=== PATIENT | female | born 1970 | race Hispanic/Latino ===

== ENCOUNTER 2018-07-30 13:42 | Emergency (ER) | payer OTHER ==
[~2018-07-30] VITALS: Ht 172.7 cm; Wt 134.9 kg
[~2018-07-30 13:42] MED LIST: DOXEPIN HCL100 MG PO; PRILOSEC20 MG PO; WELLBUTRIN100 MG PO; Z.0.CITALOPRAM HBR40; ZOLOFT100 MG PO; [UNRECOGNIZED DRUG - OTHER]; [UNRECOGNIZED DRUG - OTHER]
[2018-07-30] MEDS ORDERED: SODIUM CHLORIDE 0.9% 1000ML 1,000 ML ONE (14:15)
[2018-07-30] MEDS ORDERED: KETOROLAC TROMETHAMINE 30 MG/ML VIAL IV STA (15:28)
[2018-07-30] MEDS ORDERED: DICYCLOMINE HCL 20 MG TAB PO ONE (15:30)
[2018-07-30] MEDS ORDERED: ONDANSETRON HCL 4 MG ORAL DISINTEGRATING TAB PO ONE (15:30)
[2018-07-30] MEDS ORDERED: ONDANSETRON HCL INJ 2 MG/ML VIAL IV STA (15:37)
[2018-07-30] MEDS ORDERED: ONDANSETRON HCL INJ 2 MG/ML VIAL IV NR (15:45)
--- NOTE | 2018-07-30 15:54 | Diagnostic Imaging Report ---
EXAMINATION: CT of the abdomen and pelvis with contrast. TECHNIQUE: Helical CT images of the abdomen and pelvis were performed from the lung bases to the lesser trochanters after the intravenous administration of 100 cc of Isovue 300 and the oral administration of none. Coronal and sagittal reformatted images were obtained. COMPARISON: September 19, 2017 CLINICAL HISTORY:Abdominal pain DISCUSSION: ABDOMEN/PELVIS: LOWER THORAX:Unremarkable. HEPATOBILIARY: Hepatic steatosis No intra-or extrahepatic biliary ductal dilation. The gallbladder is normal. SPLEEN: No splenomegaly. PANCREAS: No focal masses or ductal dilatation. ADRENALS: No adrenal nodules. KIDNEYS/URETERS: 2 cm left renal hypodensity, likely cyst and is stable. PELVIC ORGANS/BLADDER: The bladder is normal. Hysterectomy. PERITONEUM/RETROPERITONEUM: No free air or fluid. LYMPH NODES: No intra-abdominal, retroperitoneal, pelvic or inguinal lymphadenopathy. VESSELS: The celiac trunk,superior and inferior mesenteric and bilateral renal arteries are patent The portal, superior mesenteric and splenic veins are patent. GI TRACT: No distention or wall thickening. Appendix appears absent. Lap band at the gastroesophageal junction appears intact. No slippage. BONES AND SOFT TISSUE: No bony destructive lesions. Sclerosis at the sacroiliac joint related to prior stress response. IMPRESSION: No acute CT finding. Hepatic steatosis. Lap band without slippage. Signed by: Dr. Tushar Gary M.D. on 07/30/2018 3:50 PM
[2018-07-30] MEDS ORDERED: ZOFRAN ODT4 MG SL (17:08)
[2018-07-30] MEDS ORDERED: DICYCLOMINE HCL20 MG PO (17:08)
== END 2018-07-30 17:34 | disposition home or self-care (01) ==
LOC: FSED 13:42
DX: R10.30 Lower abdominal pain, unspecified (principal); R11.2 Nausea with vomiting, unspecified; A09 Infectious gastroenteritis and colitis, unspecified; A08.0 Rotaviral enteritis; K21.9 Gastro-esophageal reflux disease without esophagitis; F32.9 Major depressive disorder, single episode, unspecified
CPT/HCPCS: 74177; 80053; 81003; 85025; 99284; J1885; J7030

== ENCOUNTER 2018-12-09 11:04 | Emergency (ER) | payer OTHER ==
[~2018-12-09] VITALS: Ht 172.7 cm; Wt 134.7 kg
[~2018-12-09 11:04] MED LIST changes: +DICYCLOMINE HCL20 MG PO; +ZOFRAN ODT4 MG SL
--- OUTSIDE RECORDS SUMMARY | 2018-12-09 11:08 | XMS REPORT | Clinical Summary ---
Author Author [employer] Organization [employer] Address Unknown Phone Unavailable Care Team Providers Care Biller Name Role Phone Cara Durand MD PCP Allergies No Known Allergies Medications End Date Status Medication Sig Dispensed Refills Start Date Active betamethasone Apply 1 0 dipropionate 0.05 % application 8 lotion topically 2 (two) times a day. APPLY TO SCALP Active desoximetasone (TOPICORT) Apply 1 0 0.25 % ointment application 8 topically 2 (two) times a day. Monday THRU Monday ONLY. LEGS, KNEE CAP, ELBOW Active etanercept (ENBREL) 50 Inject 50 mg 0 mg/mL (0.98 mL) injection under the 8 skin 2 times weekly. Active mometasone (ELOCON) 0.1 % Apply 1 0 ointment application 8 topically 2 (two) times a day. Monday THRU Monday ONLY. TAIL BONE, STOMACH AND BACK OF EARS Active acetaminophen (TYLENOL) Take 325 mg 0 325 MG tablet by mouth every 6 (six) hours as needed for fever. 06/27/2018 Discontinued calcipotriene (DOVONOX) Apply 1 0 0.005 % ointment application 8 topically 2 (two) times a day. Monday AND Monday ONLY. APPLY TO LEG, KNEE CAPS ELBOWS 04/27/2018 Discontinued ibuprofen (ADVIL,MOTRIN) Take 200 mg 0 200 MG tablet by mouth every 6 (six) hours as needed for mild pain. 05/28/2018 pantoprazole (PROTONIX) Take 1 tablet 30 tablet 0 40 MG EC tablet (40 mg total) 8 by mouth daily for 30 days. 07/27/2018 omeprazole (PriLOSEC) 20 Take 1 30 capsule 0 MG capsule capsule (20 8 mg total) by mouth 2 (two) times a day before meals for 30 days. 09/22/2018 L. Take 2 60 each 0 acidophilus,casei,rhamnos capsules by 8 us (BIO K PLUS) 50 mouth daily billion cell for 30 days. capsule,delayed release(DR/EC) capsule 09/02/2018 acetaminophen-codeine Take 1 tablet 40 tablet 0 (TYLENOL WITH CODEINE #3) by mouth 8 300-30 mg per tablet every 6 (six) hours as needed (Pain) for up to 10 days. 09/02/2018 vancomycin (VANCOCIN) 50 Take 5 mL 200 mL 0 mg/ml suspension oral (250 mg 8 suspension total) by mouth 4 (four) times a day for 10 days. 09/02/2018 metroNIDAZOLE (FLAGYL) Take 1 tablet 30 tablet 0 500 MG tablet (500 mg 8 total) by mouth 3 (three) times a day for 10 days. Active Problems Problem Noted Date Colitis due to Clostridium difficile 08/20/2018 C. difficile enteritis 08/17/2018 Generalized abdominal pain 04/26/2018 Encounters Care Team Description Date Type Specialty Jorge Luis Hall MD Siddiqui, Imran Alam, MD C. difficile enteritis (Primary Dx); Left lower quadrant pain 08/17/2018 Hospital General Internal Medicine - Encounter 08/24/2018 Anthony Dunham MD ESOPHAGOGASTRODUODENOSCOPY (EGD) 06/26/2018 Surgery Gastroenterology Rose Marie Patel 06/26/2018 Anesthesia Gastroenterology Event Jarred Quiñonez MD Yerramadha, Muralidhar Reddy, MD Siddiqui, Imran Alam, MD Generalized abdominal pain (Primary Dx); Microscopic hematuria 06/22/2018 Emergency General Internal Medicine - 06/27/2018 Cory Ram MD 04/27/2018 Anesthesia Gastroenterology Event Isaiah Mcfadden MD ESOPHAGOGASTRODUODENOSCOPY (EGD) 04/27/2018 Surgery Gastroenterology Song Gordon MD Teqwimuah, Remy, DO Generalized abdominal pain (Primary Dx) 04/26/2018 Emergency General Surgery - 04/27/2018 after 12/08/2017 Social History Date Tobacco Use Types Packs/Day Years Used Never Smoker Smokeless Tobacco: Never Used Alcohol Use Drinks/Week oz/Week Comments No Sex Assigned at Date Recorded Not on file Industry Job Start Date Occupation Not on file Not on file Not on file Travel End Travel History Travel Start No recent travel history available. Last Filed Vital Signs Time Taken Vital Sign Reading 08/24/2018 12:36 PM CDT Blood Pressure 126/81 08/24/2018 12:36 PM CDT Pulse 85 08/24/2018 12:36 PM CDT Temperature 37.1 C (98.8 F) 08/24/2018 12:36 PM CDT Respiratory Rate 18 08/24/2018 12:36 PM CDT Oxygen Saturation 99% - Inhaled Oxygen - Concentration 08/17/2018 6:49 PM CDT Weight 132 kg (292 lb) 08/17/2018 6:49 PM CDT Height 172.7 cm (5' 8") 08/17/2018 6:49 PM CDT Body Mass Index 44.4 Plan of Treatment Health Maintenance Due Date Last Done Comments CERVICAL CANCER SCREENING 1993 INFLUENZA VACCINE 06/13/2018 12/12/2017 Procedures Comments Procedure Name Priority Date/Time Associated Diagnosis HEMOGLOBIN & HEMATOCRIT Routine 08/22/2018 5:[address] ABDOMEN PELVIS W WO Routine 08/20/2018 CONTRAST 8:05 PM CDT CLOSTRIDIUM DIFFICILE Routine 08/19/2018 TOXIN 8:01 PM CDT ESTIMATED GFR Routine 08/19/2018 4:54 AM CDT HC COMPLETE BLD COUNT Routine 08/19/2018 W/AUTO DIFF 4:54 AM CDT BASIC METABOLIC PANEL Routine 08/19/2018 4:54 AM CDT HCG QUALITATIVE, URINE STAT 08/17/2018 SCREEN 10:21 PM CDT URINALYSIS SCREEN AND STAT 08/17/2018 MICROSCOPY, WITH REFLEX 10:21 PM CDT TO CULTURE URINE CULTURE STAT 08/17/2018 10:[address] ABDOMEN PELVIS W STAT 08/17/2018 CONTRAST 10:07 PM CDT ESTIMATED GFR STAT 08/17/2018 8:15 PM CDT LIPASE LEVEL STAT 08/17/2018 8:15 PM CDT COMPREHENSIVE METABOLIC STAT 08/17/2018 PANEL 8:15 PM CDT HC COMPLETE BLD COUNT STAT 08/17/2018 W/AUTO DIFF 8:15 PM CDT ESOPHAGOGASTRODUODENOSCOP 06/26/2018 ABDOMINAL PAIN Y (EGD) 12:45 PM CDT SURGICAL PATHOLOGY Routine 06/26/2018 REQUEST 9:51 AM CDT NM HEPATOBILIARY W PHARM Routine 06/25/2018 3:53 PM CDT ZZESTIMATED GFR Routine 06/25/2018 9:25 AM CDT HC COMPLETE BLD COUNT Routine 06/25/2018 W/AUTO DIFF 9:25 AM CDT COMPREHENSIVE METABOLIC Routine 06/25/2018 PANEL 9:25 AM CDT ZZESTIMATED GFR Routine 06/23/2018 5:20 AM CDT LIPASE LEVEL Routine 06/23/2018 5:20 AM CDT COMPREHENSIVE METABOLIC Routine 06/23/2018 PANEL 5:20 AM CDT HC COMPLETE BLD COUNT Routine 06/23/2018 W/AUTO DIFF 5:20 AM CDT ECG 12-LEAD STAT 06/23/2018 1:[address] ABDOMEN PELVIS W STAT 06/23/2018 CONTRAST 12:14 AM CDT ZZESTIMATED GFR Routine 06/22/2018 11:30 PM CDT LIPASE LEVEL Routine 06/22/2018 11:30 PM CDT COMPREHENSIVE METABOLIC Routine 06/22/2018 PANEL 11:30 PM CDT US GALLBLADDER STAT 06/22/2018 11:06 PM CDT URINALYSIS SCREEN AND STAT 06/22/2018 MICROSCOPY, WITH REFLEX 10:45 PM CDT TO CULTURE ECG ED PRELIMINARY Routine 06/22/2018 INTERPRETATION 10:43 PM CDT PARTIAL THROMBOPLASTIN STAT 06/22/2018 TIME (PTT) 10:30 PM CDT PROTHROMBIN TIME WITH INR STAT 06/22/2018 10:30 PM CDT HC COMPLETE BLD COUNT STAT 06/22/2018 W/AUTO DIFF 10:30 PM CDT FL UPPER GI AND SMALL Routine 04/27/2018 BOWEL 2:30 PM CDT SURGICAL PATHOLOGY Routine 04/27/2018 REQUEST 7:49 AM CDT ESOPHAGOGASTRODUODENOSCOP 04/27/2018 Abdominal pain Y (EGD) 7:30 AM CDT ZZESTIMATED GFR Routine 04/27/2018 4:52 AM CDT BASIC METABOLIC PANEL Routine 04/27/2018 4:52 AM CDT HC COMPLETE BLD COUNT Routine 04/27/2018 W/AUTO DIFF 4:[address] ABDOMEN PELVIS WO STAT 04/26/2018 CONTRAST 5:08 PM CDT OCCULT BLOOD, STOOL Routine 04/26/2018 5:00 PM CDT ZZESTIMATED GFR STAT 04/26/2018 4:41 PM CDT LIPASE LEVEL STAT 04/26/2018 4:41 PM CDT COMPREHENSIVE METABOLIC STAT 04/26/2018 PANEL 4:41 PM CDT HC COMPLETE BLD COUNT STAT 04/26/2018 W/AUTO DIFF 4:41 PM CDT URINALYSIS SCREEN AND STAT 04/26/2018 MICROSCOPY, WITH REFLEX 2:17 PM CDT TO CULTURE after 12/08/2017 Results * Hemoglobin & hematocrit (08/22/2018 5:02 AM CDT) HGB 14.3 12.0 - 16.0 g/dL [facility] DEPARTMENT OF PATHOLOGY AND GENOMIC MEDICINE HCT 46.1 37.0 - 47.0 % [facility] DEPARTMENT OF PATHOLOGY AND GENOMIC MEDICINE Specimen Blood Performing Organization Address City/State/Zipcode Phone Number [facility] [place] [address] [place] [address] PATHOLOGY AND GENOMIC MEDICINE * CT Abdomen Pelvis W Wo Contrast (08/20/2018 8:05 PM CDT) Narrative Performed At EXAMINATION:CT ABDOMEN PELVIS W WO CONTRAST [facility] CLINICAL HISTORY:Abd paindiverticulitis suspected TECHNIQUE: CT of the abdomen and pelvis was performed without contrast utilizing renal stone protocol. Subsequently, postcontrast CT of the abdomen and pelvis was obtained with multiphase renal mass and CT urogram protocol. Sagittal and coronal computerized reformatted images were also obtained. COMPARISON:August 17, 2018 CT abdomen and pelvis noncontrast FINDINGS: Lung bases are clear. No free intraperitoneal air or fluid. Precontrast sequences through the abdomen and pelvis show minimal atherosclerotic change in aorta. No tract calculi. No pancreatic calcifications. Abdomen: Gastric lap band device as on previous. Diffuse fatty infiltration of the liver unchanged. No mass or abnormal enhancement. Gallbladder grossly unremarkable. Adrenal glands normal size. Pancreas normal. Spleen normal size. Abdominal aorta normal caliber. Kidneys are normal in size. There is no hydronephrosis. No renal calculus. No perinephric infiltration. Benign 16 mm cortical cyst upper pole left kidney. Symmetrical bilateral renal function. Scattered fecal material in the colon. No obstruction seen in the abdomen Pelvis: No bowel obstruction. No diverticulitis. Bladder decompressed. Uterus and ovaries not seen. No pelvic mass or sidewall adenopathy. Appendix not identified. Minimal degenerative changes lower thoracic spine IMPRESSION: Fatty infiltration of the liver. No bowel obstruction or diverticulitis. Left-sided renal cortical cyst benign in appearance. Nonvisualization of the appendix Gastric banding changes as before Otherwise unremarkable CT abdomen and pelvis [id number] Procedure Note Hm Interface, Radiology Results Incoming - 08/20/2018 8:17 PM CDT EXAMINATION: CT ABDOMEN PELVIS W WO CONTRAST CLINICAL HISTORY: Abd pain diverticulitis suspected TECHNIQUE: CT of the abdomen and pelvis was performed without contrast utilizing renal stone protocol. Subsequently, postcontrast CT of the abdomen and pelvis was obtained with multiphase renal mass and CT urogram protocol. Sagittal and coronal computerized reformatted images were also obtained. COMPARISON: August 17, 2018 CT abdomen and pelvis noncontrast FINDINGS: Lung bases are clear. No free intraperitoneal air or fluid. Precontrast sequences through the abdomen and pelvis show minimal atherosclerotic change in aorta. No tract calculi. No pancreatic calcifications. Abdomen: Gastric lap band device as on previous. Diffuse fatty infiltration of the liver unchanged. No mass or abnormal enhancement. Gallbladder grossly unremarkable. Adrenal glands normal size. Pancreas normal. Spleen normal size. Abdominal aorta normal caliber. Kidneys are normal in size. There is no hydronephrosis. No renal calculus. No perinephric infiltration. Benign 16 mm cortical cyst upper pole left kidney. Symmetrical bilateral renal function. Scattered fecal material in the colon. No obstruction seen in the abdomen Pelvis: No bowel obstruction. No diverticulitis. Bladder decompressed. Uterus and ovaries not seen. No pelvic mass or sidewall adenopathy. Appendix not identified. Minimal degenerative changes lower thoracic spine IMPRESSION: Fatty infiltration of the liver. No bowel obstruction or diverticulitis. Left-sided renal cortical cyst benign in appearance. Nonvisualization of the appendix Gastric banding changes as before Otherwise unremarkable CT abdomen and pelvis [id number] Performing Organization Address City/State/Zipcode Phone Number [facility] [address] [place] [address] * C difficile toxin (08/19/2018 8:01 PM CDT) Clostridium difficile Positive for C. difficile [facility] DEPARTMENT OF toxin toxin (A) PATHOLOGY AND Comment: GENOMIC MEDICINE Specimen Information Specimen Source: Stool Specimen Site: Not otherwise specified Specimen Stool - Not otherwise specified Performing Organization Address City/State/Zipcode Phone Number [facility] DEPARTMENT OF [address] [place] [address] PATHOLOGY AND GENOMIC MEDICINE * Estimated GFR (08/19/2018 4:54 AM CDT) Only the most recent of 2 results within the time period is included. Estimated GFR >=90 mL/min/1.73 m2 [facility] DEPARTMENT OF Comment: PATHOLOGY AND [employer] GENOMIC MEDICINE rpretation G1 >=90 Normal or high G2 60-89Mildly decreased [id number] Mildly to moderately decreased [id number] Moderately to severely decreased G4 15-29Severely decreased G5 <15Kidney failure The eGFR was calculated using the Chronic Kidney Disease Epidemiology Collaboration (CKD-EPI) equation. Interpretation is based on recommendations of the National Kidney Foundation-Kidney Disease Outcomes Quality Initiative (NKF-KDOQI) published in 2014. Specimen Plasma specimen Performing Organization Address City/[facility]/Zipcode Phone [place] [place] [address] [place] [address] PATHOLOGY AND GENOMIC MEDICINE * CBC with platelet and differential (08/19/2018 4:54 AM CDT) Only the most recent of 7 results within the time period is included. WBC 6.17 4.50 - 11.00 k/uL [facility] DEPARTMENT OF PATHOLOGY AND GENOMIC MEDICINE RBC 4.58 4.20 - 5.50 m/uL [facility] DEPARTMENT OF PATHOLOGY AND GENOMIC MEDICINE HGB 12.8 12.0 - 16.0 g/dL [facility] DEPARTMENT OF PATHOLOGY AND GENOMIC MEDICINE HCT 40.3 37.0 - 47.0 % [facility] DEPARTMENT OF PATHOLOGY AND GENOMIC MEDICINE MCV 88.0 82.0 - 100.0 fL [facility] DEPARTMENT OF PATHOLOGY AND GENOMIC MEDICINE MCH 27.9 27.0 - 34.0 pg [facility] DEPARTMENT OF PATHOLOGY AND GENOMIC MEDICINE MCHC 31.8 31.0 - 37.0 g/dL [facility] DEPARTMENT OF PATHOLOGY AND GENOMIC MEDICINE RDW - SD 42.6 37.0 - 55.0 fL [facility] DEPARTMENT OF PATHOLOGY AND GENOMIC MEDICINE MPV 9.3 8.8 - 13.2 fL [facility] DEPARTMENT OF PATHOLOGY AND GENOMIC MEDICINE Platelet count 241 150 - 400 k/uL [facility] DEPARTMENT OF PATHOLOGY AND GENOMIC MEDICINE Nucleated RBC 0.00 /100 WBC [facility] DEPARTMENT OF PATHOLOGY AND GENOMIC MEDICINE Neutrophils 66.0 39.0 - 69.0 % [facility] DEPARTMENT OF PATHOLOGY AND GENOMIC MEDICINE Lymphocytes 25.1 25.0 - 45.0 % [facility] DEPARTMENT OF PATHOLOGY AND GENOMIC MEDICINE Monocytes 5.7 0.0 - 10.0 % [facility] DEPARTMENT OF PATHOLOGY AND GENOMIC MEDICINE Eosinophils 2.6 0.0 - 5.0 % [facility] DEPARTMENT OF PATHOLOGY AND GENOMIC MEDICINE Basophils 0.3 0.0 - 1.0 % [facility] OF PATHOLOGY AND GENOMIC MEDICINE Specimen Blood Performing Organization Address City/[facility] Cent[facility] Phone Number [address] [place] [phone] PATHOLOGY [facility] * Basic metabolic panel (08/19/2018 4:54 AM CDT) Only the most recent of 2 results within the time period is included. Sodium 141 135 - 148 mEq/L [facility] DEPARTMENT OF PATHOLOGY AND GENOMIC MEDICINE Potassium 3.9 3.5 - 5.0 mEq/L [facility] DEPARTMENT OF PATHOLOGY AND GENOMIC MEDICINE Chloride 104 98 - 112 mEq/L [facility] DEPARTMENT OF PATHOLOGY AND GENOMIC MEDICINE CO2 26 24 - 31 mEq/L [facility] DEPARTMENT OF PATHOLOGY AND GENOMIC MEDICINE Anion gap 11@ANIO 7 - 15 mEq/L [facility] DEPARTMENT OF PATHOLOGY AND GENOMIC MEDICINE BUN 17 6 - 20 mg/dL [facility] DEPARTMENT OF PATHOLOGY AND GENOMIC MEDICINE Creatinine 0.60 0.50 - 0.90 mg/dL [facility] DEPARTMENT OF PATHOLOGY AND GENOMIC MEDICINE Glucose 97 65 - 99 mg/dL [facility] DEPARTMENT OF PATHOLOGY AND GENOMIC MEDICINE Calcium 9.5 8.3 - 10.2 mg/dL [facility] DEPARTMENT OF PATHOLOGY AND GENOMIC MEDICINE Specimen Plasma specimen Performing Organization Address City/[facility] Cent[facility]ode Phone Number [place] [address] [place] [phone] PATHOLOGY [facility] * Urinalysis screen and microscopy, with reflex to culture (08/17/2018 10:21 PM CDT) Only the most recent of 3 results within the time period is included. Specimen site Clean catch [facility] DEPARTMENT OF PATHOLOGY AND GENOMIC MEDICINE Color, UA Yellow [facility] DEPARTMENT OF PATHOLOGY AND GENOMIC MEDICINE Appearance, UA Clear [facility] DEPARTMENT OF PATHOLOGY AND GENOMIC MEDICINE Specific gravity, UA 1.030 1.001 - 1.035 [facility] DEPARTMENT OF PATHOLOGY AND GENOMIC MEDICINE pH, UA 5.0 5.0 - 8.5 [facility] DEPARTMENT OF PATHOLOGY AND GENOMIC MEDICINE Protein, UA Negative Negative [facility] DEPARTMENT OF PATHOLOGY AND GENOMIC MEDICINE Glucose, UA Negative Negative [facility] DEPARTMENT OF PATHOLOGY AND GENOMIC MEDICINE Ketones, UA Negative Negative [facility] DEPARTMENT OF PATHOLOGY AND GENOMIC MEDICINE Bilirubin, UA Negative Negative [facility] DEPARTMENT OF PATHOLOGY AND GENOMIC MEDICINE Blood, UA Negative Negative [facility] DEPARTMENT OF PATHOLOGY AND GENOMIC MEDICINE Nitrite, UA Negative Negative [facility] DEPARTMENT OF PATHOLOGY AND GENOMIC MEDICINE Urobilinogen, UA Negative <2.0 [facility] DEPARTMENT OF PATHOLOGY AND GENOMIC MEDICINE Leukocyte esterase, UA Negative Negative [facility] DEPARTMENT OF PATHOLOGY AND GENOMIC MEDICINE Epithelial cells, UA Many /HPF [facility] DEPARTMENT OF PATHOLOGY AND GENOMIC MEDICINE WBC, UA 0-5 0 - 4 /HPF [facility] DEPARTMENT OF PATHOLOGY AND GENOMIC MEDICINE RBC, UA 0-5 0 - 5 /HPF [facility] DEPARTMENT OF PATHOLOGY AND GENOMIC MEDICINE Bacteria, UA None seen None seen [facility] DEPARTMENT OF PATHOLOGY AND GENOMIC MEDICINE Yeast, UA None seen [facility] DEPARTMENT OF PATHOLOGY AND GENOMIC MEDICINE Yeast with pseudohyphae, None seen [facility] DEPARTMENT OF UA PATHOLOGY AND GENOMIC MEDICINE Specimen Urine Performing Organization Address [facility] Cent[facility]ode Phone Number [address] [place] [address] PATHOLOGY AND GENOMIC MEDICINE * hCG qualitative, urine screen (08/17/2018 10:21 PM CDT) hCG qualitative, urine Negative Negative [facility] DEPARTMENT OF Comment: PATHOLOGY AND The manufacturers stated GENOMIC MEDICINE sensitivity of HcG test for serum is >/=10 mIU/ml and urine is >/=20mIU/ml. Specimen Urine Performing Organization Address [facility] Centercode Phone Number [address] [place] [address] PATHOLOGY AND [facility] MEDICINE * Urine culture (08/17/2018 10:21 PM CDT) Urine culture SEE COMMENTComment: [facility] DEPARTMENT OF Bacteriuria screen negative. PATHOLOGY AND GENOMIC MEDICINE Specimen Urine Performing Organization Address [facility] Centercode Phone Number [address] [place] [address] PATHOLOGY AND [facility] MEDICINE * CT Abdomen Pelvis W Contrast (08/17/2018 10:07 PM CDT) Only the most recent of 2 results within the time period is included. Narrative Performed At Examination:CT ABDOMEN PELVIS W CONTRAST [facility] Clinical History: eval for diverticulitis Comparison: None. Findings: CT scans are performed using radiation dose reduction techniques.Technical factors are evaluated and adjusted to ensure appropriate moderation of exposure.Automated dose management technology is applied to adjust radiation exposure while achieving a diagnostic quality image. CT scan of the abdomen and pelvis was performed after intravenous contrast. The liver is diffusely low in density. The spleen, pancreas, gallbladder, and adrenal glands are unremarkable. There is a left renal cyst noted measuring 2.1 cm. Right kidney is unremarkable. No hydronephrosis is seen. The appendix is not visualized. No bowel thickening or fat stranding is seen. No bowel dilatation is seen. No free air or fluid is seen. Urinary bladder is unremarkable. The visualized lung bases are clear. The patient is status post gastric banding. IMPRESSION: 1. Status post gastric banding. 2. Fatty liver. 3. Otherwise no acute abnormality identified in abdomen or pelvis. [id number] Procedure Note Interface, Radiology Results Incoming - 08/17/2018 10:16 PM CDT Examination: CT ABDOMEN PELVIS W CONTRAST Clinical History: eval for diverticulitis Comparison: None. Findings: CT scans are performed using radiation dose reduction techniques. Technical factors are evaluated and adjusted to ensure appropriate moderation of exposure. Automated dose management technology is applied to adjust radiation exposure while achieving a diagnostic quality image. CT scan of the abdomen and pelvis was performed after intravenous contrast. The liver is diffusely low in density. The spleen, pancreas, gallbladder, and adrenal glands are unremarkable. There is a left renal cyst noted measuring 2.1 cm. Right kidney is unremarkable. No hydronephrosis is seen. The appendix is not visualized. No bowel thickening or fat stranding is seen. No bowel dilatation is seen. No free air or fluid is seen. Urinary bladder is unremarkable. The visualized lung bases are clear. The patient is status post gastric banding. IMPRESSION: 1. Status post gastric banding. 2. Fatty liver. 3. Otherwise no acute abnormality identified in abdomen or pelvis. [id number] Performing Organization Address City/State/Zipcode Phone Number [facility] [address] [place] [address] * Lipase level (08/17/2018 8:15 PM CDT) Only the most recent of 4 results within the time period is included. Lipase 41 13 - 60 U/L [facility] DEPARTMENT OF PATHOLOGY AND GENOMIC MEDICINE Specimen Plasma specimen Performing Organization Address City/State/Zipcode Phone Number [facility] [address] [address] PATHOLOGY AND GENOMIC MEDICINE * Comprehensive metabolic panel (08/17/2018 8:15 PM CDT) Only the most recent of 5 results within the time period is included. Sodium 144 135 - 148 mEq/L [facility] DEPARTMENT OF PATHOLOGY AND GENOMIC MEDICINE Potassium 4.3 3.5 - 5.0 mEq/L [facility] DEPARTMENT OF PATHOLOGY AND GENOMIC MEDICINE Chloride 104 98 - 112 mEq/L [facility] DEPARTMENT OF PATHOLOGY AND GENOMIC MEDICINE CO2 28 24 - 31 mEq/L [facility] DEPARTMENT OF PATHOLOGY AND GENOMIC MEDICINE Anion gap 12@ANIO 7 - 15 mEq/L [facility] DEPARTMENT OF PATHOLOGY AND GENOMIC MEDICINE BUN 18 6 - 20 mg/dL [facility] DEPARTMENT OF PATHOLOGY AND GENOMIC MEDICINE Creatinine 0.60 0.50 - 0.90 mg/dL [facility] DEPARTMENT OF PATHOLOGY AND GENOMIC MEDICINE Glucose 96 65 - 99 mg/dL [facility] DEPARTMENT OF PATHOLOGY AND GENOMIC MEDICINE Calcium 10.6 (H) 8.3 - 10.2 mg/dL [facility] DEPARTMENT OF PATHOLOGY AND GENOMIC MEDICINE Protein 8.0 6.3 - 8.3 g/dL [facility] DEPARTMENT OF Comment: PATHOLOGY AND [employer] GENOMIC MEDICINE 4.6-7.0 g/dL 1 week 4.4-7.6 g/dL 7 months-1year 5.1-7.3 g/dL 1-2 years5.6-7 .5 g/dL >3 years6.0-8 .0 g/dL 18-150 6.3-8.3 g/dL Albumin 4.5 3.5 - 5.0 g/dL [facility] DEPARTMENT OF PATHOLOGY AND GENOMIC MEDICINE A/G ratio 1.3 0.7 - 3.8 [facility] DEPARTMENT OF PATHOLOGY AND GENOMIC MEDICINE Alkaline phosphatase 147 (H) 35 - 104 U/L [facility] DEPARTMENT OF PATHOLOGY AND GENOMIC MEDICINE AST 25 10 - 35 U/L [facility] DEPARTMENT OF PATHOLOGY AND GENOMIC MEDICINE ALT 23 5 - 50 U/L [facility] DEPARTMENT OF PATHOLOGY AND GENOMIC MEDICINE Total bilirubin 0.2 0.0 - 1.2 mg/dL [facility] DEPARTMENT OF PATHOLOGY AND GENOMIC MEDICINE Specimen Plasma specimen Performing Organization Address City/[facility]/Zipcode Phone Number [facility] [address] [place] [address] PATHOLOGY AND GENOMIC MEDICINE * Surgical pathology request (06/26/2018 9:51 AM CDT) Only the most recent of 2 results within the time period is included. [facility] DEPARTMENT OF PATHOLOGY AND GENOMIC MEDICINE Surgical pathology report See link below for PDF Lab [facility] DEPARTMENT OF Report PATHOLOGY AND GENOMIC MEDICINE Result status This is Final Report to [facility] DEPARTMENT OF [id number] PATHOLOGY AND GENOMIC MEDICINE Performing Organization Address [facility] Phone Number [place] [address] [place] [address] PATHOLOGY AND GENOMIC MEDICINE * NM Hepatobiliary W Pharm (HIDA Scan w Pharm) (06/25/2018 3:53 PM CDT) Narrative Performed At PROCEDURE: NM HEPATOBILIARY W PHARM (HIDA SCAN W PHARM) [facility] INDICATION: RUQ paincholecystitis suspected COMPARISON: Gallbladder ultrasound 06/22/2018 TECHNIQUE: The patient was injected with 6 mCi of [id number] and dynamic images of the abdomen were acquired for up to 1 hour. The patient was then given a fatty meal per protocol and imaged for an additional 60 minutes. FINDINGS: Tracer activity is seen within the gallbladder and small bowel by one hour of imaging. Following intake of a fatty meal there is normal contraction of the gallbladder with a calculated ejection fraction of 94%. IMPRESSION: 1.No scintigraphic evidence of acute cholecystitis or common bile duct obstruction. 2.Normal gallbladder ejection fraction. [facility]-[id number] Procedure Note [facility], Radiology Results Incoming - 06/25/2018 4:22 PM CDT PROCEDURE: NM HEPATOBILIARY W PHARM (HIDA SCAN W PHARM) INDICATION: RUQ pain cholecystitis suspected COMPARISON: Gallbladder ultrasound 06/22/2018 TECHNIQUE: The patient was injected with 6 mCi of [id number] and dynamic images of the abdomen were acquired for up to 1 hour. The patient was then given a fatty meal per protocol and imaged for an additional 60 minutes. FINDINGS: Tracer activity is seen within the gallbladder and small bowel by one hour of imaging. Following intake of a fatty meal there is normal contraction of the gallbladder with a calculated ejection fraction of 94%. IMPRESSION: 1. No scintigraphic evidence of acute cholecystitis or common bile duct obstruction. 2. Normal gallbladder ejection fraction. [facility]-[id number] Performing Organization Address [facility]/Zipcode Phone Number [place] [address] [place] [address] * Estimated GFR (06/25/2018 9:25 AM CDT) Only the most recent of 5 results within the time period is included. GFR Non Af Amer >90 mL/min/1.73 m2 [facility] DEPARTMENT OF PATHOLOGY AND GENOMIC MEDICINE GFR Af Amer >90 mL/min/1.73 m2 [facility] DEPARTMENT OF Comment: PATHOLOGY AND Chronic kidney disease: <60 GENOMIC MEDICINE mL/min/1.73m2 Kidney failure: <15 mL/min/1.73m2 The estimated GFR is calculated from the IDMS-traceable Modification of Diet in Renal Disease Equation. The accuracy of the calculation is poor when the creatinine is normal. Calculated values >90 mL/min/1.73m2 are not reported. This equation has not been validated in children (<18 years), women, the elderly (>70 years), or ethnic groups other than Caucasians and Americans. Specimen Plasma specimen Performing Organization Address [facility] Cent[facility]ode Phone Number [place] [phone] [place] [address] PATHOLOGY AND GENOMIC MEDICINE * ECG 12 lead (06/23/2018 1:50 AM CDT) Ventricular rate 75 [facility] Atrial rate 75 [facility] OH interval 154 [facility] QRSD interval 78 [facility] QT interval 398 [facility] QTC interval 444 [facility] P axis 1 30 [facility] QRS axis 1 15 [facility] T wave axis 13 [facility] EKG impression Normal sinus rhythm-Low [facility] MUSE voltage QRS-Inferior infarct (cited on or before 30-MAR-2016)-Cannot rule out Anterior infarct (cited on or before 12-JUL-2007)-Abnormal ECG-In automated comparison with ECG of 12-JUN-2017 16:08,-Questionable change in initial forces of Inferior leads- Performing Organization Address [facility]y Phone Number [facility] [address] [place] [address] * US Gallbladder (06/22/2018 11:06 PM CDT) Narrative Performed At EXAMINATION:US GALLBLADDER [facility] CLINICAL HISTORY: Right upper quadrant pain COMPARISON:None. FINDINGS: Gallbladder: The gallbladder is without evidence of calculi. The gallbladder wall is not thickened and there is no pericholecystic fluid. CBD: 4 mm Portal vein: The portal vein demonstrates normal hepatopedal flow. Liver: The visualized portions of liver are unremarkable. IMPRESSION: Normal gallbladder ultrasound examination. [id number] Procedure Note Hm Interface, Radiology Results Incoming - 06/22/2018 11:17 PM CDT EXAMINATION: US GALLBLADDER CLINICAL HISTORY: Right upper quadrant pain COMPARISON: None. FINDINGS: Gallbladder: The gallbladder is without evidence of calculi. The gallbladder wall is not thickened and there is no pericholecystic fluid. CBD: 4 mm Portal vein: The portal vein demonstrates normal hepatopedal flow. Liver: The visualized portions of liver are unremarkable. IMPRESSION: Normal gallbladder ultrasound examination. [facility]-[id number] Performing Organization Address [facility]cony Phone Number [facility] [address] [place] [address] * ECG ED Preliminary Interpretation - NOT AN ORDER (06/22/2018 10:43 PM CDT) Narrative Performed At Jarred Quiñonez MD 06/23/20183:13 PM ECG ED Preliminary Interpretation - Not an Order Performed by: SHAJI DWYER Authorized by: JARRED QUIÑONEZ ECG reviewed by ED Physician in the absence of a car seat coverer: yes Previous ECG: Previous ECG:Compared to current Comparison ECG info:06/12/2017 Similarity:No change Interpretation: Interpretation: abnormal Rate: ECG rate:75 ECG rate assessment: normal Rhythm: Rhythm: sinus rhythm Ectopy: Ectopy: none Conduction: Conduction: normal ST segments: ST segments:Normal T waves: T waves: normal Comments: Low voltage QRS , inferior infarct age undetermined. Cannot rule our ant infarct, age undetermined * Partial thromboplastin time, activated (06/22/2018 10:30 PM CDT) PTT 28.3 23.0 - 36.0 sec [facility] DEPARTMENT OF Comment: PATHOLOGY AND PTT therapeutic range for GENOMIC MEDICINE unfractionated heparin is 61.0-112.0 seconds which corresponds to Anti-Xa 0.3-0.7 U/ml. Specimen Blood Performing Organization Address City/[facility]/Zipcode Phone Number [facility] [place] [address] [place] [address] PATHOLOGY AND GENOMIC MEDICINE * Prothrombin time with INR (06/22/2018 10:30 PM CDT) Prothrombin time 13.2 12.0 - 15.0 sec [facility] DEPARTMENT OF PATHOLOGY AND GENOMIC MEDICINE INR 1.0 [facility] DEPARTMENT OF Comment: PATHOLOGY AND The International Normalized GENOMIC MEDICINE Ratio (INR) is a therapeutic monitoring tool for patients who are stable on oral anticoagulant therapy. An INR of 2.0-3.0 is suggested for deep vein thrombosis/pulmonary embolism. Specimen Blood Performing Organization Address [facility]cony Phone [place] [place] [address] [place] [address] PATHOLOGY AND GENOMIC MEDICINE * FL Upper GI and Small Bowel Series (04/27/2018 2:30 PM CDT) Narrative Performed At EXAMINATION:FL UPPER GI AND SMALL BOWEL [facility] CLINICAL HISTORY:abdominal pains p gastric band COMPARISON:None. TECHNIQUE:UPPER GI SERIES AND SMALL BOWEL FOLLOW-THROUGH was performed with effervescent granules and barium. FLUOROSCOPIC TIME: 3 minutes 40 seconds, 11 spot images were obtained. IMPRESSION: There is narrowing of the gastric lumen at the level of the gastric band with only a a few millimeters of lumen remaining This did allow passage of contrast material although this is very narrowed and of concern for that reason.Some tertiary wave formation about that level is present and there does appear to be a small hiatal hernia with no demonstrable reflux observed. Socially the stomach was examined. No persistent intraluminal abnormalities or mucosal lesions are identified. The duodenal bulb and loop appear unremarkable to limits of visualization. IMPRESSION: 1. Marked attenuation of the gastric lumen in the fundus region by the LAP-BAND . 2. Esophageal tertiary wave formation and small hiatal hernia. Small bowel follow-through: Mucosal architecture is preserved. The transit time appears within normal limits. The terminal ileum appears within normal limits. There is no evidence of small bowel obstruction hypersecretion or mass effect. The terminal ileum appears unremarkable to the limits of visualization. IMPRESSION: No significant finding is identified [id number] Procedure Note Interface, Radiology Results Incoming - 04/27/2018 3:50 PM CDT EXAMINATION: FL UPPER GI AND SMALL BOWEL CLINICAL HISTORY: abdominal pain s p gastric band COMPARISON: None. TECHNIQUE: UPPER GI SERIES AND SMALL BOWEL FOLLOW-THROUGH was performed with effervescent granules and barium. FLUOROSCOPIC TIME: 3 minutes 40 seconds, 11 spot images were obtained. IMPRESSION: There is narrowing of the gastric lumen at the level of the gastric band with only a a few millimeters of lumen remaining This did allow passage of contrast material although this is very narrowed and of concern for that reason. Some tertiary wave formation about that level is present and there does appear to be a small hiatal hernia with no demonstrable reflux observed. Socially the stomach was examined. No persistent intraluminal abnormalities or mucosal lesions are identified. The duodenal bulb and loop appear unremarkable to limits of visualization. IMPRESSION: 1. Marked attenuation of the gastric lumen in the fundus region by the LAP-BAND . 2. Esophageal tertiary wave formation and small hiatal hernia. Small bowel follow-through: Mucosal architecture is preserved. The transit time appears within normal limits. The terminal ileum appears within normal limits. There is no evidence of small bowel obstruction hypersecretion or mass effect. The terminal ileum appears unremarkable to the limits of visualization. IMPRESSION: No significant finding is identified [id number] Performing Organization Address City/State/Zipcode Phone Number [facility] [address] [place] [address] * CT Abdomen Pelvis Wo Contrast (04/26/2018 5:08 PM CDT) Narrative Performed At EXAMINATION:CT ABDOMEN PELVIS WO CONTRAST [facility] CLINICAL HISTORY:abdominal painhx of multiple abdominal surgeriesdiverticulitis. LLQ tenderness on exam COMPARISON:None. TECHNIQUE: CT of the abdomen and pelvis without intravenous contrast. Absence of contrast decreases sensitivity for detection of focal lesions and vascular pathology. Oral contrast was used. All CT scan performed using radiation dose reduction techniques. Technical factors are evaluated and adjusted to ensure appropriate moderation of exposure. Automated dose management technology is applied to adjust the radiation dose to minimize expose whileachieving a diagnostic quality image. FINDINGS: LUNG BASES:The lung bases are clear.. HEPATOBILIARY: Fatty infiltration of the liver is noted.Limited nonenhanced evaluation of the liver is otherwise unremarkable. No biliary dilatation is seen. GALLBLADDER: No gallstones are seen. No wall thickening or pericholecystic fluid collection is identified. SPLEEN: The spleen is unremarkable.No splenomegaly. PANCREAS:No focal masses or ductal dilation. Limited nonenhanced evaluation of the pancreas is unremarkable. ADRENALS: No adrenal nodules.The adrenal glands are unremarkable. KIDNEYS: Limited nonenhanced evaluation of the kidneys is unremarkable. No renal or ureteral calculus is seen. There is no evidence of hydronephrosis. PERITONEUM/RETROPERITONEUM:No mesenteric or retroperitoneal pathologic lymphadenopathy seen. There is no evidence of free air or free fluid.. GI TRACT:The small bowel is normal in caliber. Scattered retained food debris seen throughout the colon. There is no evidence of diverticulosis. The colon is unremarkable unremarkable. No wall thickening is identified. There is no evidence of inflammatory process. The appendix not seen. No right lower quadrant inflammation is identified. A gastric lap band is noted and appears to be in satisfactory placement. The stomach is unremarkable.. VASCULATURE: Unremarkable. BONES: Unremarkable. ABDOMINAL WALL: Unremarkable. PELVIS: The urinary bladder is unremarkable. The uterus is surgically absent. No pelvic ascites seen. IMPRESSION: No CT evidence of diverticulosis, colitis or bowel obstruction. No CT evidence of renal calculus or obstructive uropathy. Mild hepatitic steatosis. Unremarkable exam otherwise. [facility]-[id number] Procedure Note Hm Interface, Radiology Results Incoming - 04/26/2018 5:24 PM CDT EXAMINATION: CT ABDOMEN PELVIS WO CONTRAST CLINICAL HISTORY: abdominal pain hx of multiple abdominal surgeries diverticulitis. LLQ tenderness on exam COMPARISON: None. TECHNIQUE: CT of the abdomen and pelvis without intravenous contrast. Absence of contrast decreases sensitivity for detection of focal lesions and vascular pathology. Oral contrast was used. All CT scan performed using radiation dose reduction techniques. Technical factors are evaluated and adjusted to ensure appropriate moderation of exposure. Automated dose management technology is applied to adjust the radiation dose to minimize expose while achieving a diagnostic quality image. FINDINGS: LUNG BASES: The lung bases are clear.. HEPATOBILIARY: Fatty infiltration of the liver is noted. Limited nonenhanced evaluation of the liver is otherwise unremarkable. No biliary dilatation is seen. GALLBLADDER: No gallstones are seen. No wall thickening or pericholecystic fluid collection is identified. SPLEEN: The spleen is unremarkable. No splenomegaly. PANCREAS:No focal masses or ductal dilation. Limited nonenhanced evaluation of the pancreas is unremarkable. ADRENALS: No adrenal nodules.The adrenal glands are unremarkable. KIDNEYS: Limited nonenhanced evaluation of the kidneys is unremarkable. No renal or ureteral calculus is seen. There is no evidence of hydronephrosis. PERITONEUM/RETROPERITONEUM: No mesenteric or retroperitoneal pathologic lymphadenopathy seen. There is no evidence of free air or free fluid.. GI TRACT: The small bowel is normal in caliber. Scattered retained food debris seen throughout the colon. There is no evidence of diverticulosis. The colon is unremarkable unremarkable. No wall thickening is identified. There is no evidence of inflammatory process. The appendix not seen. No right lower quadrant inflammation is identified. A gastric lap band is noted and appears to be in satisfactory placement. The stomach is unremarkable.. VASCULATURE: Unremarkable. BONES: Unremarkable. ABDOMINAL WALL: Unremarkable. PELVIS: The urinary bladder is unremarkable. The uterus is surgically absent. No pelvic ascites seen. IMPRESSION: No CT evidence of diverticulosis, colitis or bowel obstruction. No CT evidence of renal calculus or obstructive uropathy. Mild hepatitic steatosis. Unremarkable exam otherwise. [id number] Performing Organization Address City/State/Zipcode Phone Number [facility] [address] [place] [address] * Occult blood, stool (04/26/2018 5:00 PM CDT) Occult blood, stool Negative for occult blood. [facility] DEPARTMENT OF Comment: PATHOLOGY AND Specimen Information GENOMIC MEDICINE Specimen Source: Stool Specimen Site: Nonpreserved Specimen Stool - Nonpreserved Performing Organization Address City/State/Zipcode Phone Number [facility] DEPARTMENT OF [address] [place] [address] [place] [address] PATHOLOGY AND GENOMIC MEDICINE after 12/08/2017 Insurance Payer Benefit Subscriber ID Type Phone Address Plan / Group [facility] xxxxxxxxxxxxx Exchange EXCH[facility] Advance Directives Patient has advance care planning documents on file. For more information, jake lizarraga contact: Zachariah Loera [address] [place] [address]
--- OUTSIDE RECORDS SUMMARY | 2018-12-09 11:08 | XMS REPORT | Clinical Summary ---
Author Author [facility] Address Unknown Phone Unavailable Care Team Providers Care Purchasing Expeditor Name Role Phone Cara Durand MD PCP Unavailable Allergies No Known Allergies Medications End Date Status Medication Sig Dispensed Refills Start Date Active pantoprazole (PROTONIX) Take 1 tablet 60 tablet 1 40 MG tablet (40 mg total) 7 by mouth 2 (two) times daily. Active Problems Problem Noted Date Chest pain, unspecified type 02/06/2017 Social History Date Tobacco Use Types Packs/Day Years Used Never Smoker Alcohol Use Drinks/Week oz/Week Comments No Sex Assigned at Date Recorded Not on file Industry Job Start Date Occupation Not on file Not on file Not on file Travel End Travel History Travel Start No recent travel history available. Last Filed Vital Signs Not on file Plan of Treatment Not on file Results Not on fileafter 12/08/2017 Insurance Payer Benefit Subscriber ID Type Phone Address Plan / Group [facility] xxxxxxxxxxxxx [phone] [facility] [address] (Home) [place] [address] Wero Roqueelle Personal/F Self [id number] ([place]) [place] [address] Advance Directives For more information, please contact: [facility] [address] [place] [address] Date Inactivated Comments Code Status Date Activated 02/07/2017 6:32 PM Full Code 02/06/2017 7:44 PM This code status was determined by: Patient
[2018-12-09 11:57] LABS: BASOPHILS % 0.5 % (0.0-1.0); EOSINOPHILS # (AUTO) 0.1 (0.0-0.4); EOSINOPHILS % 2.2 % (0.0-6.0); HEMATOCRIT 41.2 % (34.2-44.1); HEMOGLOBIN 14.3 g/dL (12.0-16.0); LYMPHOCYTES # (AUTO) 1.5 (1.0-3.2); LYMPHOCYTES % 25.3 % (18.0-39.1); MEAN CORPUSCULAR HEMOGLOBIN 29.9 pg (28-32); MEAN CORPUSCULAR HGB CONC 34.7 g/dL (31-35); MONOCYTES # (AUTO) 0.3 (0.2-0.8); MONOCYTES % 4.5 % (4.4-11.3); NEUTROPHILS # (AUTO) 4.1 (2.1-6.9); PLATELET COUNT 263 x10e3/uL (140-360); RED BLOOD COUNT 4.79 x10e6/uL (3.6-5.1); RED CELL DISTRIBUTION WIDTH 13.2 % (11.7-14.4)
[2018-12-09 11:59] LABS: CLARITY,URINE CLEAR (CLEAR); COLOR,URINE YELLOW (YELLOW)
[2018-12-09 12:00] LABS: BILIRUBIN,URINE NEGATIVE (NEGATIVE); KETONES,URINE NEGATIVE (NEGATIVE); LEUKOCYTE ESTERASE ,URINE NEGATIVE (NEGATIVE); NITRITE,URINE NEGATIVE (NEGATIVE); PROTEIN,URINE DIPSTICK NEGATIVE (NEGATIVE); URINE UROBILINOGEN 0.2 mg/dL (0.2 - 1)
[2018-12-09 12:07] LABS: INR 0.87; PROTHROMBIN TIME 12.6 seconds (11.9-14.5)
[2018-12-09 12:08] LABS: PARTIAL THROMBOPLASTIN TIME 29.7 seconds (23.8-35.5)
[2018-12-09 12:18] LABS: ALANINE AMINOTRANSFERASE 19 IU/L (0-55); ALBUMIN 3.9 g/dL (3.5-5.0); ALBUMIN/GLOBULIN RATIO 1.2 (0.8-2.0); ALKALINE PHOSPHATASE 141 IU/L (40-150); ANION GAP 14.9 mmol/L (8-16); BACTERIA,URINE FEW /HPF; BLOOD UREA NITROGEN 19 mg/dL (7-26); BUN/CREATININE RATIO 29 (6-25); CALCIUM 9.3 mg/dL (8.4-10.2); CARBON DIOXIDE 23 mmol/L (22-29); CHLORIDE 107 mmol/L (98-107); CREATINE KINASE 76 IU/L (29-168); CREATININE, SERUM 0.66 mg/dL (0.57-1.11); EPITHELIAL CELLS,URINE FEW /LPF; EST GLOMERULAR FILTRATION RATE > 60 ML/MIN (60-); GLUCOSE 82 mg/dL (74-118); MAGNESIUM 2.3 MG/DL (1.3-2.1); POTASSIUM 3.9 mmol/L (3.5-5.1); SODIUM 141 mmol/L (136-145)
--- NOTE | 2018-12-09 12:27 | NUR ---
PATIENT BROUGHT TO TRIAGE FOR REASSESMENT
--- NOTE | 2018-12-09 19:19 | Diagnostic Imaging Report ---
[id number] EXAMINATION: 2 view chest x-ray INDICATION: Chest pain and shortness of breath. COMPARISON: None FINDINGS: PA and lateral views TUBES and LINES: None. LUNGS: Limited by body habitus. Lungs are well inflated. There is no evidence of pneumonia or pulmonary edema. PLEURA: No pleural effusion or pneumothorax. HEART AND MEDIASTINUM: The cardiomediastinal silhouette is unremarkable. BONES AND SOFT TISSUES: No acute osseous lesion. Soft tissues are unremarkable. UPPER ABDOMEN: No free air under the diaphragm. IMPRESSION: No acute thoracic abnormality. Signed by: Dr. Elliott Lopez MD on 12/09/2018 7:16 PM
== END 2018-12-09 15:24 | disposition home or self-care (01) ==
LOC: ER 11:04
DX: R07.89 Other chest pain (principal); K21.9 Gastro-esophageal reflux disease without esophagitis; L40.9 Psoriasis, unspecified; F32.9 Major depressive disorder, single episode, unspecified; Z98.84 Bariatric surgery status
CPT/HCPCS: 36415; 71046; 80053; 81001; 82550; 82553; 83735; 84484; 85025; 85379; 85610; 85730; 93005; 99284

== ENCOUNTER 2019-02-14 09:09 | Observation (INO) | payer OTHER ==
[~2019-02-14] VITALS: Ht 172.7 cm; Wt 136.5 kg
--- OUTSIDE RECORDS SUMMARY | 2019-02-14 09:14 | XMS REPORT | Clinical Summary ---
Author Author [facility] Address Unknown Phone Unavailable Care Team Providers Care L Tacker Name Role Phone Cara Durand MD PCP [...] Not on file Results Not on fileafter 02/13/2018 Insurance Payer Benefit Subscriber ID Type Phone Address Plan / Group [facility] xxxxxxxxxxxxx [phone] [facility] [address] (Home) [place] [address] Wero Roqueelle Personal/F Self [id number] (Home) [place] [address] Advance Directives For more information, please contact: [facility] [address] [place] [address] Date Inactivated Comments Code Status Date Activated 02/07/2017 6:32 PM Full Code 02/06/2017 7:44 PM This code status was determined by: Patient
--- OUTSIDE RECORDS SUMMARY | 2019-02-14 09:14 | XMS REPORT | Clinical Summary ---
Author Author [facility] Organization [facility] Address Unknown Phone Unavailable Care Team Providers Care Asw/Asuw Tactical Air Controller Name Role Phone Cara Durand MD PCP [...] Rose Marie Patel 06/26/2018 Anesthesia Gastroenterology Event Jrared Quiñonez MD Yerramadha, Muralidhar Reddy, MD Siddiqui, Imran Alam, MD Generalized abdominal pain (Primary Dx); Microscopic hematuria 06/22/2018 Emergency General Internal Medicine - 06/27/2018 Cory Ram MD 04/27/2018 Anesthesia Gastroenterology Event Isaiah Mcfadden MD ESOPHAGOGASTRODUODENOSCOPY (EGD) 04/27/2018 Surgery Gastroenterology Song Gordon MD Teqwimuah, Remy, DO Generalized abdominal pain (Primary Dx) 04/26/2018 Emergency General Surgery - 04/27/2018 after 02/13/2018 Social History Date Tobacco Use Types Packs/Day [...] Comments CERVICAL CANCER SCREENING 1993 INFLUENZA VACCINE 06/13/2019 12/12/2017 Procedures Comments Procedure Name Priority Date/Time [...] REFLEX 2:17 PM CDT TO CULTURE after 02/13/2018 Results * Hemoglobin & hematocrit (08/22/2018 5:02 AM CDT) HGB 14.3 12.0 - 16.0 g/dL [facility] DEPARTMENT OF PATHOLOGY AND GENOMIC MEDICINE HCT 46.1 37.0 - 47.0 % [facility] DEPARTMENT OF PATHOLOGY AND GENOMIC MEDICINE Specimen Blood Performing Organization Address City/State/Zipcode Phone Number [facility] [place] [address] [place] [address] PATHOLOGY AND GENOMIC MEDICINE * CT Abdomen [...] before Otherwise unremarkable CT abdomen and pelvis [facility]-[id number] Procedure Note Hm Interface, Radiology Results Incoming [...] before Otherwise unremarkable CT abdomen and pelvis [facility]-[id number] Performing Organization Address City/State/Zipcode Phone Number [facility] [address] [place] [address] * C difficile toxin (08/19/2018 8:01 PM CDT) Clostridium difficile Positive for C. difficile [facility] DEPARTMENT OF toxin toxin (A) PATHOLOGY AND Comment: GENOMIC MEDICINE Specimen Information Specimen Source: Stool Specimen Site: Not otherwise specified Specimen Stool - Not otherwise specified Performing Organization Address City/State/Zipcode Phone Number [facility] DEPARTMENT OF [address] [place] [address] PATHOLOGY AND GENOMIC MEDICINE * Estimated GFR (08/19/2018 4:54 AM CDT) Only the most recent of 2 results within the time period is included. Estimated GFR >=90 mL/min/1.73 m2 [facility] DEPARTMENT OF Comment: PATHOLOGY AND CatergoryUnitsInte GENOMIC MEDICINE rpretation G1 >=90 Normal or high G2 60-89Mildly decreased [id number] Mildly to moderately decreased [id number] Moderately to severely decreased G4 15-29Severely decreased G5 <15Kidney failure The eGFR was calculated using the Chronic Kidney Disease Epidemiology Collaboration (CKD-EPI) equation. Interpretation is based on recommendations of the National Kidney Foundation-Kidney Disease Outcomes Quality Initiative (NKF-KDOQI) published in 2014. Specimen Plasma specimen Performing Organization Address City/[facility]/Zipcode Phone Number [facility] [place] [address] [place] [address] PATHOLOGY AND GENOMIC MEDICINE * CBC with platelet and differential (08/19/2018 4:54 AM CDT) Only the most recent of 7 results within the time period is included. WBC 6.17 4.50 - 11.00 k/uL [facility] DEPARTMENT OF PATHOLOGY AND GENOMIC MEDICINE RBC 4.58 4.20 - 5.50 m/uL [facility] DEPARTMENT OF PATHOLOGY AND GENOMIC MEDICINE HGB 12.8 12.0 - 16.0 g/dL [facility] DEPARTMENT OF PATHOLOGY AND GENOMIC MEDICINE HCT 40.3 37.0 - 47.0 % [facility] DEPARTMENT OF PATHOLOGY AND GENOMIC MEDICINE MCV 88.0 82.0 - 100.0 fL [facility] DEPARTMENT OF PATHOLOGY AND GENOMIC MEDICINE MCH 27.9 27.0 - 34.0 pg [facility] DEPARTMENT OF PATHOLOGY AND GENOMIC MEDICINE MCHC 31.8 31.0 - 37.0 g/dL [facility] DEPARTMENT OF PATHOLOGY AND GENOMIC MEDICINE RDW - SD 42.6 37.0 - 55.0 fL [facility] DEPARTMENT OF PATHOLOGY AND GENOMIC MEDICINE MPV 9.3 8.8 - 13.2 fL [facility] DEPARTMENT OF PATHOLOGY AND GENOMIC MEDICINE Platelet count 241 150 - 400 k/uL [facility] DEPARTMENT OF PATHOLOGY AND GENOMIC MEDICINE Nucleated RBC 0.00 /100 WBC [facility] DEPARTMENT OF PATHOLOGY AND GENOMIC MEDICINE Neutrophils 66.0 39.0 - 69.0 % [facility] DEPARTMENT OF PATHOLOGY AND GENOMIC MEDICINE Lymphocytes 25.1 25.0 - 45.0 % [facility] DEPARTMENT OF PATHOLOGY AND GENOMIC MEDICINE Monocytes 5.7 0.0 - 10.0 % [facility] DEPARTMENT OF PATHOLOGY AND GENOMIC MEDICINE Eosinophils 2.6 0.0 - 5.0 % [facility] DEPARTMENT OF PATHOLOGY AND GENOMIC MEDICINE Basophils 0.3 0.0 - 1.0 % [facility] OF PATHOLOGY AND GENOMIC MEDICINE Specimen Blood Performing Organization Address City/[facility] Phone Number [address] [place] [id number] PATHOLOGY [facility] * Basic metabolic panel (08/19/2018 4:54 AM CDT) Only the most recent of 2 results within the time period is included. Sodium 141 135 - 148 mEq/L [facility] DEPARTMENT OF PATHOLOGY AND GENOMIC MEDICINE Potassium 3.9 3.5 - 5.0 mEq/L [facility] DEPARTMENT OF PATHOLOGY AND GENOMIC MEDICINE Chloride 104 98 - 112 mEq/L [facility] DEPARTMENT OF PATHOLOGY AND GENOMIC MEDICINE CO2 26 24 - 31 mEq/L [facility] DEPARTMENT OF PATHOLOGY AND GENOMIC MEDICINE Anion gap 11@ANIO 7 - 15 mEq/L [facility] DEPARTMENT OF PATHOLOGY AND GENOMIC MEDICINE BUN 17 6 - 20 mg/dL [facility] DEPARTMENT OF PATHOLOGY AND GENOMIC MEDICINE Creatinine 0.60 0.50 - 0.90 mg/dL [facility] DEPARTMENT OF PATHOLOGY AND GENOMIC MEDICINE Glucose 97 65 - 99 mg/dL [facility] DEPARTMENT OF PATHOLOGY AND GENOMIC MEDICINE Calcium 9.5 8.3 - 10.2 mg/dL [facility] DEPARTMENT OF PATHOLOGY AND GENOMIC MEDICINE Specimen Plasma specimen Performing Organization Address City/[facility] Hospitalcode Phone Number [place] [address] [place] [phone] PATHOLOGY [facility] * Urinalysis screen and microscopy, with reflex to culture (08/17/2018 10:21 PM CDT) Only the most recent of 3 results within the time period is included. Specimen site Clean catch [facility] DEPARTMENT OF PATHOLOGY AND GENOMIC MEDICINE Color, UA Yellow [facility] DEPARTMENT OF PATHOLOGY AND GENOMIC MEDICINE Appearance, UA Clear [facility] DEPARTMENT OF PATHOLOGY AND GENOMIC MEDICINE Specific gravity, UA 1.030 1.001 - 1.035 [facility] DEPARTMENT OF PATHOLOGY AND GENOMIC MEDICINE pH, UA 5.0 5.0 - 8.5 [facility] DEPARTMENT OF PATHOLOGY AND GENOMIC MEDICINE Protein, UA Negative Negative [facility] DEPARTMENT OF PATHOLOGY AND GENOMIC MEDICINE Glucose, UA Negative Negative [facility] DEPARTMENT OF PATHOLOGY AND GENOMIC MEDICINE Ketones, UA Negative Negative [facility] DEPARTMENT OF PATHOLOGY AND GENOMIC MEDICINE Bilirubin, UA Negative Negative [facility] DEPARTMENT OF PATHOLOGY AND GENOMIC MEDICINE Blood, UA Negative Negative [facility] DEPARTMENT OF PATHOLOGY AND GENOMIC MEDICINE Nitrite, UA Negative Negative [facility] DEPARTMENT OF PATHOLOGY AND GENOMIC MEDICINE Urobilinogen, UA Negative <2.0 [facility] DEPARTMENT OF PATHOLOGY AND GENOMIC MEDICINE Leukocyte esterase, UA Negative Negative [facility] DEPARTMENT OF PATHOLOGY AND GENOMIC MEDICINE Epithelial cells, UA Many /HPF [facility] DEPARTMENT OF PATHOLOGY AND GENOMIC MEDICINE WBC, UA 0-5 0 - 4 /HPF [facility] DEPARTMENT OF PATHOLOGY AND GENOMIC MEDICINE RBC, UA 0-5 0 - 5 /HPF [facility] DEPARTMENT OF PATHOLOGY AND GENOMIC MEDICINE Bacteria, UA None seen None seen [facility] DEPARTMENT OF PATHOLOGY AND GENOMIC MEDICINE Yeast, UA None seen [facility] DEPARTMENT OF PATHOLOGY AND GENOMIC MEDICINE Yeast with pseudohyphae, None seen [facility] DEPARTMENT OF UA PATHOLOGY AND GENOMIC MEDICINE Specimen Urine Performing Organization Address [facility] Phone Number [address] [place] [address] PATHOLOGY AND GENOMIC MEDICINE * hCG qualitative, urine screen (08/17/2018 10:21 PM CDT) hCG qualitative, urine Negative Negative [facility] DEPARTMENT OF Comment: PATHOLOGY AND The manufacturers stated GENOMIC MEDICINE sensitivity of HcG test for serum is >/=10 mIU/ml and urine is >/=20mIU/ml. Specimen Urine Performing Organization Address [facility] Hospitalcode Phone Number [address] [place] [address] PATHOLOGY AND [facility] * Urine culture (08/17/2018 10:21 PM CDT) Urine culture SEE COMMENTComment: [facility] DEPARTMENT OF Bacteriuria screen negative. PATHOLOGY AND GENOMIC MEDICINE Specimen Urine Performing Organization Address [facility] Hospitalcode Phone Number [address] [place] [address] PATHOLOGY AND [facility] * CT Abdomen Pelvis W Contrast [...] acute abnormality identified in abdomen or pelvis. [facility]-[id number] Procedure Note Interface, Radiology Results Incoming - [...] acute abnormality identified in abdomen or pelvis. [id number] Performing Organization Address City/State/Zipcode Phone Number [facility] [address] [place] [address] * Lipase level (08/17/2018 8:15 PM CDT) Only the most recent of 4 results within the time period is included. Lipase 41 13 - 60 U/L [facility] DEPARTMENT OF PATHOLOGY AND GENOMIC MEDICINE Specimen Plasma specimen Performing Organization Address City/State/Zipcode Phone Number [facility] [address] [place] [address] PATHOLOGY AND GENOMIC MEDICINE * Comprehensive metabolic panel (08/17/2018 8:15 PM CDT) Only the most recent of 5 results within the time period is included. Sodium 144 135 - 148 mEq/L [facility] DEPARTMENT OF PATHOLOGY AND GENOMIC MEDICINE Potassium 4.3 3.5 - 5.0 mEq/L [facility] DEPARTMENT OF PATHOLOGY AND GENOMIC MEDICINE Chloride 104 98 - 112 mEq/L [facility] DEPARTMENT OF PATHOLOGY AND GENOMIC MEDICINE CO2 28 24 - 31 mEq/L [facility] DEPARTMENT OF PATHOLOGY AND GENOMIC MEDICINE Anion gap 12@ANIO 7 - 15 mEq/L [facility] DEPARTMENT OF PATHOLOGY AND GENOMIC MEDICINE BUN 18 6 - 20 mg/dL [facility] DEPARTMENT OF PATHOLOGY AND GENOMIC MEDICINE Creatinine 0.60 0.50 - 0.90 mg/dL [facility] DEPARTMENT OF PATHOLOGY AND GENOMIC MEDICINE Glucose 96 65 - 99 mg/dL [facility] DEPARTMENT OF PATHOLOGY AND GENOMIC MEDICINE Calcium 10.6 (H) 8.3 - 10.2 mg/dL [facility] DEPARTMENT OF PATHOLOGY AND GENOMIC MEDICINE Protein 8.0 6.3 - 8.3 g/dL [facility] DEPARTMENT OF Comment: PATHOLOGY AND Neche GENOMIC MEDICINE 4.6-7.0 g/dL 1 week 4.4-7.6 g/dL 7 months-1year 5.1-7.3 g/dL 1-2 years5.6-7 .5 g/dL >3 years6.0-8 .0 g/dL 18-150 6.3-8.3 g/dL Albumin 4.5 3.5 - 5.0 g/dL [facility] DEPARTMENT OF PATHOLOGY AND GENOMIC MEDICINE A/G ratio 1.3 0.7 - 3.8 [facility] DEPARTMENT OF PATHOLOGY AND GENOMIC MEDICINE Alkaline phosphatase 147 (H) 35 - 104 U/L [facility] DEPARTMENT OF PATHOLOGY AND GENOMIC MEDICINE AST 25 10 - 35 U/L [facility] DEPARTMENT OF PATHOLOGY AND GENOMIC MEDICINE ALT 23 5 - 50 U/L [facility] DEPARTMENT OF PATHOLOGY AND GENOMIC MEDICINE Total bilirubin 0.2 0.0 - 1.2 mg/dL [facility] DEPARTMENT OF PATHOLOGY AND GENOMIC MEDICINE Specimen Plasma specimen Performing Organization Address City/[facility]/Zipcode Phone Number [facility] [address] [place] [address] PATHOLOGY AND GENOMIC MEDICINE * Surgical pathology request (06/26/2018 9:51 AM CDT) Only the most recent of 2 results within the time period is included. [facility] DEPARTMENT OF PATHOLOGY AND GENOMIC MEDICINE Surgical pathology report See link below for PDF Lab [facility] DEPARTMENT OF Report PATHOLOGY AND GENOMIC MEDICINE Result status This is Final Report to [facility] DEPARTMENT OF [id number] PATHOLOGY AND GENOMIC MEDICINE Performing Organization Address [facility]code Phone Number [place] [address] [place] [address] PATHOLOGY AND GENOMIC MEDICINE * NM Hepatobiliary W Pharm (HIDA Scan w Pharm) (06/25/2018 3:53 PM CDT) Narrative Performed At PROCEDURE: NM HEPATOBILIARY W PHARM (HIDA SCAN W PHARM) [facility] INDICATION: RUQ paincholecystitis suspected COMPARISON: Gallbladder ultrasound 06/22/2018 TECHNIQUE: The patient was injected with 6 mCi of [id number] and dynamic images of the abdomen were [...] bile duct obstruction. 2.Normal gallbladder ejection fraction. [facility]-[id number] Procedure Note [facility], Radiology Results Incoming - 06/25/2018 4:22 PM CDT PROCEDURE: NM HEPATOBILIARY W PHARM (HIDA SCAN W PHARM) INDICATION: RUQ pain cholecystitis suspected COMPARISON: Gallbladder ultrasound 06/22/2018 TECHNIQUE: The patient was injected with 6 mCi of [id number] and dynamic images of the abdomen were [...] duct obstruction. 2. Normal gallbladder ejection fraction. [facility]-[id number] Performing Organization Address [facility]/Zipcode Phone Number [facility] [address] [place] [address] * Estimated GFR (06/25/2018 9:25 AM CDT) Only the most recent of 5 results within the time period is included. GFR Non Af Amer >90 mL/min/1.73 m2 [facility] DEPARTMENT OF PATHOLOGY AND GENOMIC MEDICINE GFR Af Amer >90 mL/min/1.73 m2 [facility] DEPARTMENT OF Comment: PATHOLOGY AND Chronic kidney [...] Americans. Specimen Plasma specimen Performing Organization Address [facility]code Phone Number [place] [phone] [place] [address] PATHOLOGY AND GENOMIC MEDICINE * ECG 12 [...] [facility] MUSE EKG impression Normal sinus rhythm-Low [facility] MUSE voltage QRS-Inferior infarct (cited on or before 30-MAR-2016)-Cannot rule out Anterior infarct (cited on or before 12-JUL-2007)-Abnormal ECG-In automated comparison with ECG of 12-JUN-2017 16:08,-Questionable change in initial forces of Inferior leads- Performing Organization Address [facility] Hospitalcoar Phone Number [facility] [address] [place] [address] * US Gallbladder (06/22/2018 11:06 PM CDT) Narrative Performed At EXAMINATION:US GALLBLADDER [facility] CLINICAL HISTORY: Right upper quadrant pain COMPARISON:None. FINDINGS: Gallbladder: The gallbladder is without evidence of calculi. The gallbladder wall is not thickened and there is no pericholecystic fluid. CBD: 4 mm Portal vein: The portal vein demonstrates normal hepatopedal flow. Liver: The visualized portions of liver are unremarkable. IMPRESSION: Normal gallbladder ultrasound examination. [id number] Procedure Note Hm Interface, Radiology Results Incoming [...] are unremarkable. IMPRESSION: Normal gallbladder ultrasound examination. [facility]-[id number] Performing Organization Address [facility] Hospital[facility]ar Phone Number [facility] [address] [place] [address] * ECG ED Preliminary Interpretation - NOT AN ORDER (06/22/2018 10:43 PM CDT) Narrative Performed At Jarred Quiñonez MD 06/23/20183:13 PM ECG ED Preliminary Interpretation - Not an Order Performed by: SHAJI DWYER Authorized by: JARRED QUIÑONEZ ECG reviewed by ED Physician in the absence of a solar installation manager: yes Previous ECG: Previous ECG:Compared to current [...] CDT) PTT 28.3 23.0 - 36.0 sec [facility] DEPARTMENT OF Comment: PATHOLOGY AND PTT therapeutic range for GENOMIC MEDICINE unfractionated heparin is 61.0-112.0 seconds which corresponds to Anti-Xa 0.3-0.7 U/ml. Specimen Blood Performing Organization Address City/[facility]/Zipcode Phone Number [facility] [place] [place] [address] [place] [address] PATHOLOGY AND GENOMIC MEDICINE * Prothrombin time with INR (06/22/2018 10:30 PM CDT) Prothrombin time 13.2 12.0 - 15.0 sec [facility] DEPARTMENT OF PATHOLOGY AND GENOMIC MEDICINE INR 1.0 [facility] DEPARTMENT OF Comment: PATHOLOGY AND The International Normalized GENOMIC MEDICINE Ratio (INR) is a therapeutic monitoring tool for patients who are stable on oral anticoagulant therapy. An INR of 2.0-3.0 is suggested for deep vein thrombosis/pulmonary embolism. Specimen Blood Performing Organization Address [facility] Hospitalcoar Phone Number [facility] [place] [address] [place] [address] PATHOLOGY AND GENOMIC MEDICINE * [place] Upper [...] visualization. IMPRESSION: No significant finding is identified [id number] Procedure Note Interface, Radiology Results Incoming - [...] visualization. IMPRESSION: No significant finding is identified [facility]-[id number] Performing Organization Address City/State/Zipcode Phone Number [facility] [address] [place] [address] * CT Abdomen Pelvis Wo Contrast (04/26/2018 [...] uropathy. Mild hepatitic steatosis. [facility]able exam [facility]. [id number] Procedure Note Hm Interface, Radiology Results Incoming [...] uropathy. Mild hepatitic steatosis. Unremarkable exam otherwise. [id number] Performing Organization Address City/State/Zipcode Phone Number [facility] [address] [place] [address] * Occult blood, stool (04/26/2018 5:00 PM CDT) Occult blood, stool Negative for occult blood. [facility] DEPARTMENT OF Comment: PATHOLOGY AND Specimen Information GENOMIC MEDICINE Specimen Source: Stool Specimen Site: Nonpreserved Specimen Stool - Nonpreserved Performing Organization Address City/State/Zipcode Phone Number [facility] DEPARTMENT OF [address] [place] [address] [place] [address] PATHOLOGY AND GENOMIC MEDICINE after 02/13/2018 Insurance Payer Benefit Subscriber ID Type Phone Address Plan / Group [employer] [facility] xxxxxxxxxxxxx Exchange EXCH[facility] Advance Directives Patient has advance care planning documents on file. For more information, jake lizarraga contact: Zachariah Loera [address] [place] [address]
[2019-02-14] MEDS ORDERED: ONDANSETRON HCL INJ 2MG/ML 2ML 2 MG/ML VIAL IV STA (10:00)
[2019-02-14] MEDS ORDERED: SODIUM CHLORIDE 0.9% 1000ML 1,000 ML IV SCH (10:00)
[2019-02-14] MEDS ORDERED: MORPHINE SULFATE INJ 4 MG/ML INJ 1ML IV STA (11:37)
--- NOTE | 2019-02-14 12:14 | Diagnostic Imaging Report ---
EXAM: CT ABDOMEN AND PELVIS with IV CONTRAST DATE: 02/14/2019 Time stamp on Exam: 10:48 AM INDICATION: Left lower quadrant pain and rectal bleeding COMPARISON: Abdominal and pelvic CT dated 07/30/2018 TECHNIQUE: The abdomen and pelvis were scanned using a multidetector helical scanner. Coronal and sagittal reformations were obtained. Routine protocol performed. Technique modification to maintain the lowest dose to the patient was accomplished. IV Contrast: 100 cc of Isovue-300 Oral Contrast: None Radiation Dose: Total DLP 814.26 mGy*cm Estimated effective dose: DLP x 0.015 x size factor FINDINGS: LOWER THORAX: No consolidations LIVER: No masses BILIARY: The gallbladder is unremarkable. No ductal dilatation. SPLEEN: No masses PANCREAS: No masses ADRENALS: No nodules KIDNEYS: Symmetric perfusion. No enhancing masses. No hydronephrosis. Stable left upper pole renal cyst. GI TRACT: No distention, wall thickening or evidence of obstruction. There is a gastric lap band and the reservoir present. Postoperative changes of a sigmoid bowel resection. VESSELS: Unremarkable PERITONEUM/RETROPERITONEUM: No free air or fluid LYMPH NODES: No lymphadenopathy REPRODUCTIVE ORGANS: Unremarkable BLADDER: Unremarkable SOFT TISSUES: Unremarkable BONES: No suspicious bone lesions. IMPRESSION: No acute abnormality within the abdomen or pelvis. No obvious findings to explain rectal bleeding. Signed by: Dr. Anshu Forbes DO on 02/14/2019 12:11 PM
[2019-02-14] MEDS ORDERED: LEVOFLOXACIN 750MG/D5W 150ML 150 ML IV SCH (12:30)
--- OUTSIDE RECORDS SUMMARY | 2019-02-14 12:44 | XMS REPORT | Clinical Summary ---
Author Author [employer] Organization [employer] Address Unknown Phone Unavailable Care Team Providers Care Waistline Joiner Overlock Name Role Phone Cara Durand MD PCP [...] 06/22/2018 Emergency General Internal Medicine - 06/27/2018 Croy Ram MD 04/27/2018 Anesthesia Gastroenterology Event Isaiah [...] CDT) HGB 14.3 12.0 - 16.0 g/dL [facility] DEPARTMENT OF PATHOLOGY AND GENOMIC MEDICINE HCT 46.1 37.0 - 47.0 % [facility] DEPARTMENT OF PATHOLOGY AND GENOMIC MEDICINE Specimen Blood Performing Organization Address City/State/Zipcode Phone Number [facility] [place] [address] [place] [address] PATHOLOGY AND GENOMIC MEDICINE * CT Abdomen [...] before Otherwise unremarkable CT abdomen and pelvis [facility]-[id number] Procedure Note Hm Interface, Radiology Results Incoming [...] before Otherwise unremarkable CT abdomen and pelvis [facility]-[id number] Performing Organization Address City/State/Zipcode Phone Number JE[facility] [address] [place] [address] * C difficile toxin (08/19/2018 8:01 PM CDT) Clostridium difficile Positive for C. difficile [facility] DEPARTMENT OF toxin toxin (A) PATHOLOGY AND Comment: GENOMIC MEDICINE Specimen Information Specimen Source: Stool Specimen Site: Not otherwise specified Specimen Stool - Not otherwise specified Performing Organization Address City/State/Zipcode Phone Number [facility] DEPARTMENT OF [address] [place] [address] PATHOLOGY AND GENOMIC MEDICINE * Estimated GFR (08/19/2018 4:54 AM CDT) Only the most recent of 2 results within the time period is included. Estimated GFR >=90 mL/min/1.73 m2 [facility] DEPARTMENT OF Comment: PATHOLOGY AND [employer] GENOMIC MEDICINE rpretation G1 >=90 Normal or high G2 60-89Mildly decreased [id number] Mildly to moderately decreased [id number] Moderately to severely decreased G4 15-29Severely decreased G5 <15Kidney failure The eGFR was calculated using the Chronic Kidney Disease Epidemiology Collaboration (CKD-EPI) equation. Interpretation is based on recommendations of the National Kidney Foundation-Kidney Disease Outcomes Quality Initiative (NKF-KDOQI) published in 2014. Specimen Plasma specimen Performing Organization Address City/[facility]/Zipcode Phone Number [facility] [place] [place] [address] [place] [address] PATHOLOGY AND GENOMIC MEDICINE * CBC with platelet and differential (08/19/2018 4:54 AM CDT) Only the most recent of 7 results within the time period is included. WBC 6.17 4.50 - 11.00 k/uL [facility] DEPARTMENT OF PATHOLOGY AND GENOMIC MEDICINE RBC 4.58 4.20 - 5.50 m/uL [facility] DEPARTMENT OF PATHOLOGY AND GENOMIC MEDICINE HGB 12.8 12.0 - 16.0 g/dL [facility] DEPARTMENT OF PATHOLOGY AND GENOMIC MEDICINE HCT 40.3 37.0 - 47.0 % [facility] DEPARTMENT OF PATHOLOGY AND GENOMIC MEDICINE MCV 88.0 82.0 - 100.0 fL [facility] DEPARTMENT OF PATHOLOGY AND GENOMIC MEDICINE MCH 27.9 27.0 - 34.0 pg [facility] DEPARTMENT OF PATHOLOGY AND GENOMIC MEDICINE MCHC 31.8 31.0 - 37.0 g/dL [facility] DEPARTMENT OF PATHOLOGY AND GENOMIC MEDICINE RDW - SD 42.6 37.0 - 55.0 fL [facility] DEPARTMENT OF PATHOLOGY AND GENOMIC MEDICINE MPV 9.3 8.8 - 13.2 fL [facility] DEPARTMENT OF PATHOLOGY AND GENOMIC MEDICINE Platelet count 241 150 - 400 k/uL [facility] DEPARTMENT OF PATHOLOGY AND GENOMIC MEDICINE Nucleated RBC 0.00 /100 WBC [facility] DEPARTMENT OF PATHOLOGY AND GENOMIC MEDICINE Neutrophils 66.0 39.0 - 69.0 % [facility] DEPARTMENT OF PATHOLOGY AND GENOMIC MEDICINE Lymphocytes 25.1 25.0 - 45.0 % [facility] DEPARTMENT OF PATHOLOGY AND GENOMIC MEDICINE Monocytes 5.7 0.0 - 10.0 % [facility] DEPARTMENT OF PATHOLOGY AND GENOMIC MEDICINE Eosinophils 2.6 0.0 - 5.0 % [facility] DEPARTMENT OF PATHOLOGY AND GENOMIC MEDICINE Basophils 0.3 0.0 - 1.0 % [facility] OF PATHOLOGY AND GENOMIC MEDICINE Specimen Blood Performing Organization Address City/[facility] Phone Number [address] [place] [phone] PATHOLOGY [facility] * Basic metabolic panel (08/19/2018 4:54 AM CDT) Only the most recent of 2 results within the time period is included. Sodium 141 135 - 148 mEq/L [facility] DEPARTMENT OF PATHOLOGY AND GENOMIC MEDICINE Potassium 3.9 3.5 - 5.0 mEq/L [facility] DEPARTMENT OF PATHOLOGY AND GENOMIC MEDICINE Chloride 104 98 - 112 mEq/L [facility] DEPARTMENT OF PATHOLOGY AND GENOMIC MEDICINE CO2 26 24 - 31 mEq/L [facility] DEPARTMENT OF PATHOLOGY AND GENOMIC MEDICINE Anion gap 11@ANIO 7 - 15 mEq/L [facility] DEPARTMENT OF PATHOLOGY AND GENOMIC MEDICINE BUN 17 6 - 20 mg/dL [facility] DEPARTMENT OF PATHOLOGY AND GENOMIC MEDICINE Creatinine 0.60 0.50 - 0.90 mg/dL [facility] DEPARTMENT OF PATHOLOGY AND GENOMIC MEDICINE Glucose 97 65 - 99 mg/dL [facility] DEPARTMENT OF PATHOLOGY AND GENOMIC MEDICINE Calcium 9.5 8.3 - 10.2 mg/dL [facility] DEPARTMENT OF PATHOLOGY AND GENOMIC MEDICINE Specimen Plasma specimen Performing Organization Address City/[facility] Cent[facility]ode Phone Number [place] [address] [place] [phone] PATHOLOGY [facility] * Urinalysis screen and microscopy, with reflex to culture (08/17/2018 10:21 PM CDT) Only the most recent of 3 results within the time period is included. Specimen site Clean catch [facility] DEPARTMENT OF PATHOLOGY AND GENOMIC MEDICINE Color, UA Yellow [facility] DEPARTMENT OF PATHOLOGY AND GENOMIC MEDICINE Appearance, UA Clear [facility] DEPARTMENT OF PATHOLOGY AND GENOMIC MEDICINE Specific gravity, UA 1.030 1.001 - 1.035 [facility] DEPARTMENT OF PATHOLOGY AND GENOMIC MEDICINE pH, UA 5.0 5.0 - 8.5 [facility] DEPARTMENT OF PATHOLOGY AND GENOMIC MEDICINE Protein, UA Negative Negative [facility] DEPARTMENT OF PATHOLOGY AND GENOMIC MEDICINE Glucose, UA Negative Negative [facility] DEPARTMENT OF PATHOLOGY AND GENOMIC MEDICINE Ketones, UA Negative Negative [facility] DEPARTMENT OF PATHOLOGY AND GENOMIC MEDICINE Bilirubin, UA Negative Negative [facility] DEPARTMENT OF PATHOLOGY AND GENOMIC MEDICINE Blood, UA Negative Negative [facility] DEPARTMENT OF PATHOLOGY AND GENOMIC MEDICINE Nitrite, UA Negative Negative [facility] DEPARTMENT OF PATHOLOGY AND GENOMIC MEDICINE Urobilinogen, UA Negative <2.0 [facility] DEPARTMENT OF PATHOLOGY AND GENOMIC MEDICINE Leukocyte esterase, UA Negative Negative [facility] DEPARTMENT OF PATHOLOGY AND GENOMIC MEDICINE Epithelial cells, UA Many /HPF [facility] DEPARTMENT OF PATHOLOGY AND GENOMIC MEDICINE WBC, UA 0-5 0 - 4 /HPF [facility] DEPARTMENT OF PATHOLOGY AND GENOMIC MEDICINE RBC, UA 0-5 0 - 5 /HPF [facility] DEPARTMENT OF PATHOLOGY AND GENOMIC MEDICINE Bacteria, UA None seen None seen [facility] DEPARTMENT OF PATHOLOGY AND GENOMIC MEDICINE Yeast, UA None seen [facility] DEPARTMENT OF PATHOLOGY AND GENOMIC MEDICINE Yeast with pseudohyphae, None seen [facility] DEPARTMENT OF UA PATHOLOGY AND GENOMIC MEDICINE Specimen Urine Performing Organization Address [facility] Centercode Phone Number [address] [place] [address] PATHOLOGY AND GENOMIC MEDICINE * hCG qualitative, urine screen (08/17/2018 10:21 PM CDT) hCG qualitative, urine Negative Negative [facility] DEPARTMENT OF Comment: PATHOLOGY AND The manufacturers stated GENOMIC MEDICINE sensitivity of HcG test for serum is >/=10 mIU/ml and urine is >/=20mIU/ml. Specimen Urine Performing Organization Address [facility] Centercode Phone Number [address] [place] [address] PATHOLOGY AND [facility] MEDICINE * Urine culture (08/17/2018 10:21 PM CDT) Urine culture SEE COMMENTComment: [facility] DEPARTMENT OF Bacteriuria screen negative. PATHOLOGY AND GENOMIC MEDICINE Specimen Urine Performing Organization Address [facility] Centercode Phone Number [address] [place] [address] PATHOLOGY AND [facility] MEDICINE * CT Abdomen Pelvis W Contrast [...] acute abnormality identified in abdomen or pelvis. [facility]-[id number] Procedure Note Interface, Radiology Results Incoming - [...] acute abnormality identified in abdomen or pelvis. [facility]-[id number] Performing Organization Address City/State/Zipcode Phone Number [facility] [address] [place] [address] * Lipase level (08/17/2018 8:15 PM CDT) Only the most recent of 4 results within the time period is included. Lipase 41 13 - 60 U/L [facility] DEPARTMENT OF PATHOLOGY AND GENOMIC MEDICINE Specimen Plasma specimen Performing Organization Address City/State/Zipcode Phone Number [facility] [address] [place] [address] PATHOLOGY AND GENOMIC MEDICINE * Comprehensive metabolic panel (08/17/2018 8:15 PM CDT) Only the most recent of 5 results within the time period is included. Sodium 144 135 - 148 mEq/L [facility] DEPARTMENT OF PATHOLOGY AND GENOMIC MEDICINE Potassium 4.3 3.5 - 5.0 mEq/L [facility] DEPARTMENT OF PATHOLOGY AND GENOMIC MEDICINE Chloride 104 98 - 112 mEq/L [facility] DEPARTMENT OF PATHOLOGY AND GENOMIC MEDICINE CO2 28 24 - 31 mEq/L [facility] DEPARTMENT OF PATHOLOGY AND GENOMIC MEDICINE Anion gap 12@ANIO 7 - 15 mEq/L [facility] DEPARTMENT OF PATHOLOGY AND GENOMIC MEDICINE BUN 18 6 - 20 mg/dL [facility] DEPARTMENT OF PATHOLOGY AND GENOMIC MEDICINE Creatinine 0.60 0.50 - 0.90 mg/dL [facility] DEPARTMENT OF PATHOLOGY AND GENOMIC MEDICINE Glucose 96 65 - 99 mg/dL [facility] DEPARTMENT OF PATHOLOGY AND GENOMIC MEDICINE Calcium 10.6 (H) 8.3 - 10.2 mg/dL [facility] DEPARTMENT OF PATHOLOGY AND GENOMIC MEDICINE Protein 8.0 6.3 - 8.3 g/dL [facility] DEPARTMENT OF Comment: PATHOLOGY AND [place] GENOMIC MEDICINE 4.6-7.0 g/dL 1 week 4.4-7.6 g/dL 7 months-1year 5.1-7.3 g/dL 1-2 years5.6-7 .5 g/dL >3 years6.0-8 .0 g/dL 18-150 6.3-8.3 g/dL Albumin 4.5 3.5 - 5.0 g/dL [facility] DEPARTMENT OF PATHOLOGY AND GENOMIC MEDICINE A/G ratio 1.3 0.7 - 3.8 [facility] DEPARTMENT OF PATHOLOGY AND GENOMIC MEDICINE Alkaline phosphatase 147 (H) 35 - 104 U/L [facility] DEPARTMENT OF PATHOLOGY AND GENOMIC MEDICINE AST 25 10 - 35 U/L [facility] DEPARTMENT OF PATHOLOGY AND GENOMIC MEDICINE ALT 23 5 - 50 U/L [facility] DEPARTMENT OF PATHOLOGY AND GENOMIC MEDICINE Total bilirubin 0.2 0.0 - 1.2 mg/dL [facility] DEPARTMENT OF PATHOLOGY AND GENOMIC MEDICINE Specimen Plasma specimen Performing Organization Address City/[facility]/Zipcode Phone Number [facility] [address] [place] [address] PATHOLOGY AND GENOMIC MEDICINE * Surgical pathology request (06/26/2018 9:51 AM CDT) Only the most recent of 2 results within the time period is included. [facility] DEPARTMENT OF PATHOLOGY AND GENOMIC MEDICINE Surgical pathology report See link below for PDF Lab [facility] DEPARTMENT OF Report PATHOLOGY AND GENOMIC MEDICINE Result status This is Final Report to [facility] DEPARTMENT OF [id number] PATHOLOGY AND GENOMIC MEDICINE Performing Organization Address [facility] Centercode Phone Number [place] [address] [place] [address] PATHOLOGY AND GENOMIC MEDICINE * NM Hepatobiliary W Pharm (HIDA Scan w Pharm) (06/25/2018 3:53 PM CDT) Narrative Performed At PROCEDURE: NM HEPATOBILIARY W PHARM (HIDA SCAN W PHARM) [facility] INDICATION: RUQ paincholecystitis suspected COMPARISON: Gallbladder ultrasound 06/22/2018 TECHNIQUE: The patient was injected with 6 mCi of [id number] and dynamic images of the abdomen were [...] bile duct obstruction. 2.Normal gallbladder ejection fraction. [facility]-[id number] Procedure Note [facility], Radiology Results Incoming - 06/25/2018 4:22 PM CDT PROCEDURE: NM HEPATOBILIARY W PHARM (HIDA SCAN W PHARM) INDICATION: RUQ pain cholecystitis suspected COMPARISON: Gallbladder ultrasound 06/22/2018 TECHNIQUE: The patient was injected with 6 mCi of [id number] and dynamic images of the abdomen were [...] duct obstruction. 2. Normal gallbladder ejection fraction. [facility]-[id number] Performing Organization Address [facility]/Zipcode Phone Number [facility] [address] [place] [address] * Estimated GFR (06/25/2018 9:25 AM CDT) Only the most recent of 5 results within the time period is included. GFR Non Af Amer >90 mL/min/1.73 m2 [facility] DEPARTMENT OF PATHOLOGY AND GENOMIC MEDICINE GFR Af Amer >90 mL/min/1.73 m2 [facility] DEPARTMENT OF Comment: PATHOLOGY AND Chronic [...] Americans. Specimen Plasma specimen Performing Organization Address [facility] Centercode Phone Number [place] [phone] [place] [address] PATHOLOGY AND GENOMIC MEDICINE * ECG 12 lead (06/23/2018 1:50 AM CDT) Ventricular rate 75 [facility] Atrial rate 75 [facility] MO interval 154 [facility] QRSD interval 78 [facility] QT interval 398 [facility] QTC interval 444 [facility] P axis 1 30 [facility] QRS axis 1 15 [facility] T wave axis 13 [facility] EKG impression Normal sinus rhythm-Low [facility] MUSE voltage QRS-Inferior infarct (cited on or before 30-MAR-2016)-Cannot rule out Anterior infarct (cited on or before 12-JUL-2007)-Abnormal ECG-In automated comparison with ECG of 12-JUN-2017 16:08,-Questionable change in initial forces of Inferior leads- Performing Organization Address [facility] Centercosd Phone Number [facility] [address] [place] [address] * US Gallbladder (06/22/2018 11:06 PM CDT) Narrative Performed At EXAMINATION:US [facility]ALLBLADDER [facility] CLINICAL HISTORY: Right upper quadrant pain COMPARISON:None. FINDINGS: Gallbladder: The gallbladder is without evidence of calculi. The gallbladder wall is not thickened and there is no pericholecystic fluid. CBD: 4 mm Portal vein: The portal vein demonstrates normal hepatopedal flow. Liver: The visualized portions of liver are unremarkable. IMPRESSION: Normal gallbladder ultrasound examination. [id number] Procedure Note Hm Interface, Radiology Results Incoming [...] are unremarkable. IMPRESSION: Normal gallbladder ultrasound examination. [facility]-[id number] Performing Organization Address [facility]osd Phone Number [facility] [address] [place] [address] * ECG ED Preliminary Interpretation - NOT AN ORDER (06/22/2018 10:43 PM CDT) Narrative Performed At Jarred Quiñonez MD 06/23/20183:13 PM ECG ED Preliminary Interpretation - Not an Order Performed by: SHAJI DWYER Authorized by: JARRED QUIÑONEZ ECG reviewed by ED Physician in the absence of a general internist and physician leader: yes Previous ECG: Previous ECG:Compared to current [...] CDT) PTT 28.3 23.0 - 36.0 sec [facility] DEPARTMENT OF Comment: PATHOLOGY AND PTT therapeutic range for GENOMIC MEDICINE unfractionated heparin is 61.0-112.0 seconds which corresponds to Anti-Xa 0.3-0.7 U/ml. Specimen Blood Performing Organization Address City/[facility]/Zipcode Phone Number [facility] [place] [address] [place] [address] PATHOLOGY AND GENOMIC MEDICINE * Prothrombin time with INR (06/22/2018 10:30 PM CDT) Prothrombin time 13.2 12.0 - 15.0 sec [facility] DEPARTMENT OF PATHOLOGY AND GENOMIC MEDICINE INR 1.0 [facility] DEPARTMENT OF Comment: PATHOLOGY AND The International Normalized GENOMIC MEDICINE Ratio (INR) is a therapeutic monitoring tool for patients who are stable on oral anticoagulant therapy. An INR of 2.0-3.0 is suggested for deep vein thrombosis/pulmonary embolism. Specimen Blood Performing Organization Address [facility]osd Phone Number [facility] [place] [address] [place] [address] PATHOLOGY AND GENOMIC MEDICINE * [place] Upper [...] visualization. IMPRESSION: No significant finding is identified [id number] Procedure Note Interface, Radiology Results Incoming - [...] visualization. IMPRESSION: No significant finding is identified [facility]-[id number] Performing Organization Address City/State/Zipcode Phone Number [facility] [address] [place] [address] * CT Abdomen Pelvis Wo Contrast (04/26/2018 [...] uropathy. Mild hepatitic steatosis. Unremarkable exam otherwise. [id number] Procedure Note Hm Interface, Radiology Results Incoming [...] uropathy. Mild hepatitic steatosis. Unremarkable exam otherwise. [id number] Performing Organization Address City/State/Zipcode Phone Number [facility] [address] [place] [address] * Occult blood, stool (04/26/2018 5:00 PM CDT) Occult blood, stool Negative for occult blood. [facility] DEPARTMENT OF Comment: PATHOLOGY AND Specimen Information GENOMIC MEDICINE Specimen Source: Stool Specimen Site: Nonpreserved Specimen Stool - Nonpreserved Performing Organization Address City/State/Zipcode Phone Number [facility] DEPARTMENT OF [address] [place] [address] [place] [address] PATHOLOGY AND GENOMIC MEDICINE after 02/13/2018 Insurance Payer Benefit Subscriber ID Type Phone Address Plan / Group [email or web address] xxxxxxxxxxxxx Exchange EXCHANGE [facility] Advance Directives Patient has advance care planning documents on file. For more information, jake lizarraga contact: Zachariah Loera [address] [place] [address]
--- OUTSIDE RECORDS SUMMARY | 2019-02-14 12:44 | XMS REPORT | Clinical Summary ---
Author Author [facility] Address Unknown Phone Unavailable Care Team Providers Care Process Engineer Name Role Phone Cara Durand MD PCP [...] ID Type Phone Address Plan / Group [facility] xxxxxxxxxxxxx [phone] [place] (Home) [place] [address] Wero Roqueelle Personal/F Self [id number] [place] (Home) [place] [address] Advance Directives For more information, please contact: [facility] [address] [place] [address] Date Inactivated Comments Code Status Date Activated 02/07/2017 6:32 PM Full Code 02/06/2017 7:44 PM This code status was determined by: Patient
[2019-02-14] MEDS ORDERED: MORPHINE SULFATE 2 MG/ML SYR 1ML IV PRN (12:45)
[2019-02-14] MEDS ORDERED: ONDANSETRON HCL INJ 2MG/ML 2ML 2 MG/ML VIAL IV PRN (12:45)
--- NOTE | 2019-02-14 13:30 | NUR ---
[facility] CALLED FOR TRANSPORT. ETA 30 MINUTES PT AND FAMILY AWARE OF POC
--- NOTE | 2019-02-14 13:40 | NUR ---
ATTEMPTED TO CALL REPORT, RN UNAVAILABLE PER CHARGE NURSE.
--- NOTE | 2019-02-14 14:00 | NUR ---
ATTEMPTED TO CALL REPORT WAS TOLD RN WOULD CALL BACK.
[2019-02-14] MEDS: MORPHINE SULFATE INJ 4 MG/ML INJ 1ML IV PRN (15:04)
[2019-02-14] MEDS: SODIUM CHLORIDE 0.9% 1000ML 1,000 ML IV SCH (16:29)
[2019-02-14] MEDS: METRONIDAZOLE 500MG/NS 100ML 100 ML IV SCH ×2 (16:29→21:11)
[2019-02-14 17:01] VITALS: BP 121/54
[2019-02-14 17:05] VITALS: BP 121/54
[2019-02-14 17:07] VITALS: BP 121/54
[2019-02-14 20:00] VITALS: BP 133/70
[2019-02-14 21:21] VITALS: BP 133/70
[2019-02-15 00:21] VITALS: BP 131/68
[2019-02-15] MEDS: SODIUM CHLORIDE 0.9% 1000ML 1,000 ML IV SCH ×2 (01:53→04:30)
[2019-02-15] MEDS: MORPHINE SULFATE INJ 4 MG/ML INJ 1ML IV PRN (01:53)
[2019-02-15 05:03] VITALS: BP 115/68
[2019-02-15] MEDS: METRONIDAZOLE 500MG/NS 100ML 100 ML IV SCH (05:42)
[2019-02-15 07:10] VITALS: BP 102/59
--- NOTE | 2019-02-15 07:29 | NUR ---
Received patient in report this morning. patient is resting in bed. NO S&S of distress noted.
[2019-02-15 09:41] VITALS: BP 102/59
--- NOTE | 2019-02-15 09:46 | NUR ---
Patient is awake, supine in bed. A&Ox3. Lung sounds clear. Bowel sounds active. Skin intact. No edema noted. No pain reported at this time. Patient reports no BM yet today, reminded to call us to look if she does have one to assess for blood. No pain reported. Will continue to monitor. Patient's IV leaked. Retracted slightly, flushed, got blood return. New tegaderm placed and IV restarted with no problems. No redness, irritation or swelling noted. Reminded to call us if any of those symptoms are seen.
--- NOTE | 2019-02-15 10:02 | NUR ---
IV leaked again. Patient is likely discharged later today so removed IV. Catheter tip intact. Pressure dressing applied.
[2019-02-15 12:04] VITALS: BP 133/66
[2019-02-15] MEDS ORDERED: FLAGYL250 MG PO (12:16)
--- NOTE | 2019-02-15 12:19 | NUR ---
Nutrition Screen Note RD Recommendation for Physician: Continue diet as ordered Plan of Care: RD following, monitoring for adequacy and tolerance Nutrition reason for involvement: Nutrition Risk Trigger - MST Primary Diagnose(s): Abdominal pain, bloody diarrhea Ht:68 in Wt:301lbs BMI:45.8 kg/m2 IBW:140lbs RD Assessment:(02/15/2019) Initial encounter with patient. Pt denies any difficulty chewing or swallowing. Pt denies any nausea vomiting or diarrhea at this time and is resolved Current Diet: GI soft Malnutrition Evaluation (02/15/2019) The patient does not meet criteria for a specified degree of malnutrition at this time. Will re-evaluate at follow-up as appropriate. Diet Education Needs Assessment: Diet education not indicated. Diet Adequacy: Meeting calorie needs, Meeting protein needs, Meeting fluid needs Tolerance: Tolerating PO Nutrition Care Level: Gustabo Swain RD, LD, [facility]
--- NOTE | 2019-02-15 14:21 | NUR ---
Patient discharged home at this time. After eating lunch, patient reports no abdominal pain or discomfort. Patient walked out accompanied by staff, wheelchair refused, steady gait noted. Patient given discharge packet, informed about new medication and directed to continue home meds. Follow up with PCP in 1 week. Diet as tolerated. Given information about abdominal pain and GI bleeding, directed to contact Dr immediately if blood found in stool again and shown where to find other reasons to contact the dr. Patient verbalized understanding. .
--- NOTE | 2019-02-16 04:33 | Discharge Summary ---
PRIMARY CARE DOCTOR: Dr. Cara Durand FINAL DIAGNOSES: Abdominal pain and rectal bleeding. SECONDARY DIAGNOSES: 1. Psoriasis. 2. Morbid obesity. CONSULTANTS: None. PROCEDURES/STUDIES PERFORMED: CT abdomen and pelvis. History per H and P. HOSPITAL COURSE: The patient's CT scan of the abdomen and pelvis did not show any acute disease giving her extensive history of diverticulitis requiring sigmoid resection and also recent Clostridium diff about six months ago. The patient was monitored overnight. Empirically Levaquin and Flagyl were started. On the day of discharge, the patient felt much better. The patient did not have any more abdominal pain, did not have any more rectal bleeding, did not have any more diarrhea. There was a suspicion that this could be recurrent Clostridium diff, especially given the fact the patient is on biological agent for her psoriasis, which means that she is immunosuppressed since we cannot confirm whether she has Clostridium diff or not. Since she no longer has diarrhea, I will go ahead and discharge her home on Flagyl for seven more days. We will try a soft diet to make sure she can tolerate that before she goes home. I have updated her primary care doctor and she will follow up with her in one week. The case was discussed with both the patient and her at the bedside. All questions were answered. CONDITION ON DISCHARGE: Improved. DISCHARGE MEDICATIONS: Please see medication reconciliation form. MD JEROME Travis/AZUL /[id number]
== END 2019-02-15 14:23 | disposition home or self-care (01) ==
LOC: FSED 09:09 → ERHOLD 12:40 → IMCU 14:36
PROVIDERS: ADMIT Internal Medicine; ATTEND Internal Medicine
DX: K92.1 Melena (principal); E66.01 Morbid (severe) obesity due to excess calories; Z68.42 Body mass index [BMI] 45.0-49.9, adult; K57.92 Diverticulitis of intestine, part unspecified, without perforation or abscess without bleeding; L40.9 Psoriasis, unspecified
CPT/HCPCS: 74177; 80048; 80076; 81003; 85025; 99284; G0378 ×2; J2270 ×3; J2405; J7030 ×2

== ENCOUNTER 2019-05-29 22:06 | Emergency (ER) | payer OTHER ==
[~2019-05-29] VITALS: Ht 172.7 cm; Wt 131.5 kg
[~2019-05-29 22:06] MED LIST changes: +FLAGYL250 MG PO
--- OUTSIDE RECORDS SUMMARY | 2019-05-29 22:11 | XMS REPORT | Clinical Summary ---
Author Author Soni Mormon Organization Soni Mormon Address Unknown Phone Unavailable Care Team Providers Care On Line Csr Name Role Phone Cara Durand MD PCP [...] ONLY. APPLY TO LEG, KNEE CAPS ELBOWS 05/28/2018 pantoprazole (PROTONIX) Take 1 tablet 30 [...] Type Specialty Jorge Luis Hall MD Siddiqui, Radha Ferro MD C. difficile enteritis (Primary Dx); Left lower quadrant pain 08/17/2018 Hospital General Internal Medicine - Encounter 08/24/2018 Anthony Dunham MD ESOPHAGOGASTRODUODENOSCOPY (EGD) 06/26/2018 Surgery Gastroenterology Rose Marie Patel 06/26/2018 Anesthesia Gastroenterology Event Jarred Quiñonez MD Yerramadha, Muralidhar Reddy, MD Siddiqui, Radha Ferro MD Generalized abdominal pain (Primary Dx); Microscopic hematuria 06/22/2018 Emergency General Internal Medicine - 06/27/2018 after 05/28/2018 Social History Date Tobacco Use Types Packs/Day [...] Health Maintenance Due Date Last Done Comments INFLUENZA VACCINE 06/13/2019 12/12/2017 Procedures Comments Procedure [...] STAT 06/22/2018 W/AUTO DIFF 10:30 PM CDT after 05/28/2018 Results * Hemoglobin & hematocrit (08/22/2018 5:02 AM CDT) HGB 14.3 12.0 - 16.0 g/dL [facility] DEPARTMENT OF PATHOLOGY AND GENOMIC MEDICINE HCT 46.1 37.0 - 47.0 % [facility] DEPARTMENT OF PATHOLOGY AND GENOMIC MEDICINE Specimen Blood Performing Organization Address City/State/Zipcode Phone Number [facility] [place] [address] [place] [address] PATHOLOGY AND GENOMIC MEDICINE * CT Abdomen Pelvis W Wo Contrast (08/20/2018 8:05 PM CDT) Specimen Narrative Performed At EXAMINATION:CT ABDOMEN PELVIS W WO CONTRAST HM [facility] CLINICAL HISTORY:Abd paindiverticulitis suspected TECHNIQUE: CT [...] before Otherwise unremarkable CT abdomen and pelvis [facility]-[id number] Procedure Note Interface, Radiology Results Incoming - 08/20/2018 8:17 [...] before Otherwise unremarkable CT abdomen and pelvis [facility]-[id number] Performing Organization Address City/State/Zipcode Phone Number [facility] [address] [place] [address] * C difficile toxin (08/19/2018 8:01 PM CDT) Clostridium Positive for C. difficile [facility] DEPARTMENT difficile toxin toxin (A) OF PATHOLOGY Comment: AND GENOMIC Specimen Information MEDICINE Specimen Source: Stool Specimen Site: Not otherwise specified Specimen Stool - Not otherwise specified Performing Organization Address City/State/Zipcode Phone Number [facility] DEPARTMENT OF [address] [place] [address] PATHOLOGY AND [facility] * Estimated GFR (08/19/2018 4:54 AM CDT) Only the most recent of 2 results within the time period is included. [facility] Estimated GFR >=90 mL/min/1.73 m2 [facility] Comment: DEPART[facility] OF [facility] PATH[facility] AND rpretation [place] [address] MEDICINE >=90 Normal or high G2 60-89Mildly decreased [id number] Mildly to moderately decreased [id number] Moderately to severely decreased G4 15-29Severely decreased G5 <15Kidney failure The eGFR was calculated using the Chronic Kidney Disease Epidemiology Collaboration (CKD-EPI) equation. Interpretation is based on recommendations of the National Kidney Foundation-Kidney Disease Outcomes Quality Initiative (NKF-KDOQI) published in 2014. Specimen Plasma specimen Performing Organization Address City/State/Zipcode Phone Number [place] [address] [place] [address] PATHOLOGY AND [facility] MEDICINE * CBC with platelet and differential (08/19/2018 4:54 AM CDT) Only the most recent of 5 results within the time period is included. [facility] WBC 6.17 4.50 - 11.00 k/uL [facility] DEPARTMENT OF PATHOLOGY AND GENOMIC MEDICINE RBC 4.58 4.20 - 5.50 m/uL [facility] DEPARTMENT OF PATHOLOGY AND GENOMIC MEDICINE HGB 12.8 12.0 - 16.0 g/dL [facility] DEPARTMENT OF PATHOLOGY AND GENOMIC MEDICINE HCT 40.3 37.0 - 47.0 % [facility] DEPARTMENT OF PATHOLOGY AND GENOMIC MEDICINE MCV 88.0 82.0 - 100.0 fL [facility] DEPARTMENT OF PATHOLOGY AND GENOMIC MEDICINE MCH 27.9 27.0 - 34.0 pg [facility] DEPARTMENT OF PATHOLOGY AND GENOMIC MEDICINE MCHC 31.8 31.0 - 37.0 g/dL [facility] DEPARTMENT OF PATHOLOGY AND GENOMIC MEDICINE RDW - SD 42.6 37.0 - 55.0 fL [facility] DEPARTMENT OF PATHOLOGY AND GENOMIC MEDICINE MPV 9.3 8.8 - 13.2 fL [facility] DEPARTMENT OF PATHOLOGY AND GENOMIC MEDICINE Platelet count 241 150 - 400 k/uL [facility] DEPARTMENT OF PATHOLOGY AND GENOMIC MEDICINE Nucleated RBC 0.00 /100 WBC [facility] DEPARTMENT OF PATHOLOGY AND GENOMIC MEDICINE Neutrophils 66.0 39.0 - 69.0 % [facility] DEPARTMENT OF PATHOLOGY AND GENOMIC MEDICINE Lymphocytes 25.1 25.0 - 45.0 % [facility] DEPARTMENT OF PATHOLOGY AND GENOMIC MEDICINE Monocytes 5.7 0.0 - 10.0 % [facility] DEPARTMENT OF PATHOLOGY AND GENOMIC MEDICINE Eosinophils 2.6 0.0 - 5.0 % [facility] DEPARTMENT OF PATHOLOGY AND GENOMIC MEDICINE Basophils 0.3 0.0 - 1.0 % [facility] DEPARTMENT OF PATHOLOGY AND GENOMIC MEDICINE Specimen Blood Performing Organization Address City/[facility]/Zipcode Phone Number [address] [place] [id number] PATHOLOGY [facility] * Basic metabolic panel (08/19/2018 4:54 AM CDT) Pathologist [facility] Sodium 141 135 - 148 mEq/L [facility] DEPARTMENT OF PATHOLOGY AND GENOMIC MEDICINE Potassium 3.9 3.5 - 5.0 mEq/L [facility] DEPARTMENT OF PATHOLOGY AND GENOMIC MEDICINE Chloride 104 98 - 112 mEq/L [facility] DEPARTMENT OF PATHOLOGY AND GENOMIC MEDICINE CO2 26 24 - 31 mEq/L [facility] DEPARTMENT OF PATHOLOGY AND GENOMIC MEDICINE Anion gap 11@ANIO 7 - 15 mEq/L [facility] DEPARTMENT OF PATHOLOGY AND GENOMIC MEDICINE BUN 17 6 - 20 mg/dL [facility] DEPARTMENT OF PATHOLOGY AND GENOMIC MEDICINE Creatinine 0.60 0.50 - 0.90 mg/dL [facility] DEPARTMENT OF PATHOLOGY AND GENOMIC MEDICINE Glucose 97 65 - 99 mg/dL [facility] DEPARTMENT OF PATHOLOGY AND GENOMIC MEDICINE Calcium 9.5 8.3 - 10.2 mg/dL [facility] DEPARTMENT OF PATHOLOGY AND GENOMIC MEDICINE Specimen Plasma specimen Performing Organization Address City/[facility]/Zipcode Phone Number [facility] [address] [place] [address] PATHOLOGY [facility] * Urinalysis screen and microscopy, with reflex to culture (08/17/2018 10:21 PM CDT) Only the most recent of 2 results within the time period is included. Pathologist [facility] Specimen site Clean catch [facility] DEPARTMENT OF PATHOLOGY AND GENOMIC MEDICINE Color, UA Yellow [facility] DEPARTMENT OF PATHOLOGY AND GENOMIC MEDICINE Appearance, UA Clear [facility] DEPARTMENT OF PATHOLOGY AND GENOMIC MEDICINE Specific 1.030 1.001 - 1.035 [facility] gravity, DEPARTMENT OF PATHOLOGY AND GENOMIC MEDICINE pH, UA 5.0 5.0 - 8.5 [facility] DEPARTMENT OF PATHOLOGY AND GENOMIC MEDICINE Protein, UA Negative Negative [facility] DEPARTMENT OF PATHOLOGY AND GENOMIC MEDICINE Glucose, UA Negative Negative [facility] DEPARTMENT OF PATHOLOGY AND GENOMIC MEDICINE Ketones, UA Negative Negative [facility] DEPARTMENT OF PATHOLOGY AND GENOMIC MEDICINE Bilirubin, UA Negative Negative [facility] DEPARTMENT OF PATHOLOGY AND GENOMIC MEDICINE Blood, UA Negative Negative [facility] DEPARTMENT OF PATHOLOGY AND GENOMIC MEDICINE Nitrite, UA Negative Negative [facility] DEPARTMENT OF PATHOLOGY AND GENOMIC MEDICINE Urobilinogen, Negative <2.0 [facility] DEPARTMENT OF PATHOLOGY AND GENOMIC MEDICINE Leukocyte Negative Negative [facility] esterase, DEPARTMENT OF PATHOLOGY AND GENOMIC MEDICINE Epithelial Many /HPF [facility] cells, DEPARTMENT OF PATHOLOGY AND GENOMIC MEDICINE WBC, UA 0-5 0 - 4 /HPF [facility] DEPARTMENT OF PATHOLOGY AND GENOMIC MEDICINE RBC, UA 0-5 0 - 5 /HPF [facility] DEPARTMENT OF PATHOLOGY AND GENOMIC MEDICINE Bacteria, UA None seen None seen [facility] DEPARTMENT OF PATHOLOGY AND GENOMIC MEDICINE Yeast, UA None seen [facility] DEPARTMENT OF PATHOLOGY AND GENOMIC MEDICINE Yeast with None seen [facility] pseudohyphae, DEPARTMENT OF PATHOLOGY AND GENOMIC MEDICINE Specimen Urine Performing Organization Address [facility] Centercode Phone Number [address] [place] [address] PATHOLOGY AND GENOMIC MEDICINE * hCG qualitative, urine screen (08/17/2018 10:21 PM CDT) hCG Negative Negative [facility] qualitative, Comment: DEPARTMENT OF urine The manufacturers stated PATHOLOGY AND sensitivity of HcG test for GENOMIC serum is >/=10 MEDICINE mIU/ml and urine is >/=20mIU/ml. Specimen Urine Performing Organization Address [facility] Centercode Phone Number [address] [place] [address] PATHOLOGY [facility] * Urine culture (08/17/2018 10:21 PM CDT) Pathologist [facility] Urine culture SEE COMMENTComment: [facility] Bacteriuria screen negative. DEPARTMENT OF PATHOLOGY AND GENOMIC MEDICINE Specimen Urine Performing Organization Address City/[facility] Centercode Phone Number [address] [place] [address] PATHOLOGY AND GENOMIC MEDICINE * CT Abdomen Pelvis W Contrast (08/17/2018 10:07 PM CDT) Only the most recent of 2 results within the time period is included. Specimen Narrative Performed At Examination:CT ABDOMEN PELVIS W [...] acute abnormality identified in abdomen or pelvis. [facility]-[id number] Procedure Note Interface, Radiology Results Incoming - [...] acute abnormality identified in abdomen or pelvis. [facility]-[id number] Performing Organization Address City/State/Zipcode Phone Number [facility] [address] [place] [address] * Lipase level (08/17/2018 8:15 PM CDT) Only the most recent of 3 results within the time period is included. Lipase 41 13 - 60 U/L [facility] DEPARTMENT OF PATHOLOGY AND GENOMIC MEDICINE Specimen Plasma specimen Performing Organization Address City/State/Zipcode Phone Number [facility] [address] [place] [address] PATHOLOGY AND GENOMIC [facility] * Comprehensive metabolic panel (08/17/2018 8:15 PM CDT) Only the most recent of 4 results within the time period is included. Sodium 144 135 - 148 mEq/L [facility] DEPARTMENT OF PATHOLOGY AND GENOMIC MEDICINE Potassium 4.3 3.5 - 5.0 mEq/L [facility] DEPARTMENT OF PATHOLOGY AND GENOMIC MEDICINE Chloride 104 98 - 112 mEq/L [facility] DEPARTMENT OF PATHOLOGY AND GENOMIC MEDICINE CO2 28 24 - 31 mEq/L [facility] DEPARTMENT OF PATHOLOGY AND GENOMIC MEDICINE Anion gap 12@ANIO 7 - 15 mEq/L [facility] DEPARTMENT OF PATHOLOGY AND GENOMIC MEDICINE BUN 18 6 - 20 mg/dL [facility] DEPARTMENT OF PATHOLOGY AND GENOMIC MEDICINE Creatinine 0.60 0.50 - 0.90 mg/dL [facility] DEPARTMENT OF PATHOLOGY AND GENOMIC MEDICINE Glucose 96 65 - 99 mg/dL [facility] DEPARTMENT OF PATHOLOGY AND GENOMIC MEDICINE Calcium 10.6 (H) 8.3 - 10.2 mg/dL [facility] DEPARTMENT OF PATHOLOGY AND GENOMIC MEDICINE Protein 8.0 6.3 - 8.3 g/dL [facility] Comment: DEPARTMENT OF [place] PATHOLOGY AND 4.6-7.0 g/dL [place] [address] MEDICINE week 4.4-7.6 g/dL 7 months-1year 5.1-7.3 g/dL 1-2 years5.6-7 .5 g/dL >3 years6.0-8 .0 g/dL 18-150 6.3-8.3 g/dL Albumin 4.5 3.5 - 5.0 g/dL [facility] DEPARTMENT OF PATHOLOGY AND GENOMIC MEDICINE A/G ratio 1.3 0.7 - 3.8 [facility] DEPARTMENT OF PATHOLOGY AND GENOMIC MEDICINE Alkaline 147 (H) 35 - 104 U/L [facility] phosphatase DEPARTMENT OF PATHOLOGY AND GENOMIC MEDICINE AST 25 10 - 35 U/L [facility] DEPARTMENT OF PATHOLOGY AND GENOMIC MEDICINE ALT 23 5 - 50 U/L [facility] DEPARTMENT OF PATHOLOGY AND GENOMIC MEDICINE Total bilirubin 0.2 0.0 - 1.2 mg/dL [facility] DEPARTMENT OF PATHOLOGY AND GENOMIC MEDICINE Specimen Plasma specimen Performing Organization Address City/[facility] Centercode Phone Number [address] [place] [address] PATHOLOGY AND GENOMIC MEDICINE * Surgical pathology request (06/26/2018 9:51 AM CDT) [facility] DEPARTMENT OF PATHOLOGY AND GENOMIC MEDICINE Surgical See link below for PDF Lab [facility] pathology Report DEPARTMENT OF report PATHOLOGY AND GENOMIC MEDICINE Result status This is Final Report to [facility] [id number] DEPARTMENT OF PATHOLOGY AND GENOMIC MEDICINE Specimen Performing Organization Address [facility] Centercode Phone Number [address] [place] [address] PATHOLOGY AND GENOMIC MEDICINE * NM Hepatobiliary W Pharm (HIDA Scan w Pharm) (06/25/2018 3:53 PM CDT) Specimen Narrative Performed At PROCEDURE: NM HEPATOBILIARY W PHARM (HIDA SCAN W PHARM) [facility] INDICATION: RUQ paincholecystitis suspected COMPARISON: Gallbladder ultrasound 06/22/2018 TECHNIQUE: The patient was injected with 6 mCi of [id number] and dynamic images of the abdomen were [...] bile duct obstruction. 2.Normal gallbladder ejection fraction. [facility]-[id number] Procedure Note Interface, Radiology Results Incoming - 06/25/2018 4:22 PM CDT PROCEDURE: NM HEPATOBILIARY W PHARM (HIDA SCAN W PHARM) INDICATION: RUQ pain cholecystitis suspected COMPARISON: Gallbladder ultrasound 06/22/2018 TECHNIQUE: The patient was injected with 6 mCi of [id number] and dynamic images of the abdomen were [...] duct obstruction. 2. Normal gallbladder ejection fraction. [facility]-[id number] Performing Organization Address City/[facility] Centercode Phone Number [facility] [address] [place] [address] * Estimated GFR (06/25/2018 9:25 AM CDT) Only the most recent of 3 results within the time period is included. [facility] GFR Non Af Amer >90 mL/min/1.73 m2 [facility] DEPARTMENT OF PATHOLOGY AND GENOMIC MEDICINE GFR Af Amer >90 mL/min/1.73 m2 [facility] Comment: DEPARTMENT OF Chronic kidney disease: <60 PATHOLOGY AND mL/min/1.73m2 GENOMIC Kidney failure: <15 MEDICINE mL/min/1.73m2 The estimated GFR is calculated from [...] Americans. Specimen Plasma specimen Performing Organization Address [facility] Centerconm Phone Number [address] [address] PATHOLOGY AND GENOMIC MEDICINE * ECG 12 lead (06/23/2018 1:50 AM CDT) Ventricular 75 [facility] rate Atrial rate 75 [facility] MT interval 154 [facility] QRSD interval 78 [facility] QT interval 398 [facility] QTC interval 444 [facility] P axis 1 30 [facility] QRS axis 1 15 [facility] T wave axis 13 [facility] EKG impression Normal sinus rhythm-Low [facility] voltage QRS-Inferior infarct (cited on or before 30-MAR-2016)-Cannot rule out Anterior infarct (cited on or before 12-JUL-2007)-Abnormal ECG-In automated comparison with ECG of 12-JUN-2017 16:08,-Questionable change in initial forces of Inferior leads- Specimen Performing Organization Address [facility] Centerconm Phone Number [facility] [address] [place] [address] * US Gallbladder (06/22/2018 11:06 PM CDT) Specimen Narrative Performed At EXAMINATION:US GALLBLADDER [facility] CLINICAL HISTORY: Right upper quadrant pain COMPARISON:None. FINDINGS: Gallbladder: The gallbladder is without evidence of calculi. The gallbladder wall is not thickened and there is no pericholecystic fluid. CBD: 4 mm Portal vein: The portal vein demonstrates normal hepatopedal flow. Liver: The visualized portions of liver are unremarkable. IMPRESSION: Normal gallbladder ultrasound examination. [id number] Procedure Note Hm Interface, Radiology Results Incoming [...] are unremarkable. IMPRESSION: Normal gallbladder ultrasound examination. [facility]-[id number] Performing Organization Address [facility] Centerconm Phone Number [facility] [address] [place] [address] * ECG ED Preliminary Interpretation - NOT AN ORDER (06/22/2018 10:43 PM CDT) Narrative Performed At Jarred Quiñonez MD 06/23/20183:13 PM ECG ED Preliminary Interpretation - Not an Order Performed by: SHAJI DWYER Authorized by: JARRED QUIÑONEZ ECG reviewed by ED Physician in the absence of a derrick follower: yes Previous ECG: Previous ECG:Compared to current [...] CDT) PTT 28.3 23.0 - 36.0 sec [facility] Comment: DEPARTMENT OF PTT therapeutic range for PATHOLOGY AND unfractionated heparin is GENOMIC 61.0-112.0 seconds which MEDICINE corresponds to Anti-Xa 0.3-0.7 U/ml. Specimen Blood Performing Organization Address City/[facility]/Zipcode Phone Number [facility] [place] [address] [place] [address] PATHOLOGY AND GENOMIC MEDICINE * Prothrombin time with INR (06/22/2018 10:30 PM CDT) Prothrombin 13.2 12.0 - 15.0 sec [facility] time DEPARTMENT OF PATHOLOGY AND GENOMIC MEDICINE INR 1.0 [facility] Comment: DEPARTMENT OF The International Normalized PATHOLOGY AND Ratio (INR) is a therapeutic GENOMIC monitoring tool for patients MEDICINE who are stable on oral anticoagulant therapy. An INR of 2.0-3.0 is suggested for deep vein thrombosis/pulmonary embolism. Specimen Blood Performing Organization Address [facility] Centercode Phone Number [facility] [place] [address] [place] [address] PATHOLOGY AND GENOMIC MEDICINE after 05/28/2018 Insurance Type Payer Benefit Subscriber ID Effective Phone Address Plan / Dates Group Exchange [employer] xxxxxxxxxxxxx [id number] [facility]CHANGE [facility] Advance Directives Patient has advance care planning documents on file. For more information, jake lizarraga contact: Zachariah Loera [address] [place] [address]
--- OUTSIDE RECORDS SUMMARY | 2019-05-29 22:12 | XMS REPORT | Clinical Summary ---
Author Author [facility] Address Unknown Phone Unavailable Care Team Providers Care Wellness Nurse Rn Name Role Phone Cara Durand MD PCP [...] Not on file Results Not on fileafter 05/28/2018 Insurance Payer Benefit Subscriber ID Type Phone Address Plan / Group [facility] xxxxxxxxxxxxx [phone] [facility] [address] (Home) [place] [address] Wero Roqueelle Personal/F Self [id number] [place] [place] [place] [address] Advance Directives For more information, please contact: [facility] [address] [place] [address] Date Inactivated Comments Code Status Date Activated 02/07/2017 6:32 PM Full Code 02/06/2017 7:44 PM This code status was determined by: Patient
[2019-05-29] MEDS ORDERED: KETOROLAC TROMETHAMINE 30 MG/ML VIAL IV STA (22:39)
[2019-05-29] MEDS ORDERED: SODIUM CHLORIDE 0.9% 1000ML 1,000 ML IV SCH (22:45)
[2019-05-29] MEDS ORDERED: SODIUM CHLORIDE 0.9% 1000ML 1,000 ML ONE (23:02)
[2019-05-29] MEDS ORDERED: KETOROLAC TROMETHAMINE 30 MG/ML VIAL ONE (23:02)
--- NOTE | 2019-05-30 00:25 | Diagnostic Imaging Report ---
RIGHT UPPER QUADRANT ULTRASOUND TECHNIQUE: Ultrasound evaluation of the right upper quadrant abdomen. Color Doppler evaluation was utilized to supplement the evaluation. Per the technologist performing the exam, the exam is markedly limited secondary to body habitus and regional bowel gas. HISTORY: Right upper quadrant pain. COMPARISON: CT of the abdomen February 14, 2019. DISCUSSION: LIVER: No focal lesion identified. The liver measures 18 cm in length in the right mid-clavicular line. Diffusely increased echogenicity. BILIARY: The gallbladder is contracted, no definitive shadowing calculus. The sonographic Yen's sign is reported as negative. Common bile duct measures 0.5 cm. RIGHT KIDNEY: 13 cm in length. No hydronephrosis, solid mass, or cystic lesion identified. PANCREAS: Partially obscured by regional bowel gas, but no abnormality identified within this limitation. PERITONEUM: No free fluid. VASCULATURE: The visualized portions of the aorta and inferior vena cava appear unremarkable. The portal vein is patent with hepatopedal flow. IMPRESSION: 1. Contracted gallbladder without a visible stone. 2. Hepatomegaly and hepatic steatosis. Signed by: Dr. Andriy Ziegler D.O., M.M.M. on 05/30/2019 12:22 AM
[2019-05-30 00:50] VITALS: BP 136/76
== END 2019-05-30 00:52 | disposition home or self-care (01) ==
LOC: FSED 22:06
DX: R10.11 Right upper quadrant pain (principal); R11.0 Nausea
CPT/HCPCS: 76705; 80053; 81003; 85025; 99283; J1885; J7030

== ENCOUNTER 2019-07-10 19:43 | Inpatient (IN) | payer OTHER ==
[~2019-07-10] VITALS: Ht 172.7 cm; Wt 145.1 kg
--- OUTSIDE RECORDS SUMMARY | 2019-07-10 19:47 | XMS REPORT | Clinical Summary ---
Author Author [facility] Organization [facility] Address Unknown Phone Unavailable Care Team Providers Care Energy Administrator Name Role Phone Cara Durand MD PCP [...] topically 2 (two) times a day. Monday THRMonday ONLY. TAIL BONE, STOMACH AND BACK OF EARS Active acetaminophen (TYLENOL) Take 325 mg 0 325 MG tablet by mouth every 6 (six) hours as needed for fever. 07/31/2019 Active pantoprazole (PROTONIX) Take 1 tablet 30 tablet 0 40 MG EC tablet (40 mg total) 9 by mouth daily for 30 days. 07/27/2018 [...] (three) times a day for 10 days. 07/05/2019 azithromycin (ZITHROMAX) Take 2 6 tablet 0 250 MG tablet tablets the 9 first day, then 1 tablet daily for 4 days. Active Problems Problem Noted Date Rectal bleeding 06/30/2019 Colitis due to Clostridium difficile 08/20/2018 C. difficile enteritis 08/17/2018 Generalized abdominal pain 04/26/2018 Encounters Care Team Description Date Type Specialty Izabel Johnson MD Niazi, Nadia, MD Rectal bleeding (Primary Dx); Pneumonia due to infectious organism, unspecified laterality, unspecified part of lung 06/29/2019 Emergency General Internal Medicine - 07/01/2019 Jorge Luis Hall MD Siddiqui, Imran Alam, MD C. difficile enteritis (Primary Dx); Left lower quadrant pain 08/17/2018 Hospital General Internal Medicine - Encounter 08/24/2018 after 07/09/2018 Social History Date Tobacco Use Types Packs/Day Years Used Never Smoker Smokeless Tobacco: Never Used Drinks/Week oz/Week Comments Alcohol Use No Sex Assigned at Date Recorded Not on file Industry Job Start Date Occupation Not on file Not on file Not on file Travel End Travel History Travel Start No recent travel history available. Last Filed Vital Signs Reading Time Taken Comments Vital Sign 122/61 07/01/2019 10:56 AM CDT Blood Pressure 73 07/01/2019 10:56 AM CDT Pulse 36.9 C (98.4 F) 07/01/2019 10:56 AM CDT Temperature 16 07/01/2019 10:56 AM CDT Respiratory Rate 92% 07/01/2019 10:56 AM CDT Oxygen Saturation - - Inhaled Oxygen Concentration 130 kg (287 lb) 06/29/2019 10:43 PM CDT Weight 172.7 cm (5' 8") 06/29/2019 10:43 PM CDT Height 43.64 06/29/2019 10:43 PM CDT Body Mass Index Plan of Treatment Health Maintenance Due Date Last Done Comments CERVICAL CANCER SCREENING 1993 INFLUENZA VACCINE 06/13/2019 Procedures Comments Procedure Name Priority Date/Time Associated Diagnosis HC COMPLETE BLD COUNT Routine 07/01/2019 W/AUTO DIFF 7:25 AM CDT ESTIMATED GFR Routine 07/01/2019 7:25 AM CDT BASIC METABOLIC PANEL Routine 07/01/2019 7:25 AM CDT HC COMPLETE BLD COUNT Routine 06/30/2019 W/AUTO DIFF 12:24 PM CDT ESTIMATED GFR Routine 06/30/2019 6:06 AM CDT COMPREHENSIVE METABOLIC Routine 06/30/2019 PANEL 6:06 AM CDT HC COMPLETE BLD COUNT Routine 06/30/2019 W/AUTO DIFF 6:06 AM CDT XR CHEST 2 VW STAT 06/30/2019 1:36 AM CDT BLOOD CULTURE, AEROBIC & Routine 06/30/2019 ANAEROBIC 1:18 AM CDT BLOOD CULTURE, AEROBIC & Routine 06/30/2019 ANAEROBIC 1:06 AM CDT OCCULT BLOOD, STOOL Routine 06/30/2019 1:[address] ABDOMEN PELVIS W STAT 06/30/2019 CONTRAST 12:03 AM CDT URINALYSIS SCREEN AND Routine 06/29/2019 MICROSCOPY, WITH REFLEX 11:55 PM CDT TO CULTURE URINE CULTURE Routine 06/29/2019 11:55 PM CDT TYPE AND SCREEN Routine 06/29/2019 11:02 PM CDT LIPASE LEVEL STAT 06/29/2019 11:02 PM CDT ESTIMATED GFR STAT 06/29/2019 11:02 PM CDT COMPREHENSIVE METABOLIC STAT 06/29/2019 PANEL 11:02 PM CDT PARTIAL THROMBOPLASTIN STAT 06/29/2019 TIME (PTT) 11:02 PM CDT PROTHROMBIN TIME WITH INR STAT 06/29/2019 11:02 PM CDT HC COMPLETE BLD COUNT STAT 06/29/2019 W/AUTO DIFF 11:02 PM CDT HEMOGLOBIN & HEMATOCRIT Routine 08/22/2018 5:02 AM [...] STAT 08/17/2018 W/AUTO DIFF 8:15 PM CDT after 07/09/2018 Results * Estimated GFR (07/01/2019 7:25 AM CDT) Only the most recent of 5 results within the time period is included. Pathologist [facility] Estimated GFR >=90 mL/min/1.73 m2 [place] Comment: [facility] rpretation G1 >=90 Normal or high G2 60-89Mildly decreased G3u11-39 Mildly to moderately decreased O3t11-42 Moderately to severely decreased G4 15-29Severely decreased G5 <15Kidney failure The eGFR was calculated using the Chronic Kidney Disease Epidemiology Collaboration (CKD-EPI) equation. Interpretation is based on recommendations of the National Kidney Foundation-Kidney Disease Outcomes Quality Initiative (NKF-KDOQI) published in 2014. Specimen Plasma specimen Performing Organization Address City/State/Zipcode Phone [place] [address] [place] [address] PATHOLOGY AND GENOMIC MEDICINE [facility] [address] [place] [address] [facility] * CBC with platelet and differential (07/01/2019 7:25 AM CDT) Only the most recent of 6 results within the time period is included. Pathologist [facility] WBC 4.94 4.50 - 11.00 k/uL [facility] RBC 4.67 4.20 - 5.50 m/uL [facility] HGB 13.1 12.0 - 16.0 g/dL [facility] HCT 42.3 37.0 - 47.0 % [facility] MCV 90.6 82.0 - 100.0 fL [facility] MCH 28.1 27.0 - 34.0 pg [facility] MCHC 31.0 31.0 - 37.0 g/dL [facility] RDW - SD 46.1 37.0 - 55.0 fL [facility] MPV 9.0 8.8 - 13.2 fL [facility] Platelet count 220 150 - 400 k/uL [facility] Nucleated RBC 0.00 /100 WBC [facility] Neutrophils 70.2 (H) 39.0 - 69.0 % [facility] Lymphocytes 21.1 (L) 25.0 - 45.0 % [facility] Monocytes 5.5 0.0 - 10.0 % [facility] Eosinophils 2.2 0.0 - 5.0 % [facility] Basophils 0.6 0.0 - 1.0 % [facility] Specimen Performing Organization Address City/[facility] Phone Number [address] [place] [address] PATHOLOGY AND GENOMIC MEDICINE [address] * Basic metabolic panel (07/01/2019 7:25 AM CDT) Only the most recent of 2 results within the time period is included. Sodium 140 135 - 148 mEq/L [facility] Potassium 3.9 3.5 - 5.0 mEq/L [facility] Chloride 107 98 - 112 mEq/L [facility] CO2 24 24 - 31 mEq/L [facility] Anion gap 9@ANIO 7 - 15 mEq/L [facility] BUN 8 6 - 20 mg/dL [facility] Creatinine 0.50 0.50 - 0.90 mg/dL [facility] Glucose 96 65 - 99 mg/dL [facility] Calcium 9.2 8.3 - 10.2 mg/dL [facility] Specimen Plasma specimen Performing Organization Address City/[facility] Phone Number [address] [place] [address] PATHOLOGY AND GENOMIC MEDICINE [address] * Comprehensive metabolic panel (06/30/2019 6:06 AM CDT) Only the most recent of 3 results within the time period is included. Sodium 139 135 - 148 mEq/L [facility] Potassium 4.0 3.5 - 5.0 mEq/L [facility] Chloride 108 98 - 112 mEq/L [facility] CO2 23 (L) 24 - 31 mEq/L [facility] Anion gap 8@ANIO 7 - 15 mEq/L [facility] BUN 17 6 - 20 mg/dL [facility] Creatinine 0.50 0.50 - 0.90 mg/dL [facility] Glucose 100 (H) 65 - 99 mg/dL [facility] Calcium 8.8 8.3 - 10.2 mg/dL [facility] Protein 6.5 6.3 - 8.3 g/dL [place] Comment: [facility] 4.6-7.0 g/dL 1 week 4.4-7.6 g/dL 7 months-1year 5.1-7.3 g/dL 1-2 years5.6-7 .5 g/dL >3 years6.0-8 .0 g/dL 18-150 6.3-8.3 g/dL Albumin 3.6 3.5 - 5.0 g/dL [facility] A/G ratio 1.2 0.7 - 3.8 [facility] Alkaline 122 (H) 35 - 104 U/L [place] phosphatase [facility] AST 16 10 - 35 U/L [facility] ALT 17 5 - 50 U/L [facility] Total bilirubin 0.2 0.0 - 1.2 mg/dL [facility] Specimen Plasma specimen Performing Organization Address City/State/Zipcode [place] Number [place] [address] [address] [place] [id number] PATHOLOGY AND GENOMIC MEDICINE [facility] [address] [place] * XR Chest 2 Vw (06/30/2019 1:36 AM CDT) Specimen Narrative Performed At EXAMINATION: XR CHEST 2 VW RADIANT CLINICAL HISTORY: Coughnew onset COMPARISON:06/12/2017. IMPRESSION: The lungs are clear. No pleural effusion or pneumothorax. Cardiac silhouette is borderline enlarged. Degenerative spine changes. No acute osseous abnormalities. [facility]-[id number] Procedure Note Interface, Radiology Results Incoming - 06/30/2019 1:44 AM CDT EXAMINATION: XR CHEST 2 VW CLINICAL HISTORY: Cough new onset COMPARISON: 06/12/2017. IMPRESSION: The lungs are clear. No pleural effusion or pneumothorax. Cardiac silhouette is borderline enlarged. Degenerative spine changes. No acute osseous abnormalities. [facility]-[id number] Performing Organization Address City/[facility]/Zipcode Phone Number [address] [address] * Blood culture, aerobic & anaerobic (06/30/2019 1:18 AM CDT) Only the most recent of 2 results within the time period is included. Blood culture No growth after 5 days of [place] isolate incubation. [facility] Comment: HOSPITAL Specimen Information Specimen Source: Blood Specimen Site: Peripheral Specimen Blood - Peripheral Performing Organization Address City/State/Zipcode Phone Number [facility] DEPARTMENT OF [address] [place] [address] PATHOLOGY AND GENOMIC MEDICINE [place] [address] HOSPITAL * Occult blood, stool (06/30/2019 1:00 AM CDT) Occult blood, Positive for Occult blood (A) [place] stool Comment: [facility] CLEAR Specimen Information [facility] Specimen Source: Stool Specimen Site: Nonpreserved Specimen Stool - Nonpreserved Performing Organization Address [facility] Phone Number [facility] [place] [id number] [place] [address] [place] [address] PATHOLOGY AND GENOMIC MEDICINE [place] [facility] CLEAR [address] [place] [address] * CT Abdomen Pelvis W Contrast (06/30/2019 12:03 AM CDT) Only the most recent of 2 results within the time period is included. Specimen Narrative Performed At [facility]:LLQ pain TECHNIQUE: Multidetector CT of the abdomen and pelvis was performed following intravenous administration of iodinated contrast with multiplanar reformats. CT scans are performed using radiation dose reduction techniques (iterative reconstruction and/or automated exposure control). Technical factors are evaluated and adjusted to ensure appropriate moderation of exposure. Automated dose management technology is applied to adjust radiation exposure while achieving a diagnostic quality image. COMPARISON:CT 08/20/2018. FINDINGS: Lung bases:Few peripheral groundglass opacities at bilateral lung bases. Liver:Mild hepatic steatosis. Gallbladder and biliary:Gallbladder is contracted. Common bile duct is not dilated. Pancreas:Normal. Spleen:Normal. Gastrointestinal: Gastric lap band is present. Large and small bowel are normal in caliber. Appendix is not visualized. No focal inflammatory changes within the right lower quadrant of the abdomen. Adrenals:Normal. Kidneys and ureters: Left renal cyst measuring 2.2 cm. No suspicious mass or hydronephrosis. Urinary bladder:Normal. Lymph nodes:No enlarged lymph nodes in the abdomen or pelvis. Peritoneum:No ascites or free air. Vascular:Mild atherosclerotic changes of the abdominal aorta and major branch vessels. Reproductive organs:Uterus is absent. Unremarkable adnexae. Abdominal wall: Access port for gastric lap band in the left anterior subcutaneous soft tissues. Bones:Mild degenerative changes. IMPRESSION: 1. Mild hepatic steatosis. 2. Few peripheral groundglass opacities at bilateral lung bases, likely infectious/inflammatory. [facility]-[id number] Procedure Note Interface, Radiology Results Incoming - 06/30/2019 12:[address] ABDOMEN PELVIS W CONTRAST CLINICAL INDICATION: LLQ pain TECHNIQUE: Multidetector CT of the abdomen and pelvis was performed following intravenous administration of iodinated contrast with multiplanar reformats. CT scans are performed using radiation dose reduction techniques (iterative reconstruction and/or automated exposure control). Technical factors are evaluated and adjusted to ensure appropriate moderation of exposure. Automated dose management technology is applied to adjust radiation exposure while achieving a diagnostic quality image. COMPARISON: CT 08/20/2018. FINDINGS: Lung bases: Few peripheral groundglass opacities at bilateral lung bases. Liver: Mild hepatic steatosis. Gallbladder and biliary: Gallbladder is contracted. Common bile duct is not dilated. Pancreas: Normal. Spleen: Normal. Gastrointestinal: Gastric lap band is present. Large and small bowel are normal in caliber. Appendix is not visualized. No focal inflammatory changes within the right lower quadrant of the abdomen. Adrenals: Normal. Kidneys and ureters: Left renal cyst measuring 2.2 cm. No suspicious mass or hydronephrosis. Urinary bladder: Normal. Lymph nodes: No enlarged lymph nodes in the abdomen or pelvis. Peritoneum: No ascites or free air. Vascular: Mild atherosclerotic changes of the abdominal aorta and major branch vessels. Reproductive organs: Uterus is absent. Unremarkable adnexae. Abdominal wall: Access port for gastric lap band in the left anterior subcutaneous soft tissues. Bones: Mild degenerative changes. IMPRESSION: 1. Mild hepatic steatosis. 2. Few peripheral groundglass opacities at bilateral lung bases, likely infectious/inflammatory. [facility]-[id number] Performing Organization Address City/State/Zipcode Phone Number [facility] [phone] [place] [address] * Urinalysis screen and microscopy, with reflex to culture (06/29/2019 11:55 PM CDT) Only the most recent of 2 results within the time period is included. Specimen site Clean catch [facility] Color, UA Yellow [facility] Appearance, UA Clear [facility] Specific 1.027 1.001 - 1.035 [place] gravity, UA [facility] pH, UA 5.0 5.0 - 8.5 [facility] Protein, UA Negative Negative [facility] Glucose, UA Negative Negative [facility] Ketones, UA Negative Negative [facility] Bilirubin, UA Negative Negative [facility] Blood, UA Negative Negative [facility] Nitrite, UA Negative Negative [facility] Urobilinogen, Negative <2.0 [facility] Leukocyte Negative Negative [place] esterase, UA [facility] Epithelial Few Few /HPF [place] cells, [facility] WBC, UA 0-5 0 - 4 /HPF [facility] RBC, UA 0-5 0 - 5 /HPF [facility] Bacteria, UA None seen None seen [facility] Yeast, UA None seen [facility] Yeast with None seen [place] pseudohyphae, [facility] Specimen Urine Performing Organization Address City/[facility] Phone Number [facility] [place] [address] [place] [address] PATHOLOGY AND GENOMIC MEDICINE [address] [place] [address] [facility] * Urine culture (06/29/2019 11:55 PM CDT) Only the most recent of 2 results within the time period is included. Urine culture SEE COMMENTComment: [place] Bacteriuria screen negative. [facility] Specimen Urine Performing Organization Address City/[facility] Phone Number [facility] [place] [address] [place] [address] PATHOLOGY AND [facility] MEDICINE [facility] [address] * Partial thromboplastin time, activated (06/29/2019 11:02 PM CDT) PTT 31.5 23.0 - 36.0 sec [place] Comment: JOSE QUEVEDO PTT therapeutic range for [facility] unfractionated heparin is 61.0-112.0 seconds which corresponds to Anti-Xa 0.3-0.7 U/ml. Specimen Blood Performing Organization Address [facility] Phone Number [facility] DEPARTMENT OF Counts include 234 beds at the [facility] [place] [address] PATHOLOGY AND [place] [address] [address] * Prothrombin time with INR (06/29/2019 11:02 PM CDT) Prothrombin 12.4 11.5 - 14.5 sec [facility] INR 1.0 [place] Comment: JOSE QUEVEDO The International Normalized [facility] Ratio (INR) is a therapeutic monitoring tool for patients who are stable on oral anticoagulant therapy. An INR of 2.0-3.0 is suggested for deep vein thrombosis/pulmonary embolism. Specimen Blood Performing Organization Address [facility] Phone Number [facility] DEPARTMENT OF Counts include 234 beds at the [facility] [address] [place] [address] PATHOLOGY AND [place] [address] [address] * Type and screen (06/29/2019 11:02 PM CDT) ABO grouping O [facility] Rh type POS [facility] Antibody screen NEG [facility] Specimen Performing Organization Address [facility] Phone Number [facility] [place] [place] [address] [place] [address] PATHOLOGY AND [facility] MEDICINE [place] [address] * Lipase level (06/29/2019 11:02 PM CDT) Only the most recent of 2 results within the time period is included. Lipase 44 13 - 60 U/L [facility] Specimen Plasma specimen Performing Organization Address City/State/Zipcode Phone Number [facility] [place] [address] [place] [address] PATHOLOGY AND GENOMIC MEDICINE [facility] [place] [address] [place] [address] [facility] * Hemoglobin & hematocrit (08/22/2018 5:02 AM CDT) HGB 14.3 12.0 - 16.0 g/dL [facility] DEPARTMENT OF PATHOLOGY AND GENOMIC MEDICINE HCT 46.1 37.0 - 47.0 % [facility] DEPARTMENT OF PATHOLOGY AND GENOMIC MEDICINE Specimen Blood Performing Organization Address City/State/Zipcode Phone Number [facility] [place] [place] [address] [place] [address] PATHOLOGY AND GENOMIC MEDICINE * CT Abdomen [...] before Otherwise unremarkable CT abdomen and pelvis [facility]-[id number] Procedure Note Hm Interface, Radiology Results Incoming [...] before Otherwise unremarkable CT abdomen and pelvis [facility]-[id number] Performing Organization Address City/State/Zipcode Phone Number [facility] [address] [place] [address] * C difficile toxin (08/19/2018 8:01 PM CDT) Clostridium Positive for C. difficile [facility] DEPARTMENT difficile toxin toxin (A) OF PATHOLOGY Comment: AND [facility] Specimen Information MEDICINE Specimen Source: Stool Specimen Site: Not otherwise specified Specimen Stool - Not otherwise specified Performing Organization Address City/[facility]/Zipcode Phone Number [address] [address] PATHOLOGY AND GENOMIC MEDICINE * hCG qualitative, urine screen (08/17/2018 10:21 PM CDT) hCG Negative Negative [facility] qualitative, Comment: DEPARTMENT OF urine The manufacturers stated PATHOLOGY AND sensitivity of HcG test for GENOMIC serum is >/=10 MEDICINE mIU/ml and urine is >/=20mIU/ml. Specimen Urine Performing Organization Address City/State/Zipcode Phone Number [facility] DEPARTMENT OF [address] [place] 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
--- OUTSIDE RECORDS SUMMARY | 2019-07-10 19:47 | XMS REPORT | Clinical Summary ---
Author Author [facility] Address Unknown Phone Unavailable Care Team Providers Care Relations Coordinator Name Role Phone Cara Durand MD PCP [...] Not on file Results Not on fileafter 07/09/2018 Insurance Payer Benefit Subscriber ID Type Phone Address Plan / Group [facility] xxxxxxxxxxxxx [phone] [facility] [address] (Home) [place] [address] Wero Roqueelle Personal/F Self [id number] (Home) [place] [address] Advance Directives For more information, please contact: [facility] [address] [place] [address] Date Inactivated Comments Code Status Date Activated 02/07/2017 6:32 PM Full Code 02/06/2017 7:44 PM This code status was determined by: Patient
[2019-07-10] MEDS ORDERED: SODIUM CHLORIDE 0.9% 1000ML 1,000 ML IV SCH ×2 (20:30)
[2019-07-10] MEDS ORDERED: PIPER-TAZ 3.375 GM 50 ML IV ONE (20:30)
[2019-07-10] MEDS ORDERED: LEVOFLOXACIN 750MG/D5W 150ML 150 ML IV ONE (20:38)
[2019-07-10] MEDS ORDERED: SODIUM CHLORIDE 0.9% 1000ML 2,000 ML ONE (20:38)
[2019-07-10] MEDS: LEVOFLOXACIN 750MG/D5W 150ML 150 ML IV SCH (21:20)
--- NOTE | 2019-07-10 21:29 | Diagnostic Imaging Report ---
EXAMINATION: CT of the abdomen and pelvis without contrast. TECHNIQUE: Spiral CT images of the abdomen and pelvis were performed from the lung bases to the lesser trochanters. No intravenous contrast was given per referring physician request. Coronal and sagittal reformatted images were obtained. COMPARISON: CT abdomen and pelvis with contrast 02/14/2019 CLINICAL HISTORY:Rectal bleeding, left lower quadrant abdominal pain DISCUSSION: ABSENCE OF INTRAVENOUS CONTRAST DECREASES SENSITIVITY FOR DETECTION OF FOCAL LESIONS AND VASCULAR PATHOLOGY. ABDOMEN/PELVIS: LOWER THORAX: Groundglass opacity compatible with subsegmental atelectasis laterally within the right lower lobe, improved relative to 02/14/2019. Similar opacity in the lingula is unchanged. HEPATOBILIARY:No focal hepatic lesions. No biliary ductal dilation. The gallbladder is normal. SPLEEN: No splenomegaly. PANCREAS: No focal masses or ductal dilatation. ADRENALS: No adrenal nodules. KIDNEYS/URETERS: Left renal cyst is again noted, though is less conspicuous on the current study in the absence of intravenous contrast. No hydronephrosis or calculus. PELVIC ORGANS/BLADDER: Urinary bladder is collapsed and poorly evaluated. Uterus is not identified and has presumably been resected. No adnexal mass. PERITONEUM/RETROPERITONEUM: No free air or fluid. LYMPH NODES: No pelvic sidewall, retroperitoneal, or mesenteric lymphadenopathy. VESSELS: Limited evaluation without intravenous contrast. The abdominal aorta is nonaneurysmal. GI TRACT: Gastric band apparatus encircles the proximal stomach, with reservoir in the left upper quadrant subcutaneous fat. The large bowel shows no evidence of distention or wall thickening. The appendix is not definitively identified. No right lower quadrant inflammation. There is no small bowel dilatation to suggest obstruction. BONES AND SOFT TISSUES: No focal soft tissue abnormalities. No osseous destructive lesion. Mild degenerative disc changes and facet arthropathy of the lower lumbar spine. IMPRESSION: No acute intra-abdominal or pelvic CT abnormalities. Signed by: Dr. Toby Jones M.D. on 07/10/2019 9:25 PM
--- NOTE | 2019-07-10 21:31 | Diagnostic Imaging Report ---
EXAMINATION: PA and lateral views of the chest. COMPARISON: Chest radiograph 12/09/2018 CLINICAL HISTORY: Chest and abdominal pain DISCUSSION: Lines/tubes: None. Lungs: The lungs are well inflated and clear. There is no evidence of pneumonia or pulmonary edema. Pleura: There is no pleural effusion or pneumothorax. Heart and mediastinum: The cardiomediastinal silhouette is normal. Bones and soft tissues: No acute bony abnormalities. Gastric band apparatus is noted in the upper abdomen. IMPRESSION: No acute cardiopulmonary abnormalities. Signed by: Dr. Toby Jones M.D. on 07/10/2019 9:27 PM
[2019-07-10] MEDS ORDERED: PIPER-TAZ 3.375 GM 50 ML ONE (21:55)
[2019-07-10] MEDS ORDERED: ONDANSETRON HCL INJ 2MG/ML 2ML 2 MG/ML VIAL ONE (21:56)
[2019-07-10] MEDS ORDERED: ONDANSETRON HCL INJ 2MG/ML 2ML 2 MG/ML VIAL IV PRN (22:00)
[2019-07-10] MEDS ORDERED: D5.45%NS/KCL 20MEQ 1,000 ML IV SCH (22:00)
--- OUTSIDE RECORDS SUMMARY | 2019-07-10 22:00 | XMS REPORT | Clinical Summary ---
Author Author [facility] Address Unknown Phone Unavailable Care Team Providers Care Medical Sales Specialist Name Role Phone Cara Durand MD PCP [...] ID Type Phone Address Plan / Group [facility] xxxxxxxxxxxxx [phone] [facility] [address] Ke[address] lagunas (Home) [place] [address] Wero Roqueelle Personal/F Self [id number] Keiry lagunas (Home) [place] [address] Advance Directives For more information, please contact: [facility] [address] [place] [address] Date Inactivated Comments Code Status Date Activated 02/07/2017 6:32 PM Full Code 02/06/2017 7:44 PM This code status was determined by: Patient
--- OUTSIDE RECORDS SUMMARY | 2019-07-10 22:00 | XMS REPORT | Clinical Summary ---
Author Author [facility] Organization [facility] Address Unknown Phone Unavailable Care Team Providers Care Bond Clerk Name Role Phone Cara Durand MD PCP [...] within the time period is included. Pathologist [facility] Estimated GFR >=90 mL/min/1.73 m2 [place] Comment: [facility] rpretation G1 >=90 Normal or high G2 60-89Mildly decreased [id number] Mildly to moderately decreased [id number] Moderately to severely decreased G4 15-29Severely decreased G5 <15Kidney failure The eGFR was calculated using the Chronic Kidney Disease Epidemiology Collaboration (CKD-EPI) equation. Interpretation is based on recommendations of the National Kidney Foundation-Kidney Disease Outcomes Quality Initiative (NKF-KDOQI) published in 2014. Specimen Plasma specimen Performing Organization Address City/State/Zipcode [place] [address] [place] [address] PATHOLOGY AND GENOMIC MEDICINE [facility] [address] [place] [address] [facility] * CBC with platelet and differential (07/01/2019 7:25 AM CDT) Only the most recent of 6 results within the time period is included. Pathologist [facility] WBC 4.94 4.50 - 11.00 k/uL [facility] RBC 4.67 4.20 - 5.50 m/uL [facility] HGB 13.1 12.0 - 16.0 g/dL [facility] HCT 42.3 37.0 - 47.0 % [facility] MCV 90.6 82.0 - 100.0 fL [facility] MCH 28.1 27.0 - 34.0 pg [facility] MCHC 31.0 31.0 - 37.0 g/dL [facility] RDW - SD 46.1 37.0 - 55.0 fL [facility] MPV 9.0 8.8 - 13.2 fL [facility] Platelet count 220 150 - 400 k/uL [facility] Nucleated RBC 0.00 /100 WBC [facility] Neutrophils 70.2 (H) 39.0 - 69.0 % [facility] Lymphocytes 21.1 (L) 25.0 - 45.0 % [facility] Monocytes 5.5 0.0 - 10.0 % [facility] Eosinophils 2.2 0.0 - 5.0 % [facility] Basophils 0.6 0.0 - 1.0 % [facility] Specimen Performing Organization Address City/[facility] Phone Number [address] [place] [address] PATHOLOGY AND GENOMIC MEDICINE [address] * Basic metabolic panel (07/01/2019 7:25 AM CDT) Only the most recent of 2 results within the time period is included. Sodium 140 135 - 148 mEq/L [facility] Potassium 3.9 3.5 - 5.0 mEq/L [facility] Chloride 107 98 - 112 mEq/L [facility] CO2 24 24 - 31 mEq/L [facility] Anion gap 9@ANIO 7 - 15 mEq/L [facility] BUN 8 6 - 20 mg/dL [facility] Creatinine 0.50 0.50 - 0.90 mg/dL [facility] Glucose 96 65 - 99 mg/dL [facility] Calcium 9.2 8.3 - 10.2 mg/dL [facility] Specimen Plasma specimen Performing Organization Address City/[facility] Phone Number [address] [place] [address] PATHOLOGY AND GENOMIC MEDICINE [address] * Comprehensive metabolic panel (06/30/2019 6:06 AM CDT) Only the most recent of 3 results within the time period is included. Sodium 139 135 - 148 mEq/L [facility] Potassium 4.0 3.5 - 5.0 mEq/L [facility] Chloride 108 98 - 112 mEq/L [facility] CO2 23 (L) 24 - 31 mEq/L [facility] Anion gap 8@ANIO 7 - 15 mEq/L [facility] BUN 17 6 - 20 mg/dL [facility] Creatinine 0.50 0.50 - 0.90 mg/dL [facility] Glucose 100 (H) 65 - 99 mg/dL [facility] Calcium 8.8 8.3 - 10.2 mg/dL [facility] Protein 6.5 6.3 - 8.3 g/dL [place] Comment: [facility] 4.6-7.0 g/dL 1 week 4.4-7.6 g/dL 7 months-1year 5.1-7.3 g/dL 1-2 years5.6-7 .5 g/dL >3 years6.0-8 .0 g/dL 18-150 6.3-8.3 g/dL Albumin 3.6 3.5 - 5.0 g/dL [facility] A/G ratio 1.2 0.7 - 3.8 [facility] Alkaline 122 (H) 35 - 104 U/L [place] phosphatase [facility] AST 16 10 - 35 U/L [facility] ALT 17 5 - 50 U/L [facility] Total bilirubin 0.2 0.0 - 1.2 mg/dL [facility] Specimen Plasma specimen Performing Organization Address City/State/Zipcode [place] Number [place] [address] [address] [place] [id number] PATHOLOGY AND GENOMIC MEDICINE [facility] [address] [place] [address] * XR Chest 2 Vw (06/30/2019 1:36 AM CDT) Specimen Narrative Performed At EXAMINATION: XR CHEST 2 VW [facility] CLINICAL HISTORY: Coughnew onset COMPARISON:06/12/2017. IMPRESSION: The lungs are clear. No pleural effusion or pneumothorax. Cardiac silhouette is borderline enlarged. Degenerative spine changes. No acute osseous abnormalities. [facility]-[id number] Procedure Note Interface, Radiology Results Incoming - 06/30/2019 1:44 AM CDT EXAMINATION: XR CHEST 2 VW CLINICAL HISTORY: Cough new onset COMPARISON: 06/12/2017. IMPRESSION: The lungs are clear. No pleural effusion or pneumothorax. Cardiac silhouette is borderline enlarged. Degenerative spine changes. No acute osseous abnormalities. [facility]-[id number] Performing Organization Address City/[facility]/Zipcode Phone Number [address] [address] * Blood culture, aerobic & anaerobic (06/30/2019 1:18 AM CDT) Only the most recent of 2 results within the time period is included. Blood culture No growth after 5 days of [place] isolate incubation. [facility] Comment: HOSPITAL Specimen Information Specimen Source: Blood Specimen Site: Peripheral Specimen Blood - Peripheral Performing Organization Address City/State/Zipcode Phone Number [facility] DEPARTMENT OF [address] [place] [address] PATHOLOGY AND GENOMIC MEDICINE [place] [address] HOSPITAL * Occult blood, stool (06/30/2019 1:00 AM CDT) Occult blood, Positive for Occult blood (A) [place] stool Comment: [facility] CLEAR Specimen Information [facility] Specimen Source: Stool Specimen Site: Nonpreserved Specimen Stool - Nonpreserved Performing Organization Address [facility] Cliniccori Phone Number [facility] [place] [id number] [place] [address] [place] [address] PATHOLOGY AND GENOMIC MEDICINE [place] [facility] CLEAR [address] [place] [address] * CT Abdomen Pelvis W Contrast (06/30/2019 12:03 AM CDT) Only the most recent of 2 results within the time period is included. Specimen Narrative Performed At CT ABDOMEN PELVIS W [facility]AST [facility] CLINICAL INDICATION:LLQ pain TECHNIQUE: Multidetector CT of [...] opacities at bilateral lung bases, likely infectious/inflammatory. [facility]-[id number] Procedure Note Interface, Radiology Results Incoming - [...] opacities at bilateral lung bases, likely infectious/inflammatory. [facility]-[id number] Performing Organization Address City/State/Zipcode Phone Number [facility] [address] [place] [address] * Urinalysis screen and microscopy, with reflex to culture (06/29/2019 11:55 PM CDT) Only the most recent of 2 results within the time period is included. Specimen site Clean catch [facility] Color, UA Yellow [facility] Appearance, UA Clear [facility] Specific 1.027 1.001 - 1.035 [place] gravity, UA [facility] pH, UA 5.0 5.0 - 8.5 [facility] Protein, UA Negative Negative [facility] Glucose, UA Negative Negative [facility] Ketones, UA Negative Negative [facility] Bilirubin, UA Negative Negative [facility] Blood, UA Negative Negative [facility] Nitrite, UA Negative Negative [facility] Urobilinogen, Negative <2.0 [facility] Leukocyte Negative Negative [place] esterase, UA [facility] Epithelial Few Few /HPF [place] cells, [facility] WBC, UA 0-5 0 - 4 /HPF [facility] RBC, UA 0-5 0 - 5 /HPF [facility] Bacteria, UA None seen None seen [facility] Yeast, UA None seen [facility] Yeast with None seen [place] pseudohyphae, [facility] Specimen Urine Performing Organization Address City/[facility]code Phone Number [facility] [place] [address] [place] [address] PATHOLOGY AND GENOMIC MEDICINE [address] [place] [address] [facility] * Urine culture (06/29/2019 11:55 PM CDT) Only the most recent of 2 results within the time period is included. Urine culture SEE COMMENTComment: [place] Bacteriuria screen negative. [facility] Specimen Urine Performing Organization Address City/[facility] Phone Number [facility] [place] [address] [address] [address] PATHOLOGY AND [facility] MEDICINE [facility] [address] * Partial thromboplastin time, activated (06/29/2019 11:02 PM CDT) PTT 31.5 23.0 - 36.0 sec [place] Comment: JOSE QUEVEDO PTT therapeutic range for [facility] unfractionated heparin is 61.0-112.0 seconds which corresponds to Anti-Xa 0.3-0.7 U/ml. Specimen Blood Performing Organization Address [facility] Phone Number [facility] DEPARTMENT OF [facility] [place] [address] PATHOLOGY [address] [place] [address] [address] * Prothrombin time with INR (06/29/2019 11:02 PM CDT) Prothrombin 12.4 11.5 - 14.5 sec [facility] INR 1.0 [place] Comment: JOSE QUEVEDO The International Normalized [facility] Ratio (INR) is a therapeutic monitoring tool for patients who are stable on oral anticoagulant therapy. An INR of 2.0-3.0 is suggested for deep vein thrombosis/pulmonary embolism. Specimen Blood Performing Organization Address [facility] Phone Number [facility] DEPARTMENT OF [facility] [address] [place] [address] PATHOLOGY AND [place] [address] [address] * Type and screen (06/29/2019 11:02 PM CDT) ABO grouping O [facility] Rh type POS [facility] Antibody screen NEG [facility] Specimen Performing Organization Address [facility] Phone Number [facility] [place] [address] [place] [address] PATHOLOGY AND [facility] MEDICINE [place] [address] [address] * Lipase level (06/29/2019 11:02 PM CDT) Only the most recent of 2 results within the time period is included. Lipase 44 13 - 60 U/L [facility] Specimen Plasma specimen Performing Organization Address City/State/Zipcode Phone Number [facility] [place] [address] [place] [address] PATHOLOGY AND GENOMIC MEDICINE [facility]ON[facility] CLE[place] [address] [place] [address] [facility] * Hemoglobin & hematocrit (08/22/2018 5:02 AM CDT) HGB 14.3 12.0 - 16.0 g/dL [facility] DEPARTMENT OF PATHOLOGY AND GENOMIC MEDICINE HCT 46.1 37.0 - 47.0 % [facility] DEPARTMENT OF PATHOLOGY AND GENOMIC MEDICINE Specimen Blood Performing Organization Address City/State/Zipcode Phone Number [facility] [place] [address] [place] [address] PATHOLOGY AND GENOMIC MEDICINE * CT Abdomen [...] before Otherwise unremarkable CT abdomen and pelvis [facility]-[id number] Procedure Note Hm Interface, Radiology Results Incoming [...] before Otherwise unremarkable CT abdomen and pelvis [facility]-[id number] Performing Organization Address City/State/Zipcode Phone Number [facility] [address] [place] [address] * C difficile toxin (08/19/2018 8:01 PM CDT) Clostridium Positive for C. difficile [facility] DEPARTMENT difficile toxin toxin (A) OF PATHOLOGY Comment: AND [employer] Specimen Information MEDICINE Specimen Source: Stool Specimen Site: Not otherwise specified Specimen Stool - Not otherwise specified Performing Organization Address City/[facility]/Zipcode Phone Number [address] [address] PATHOLOGY AND GENOMIC MEDICINE * hCG qualitative, urine screen (08/17/2018 10:21 PM CDT) hCG Negative Negative [facility] qualitative, Comment: DEPARTMENT OF urine The manufacturers stated PATHOLOGY AND sensitivity of HcG test for GENOMIC serum is >/=10 MEDICINE mIU/ml and urine is >/=20mIU/ml. Specimen Urine Performing Organization Address City/State/Zipcode Phone Number [facility] DEPARTMENT OF [address] [place] [address] [place] [address] PATHOLOGY AND GENOMIC MEDICINE after 07/09/2018 Additional Health Concerns Resolved Time Infection Noted Time C.Difficile (E) 08/21/2018 8:06 AM CDT Insurance Type Payer Benefit Subscriber ID Effective Phone Address Plan / Dates Group Exchange [employer] xxxxxxxxxxxxx [id number] EXCHANGE [facility] MARKET[employer] E Advance Directives For more information, please contact: [phone] Patient [employer] Supervisor Explanation Type Date Recorded Advance Directives, 06/12/2017 5:03 PM Living Will and Medical Power of Green Marketer Date Inactivated Comments Code Status Date Activated 07/01/2019 8:39 PM Full Code 06/30/2019 11:49 AM Code Status decision reached by: Patient 06/30/2019 11:49 AM Full Code 06/30/2019 12:54 AM Code Status decision reached by: Patient
[2019-07-10] MEDS ORDERED: PROMETHAZINE 12.5MG/ NACL 0.9% 12.5 MG/50 ML BAG IV PRN (23:45)
[2019-07-10] MEDS ORDERED: DEXTROSE 5%/0.225% SOD CHL 1,000 ML IV SCH (23:45)
[2019-07-10] MEDS: MORPHINE SULFATE INJ 4 MG/ML INJ 1ML IV PRN (23:52)
[2019-07-11] VITALS (12 sets, daily range): BP systolic 92–121; BP diastolic 55–86
[2019-07-11] MEDS ORDERED: DEXTROSE 5%/0.45% SOD CHL 1,000 ML IV ONE (00:15)
[2019-07-11 00:27] LABS: BASOPHILS % 0.3 % (0.0-1.0); EOSINOPHILS # (AUTO) 0.1 (0.0-0.4); EOSINOPHILS % 1.2 % (0.0-6.0); HEMATOCRIT 38.4 % (34.2-44.1); HEMOGLOBIN 12.2 g/dL (12.0-16.0); LYMPHOCYTES # (AUTO) 1.2 (1.0-3.2); LYMPHOCYTES % 17.6 % (18.0-39.1); MEAN CORPUSCULAR HEMOGLOBIN 27.7 pg (28-32); MEAN CORPUSCULAR HGB CONC 31.8 g/dL (31-35); MEAN CORPUSCULAR VOLUME 87.1 fL (81-99); MONOCYTES # (AUTO) 0.4 (0.2-0.8); MONOCYTES % 6.5 % (4.4-11.3); NEUTROPHILS % 73.7 % (38.7-80.0); PLATELET COUNT 244 x10e3/uL (140-360); RED BLOOD COUNT 4.41 x10e6/uL (3.6-5.1)
[2019-07-11] MEDS: MORPHINE SULFATE INJ 4 MG/ML INJ 1ML IV PRN ×6 (03:14→20:23)
[2019-07-11] MEDS: PIPER-TAZ 3.375 GM 50 ML IV SCH ×5 (04:00→17:17)
[2019-07-11 05:25] LABS: BASOPHILS % 0.6 % (0.0-1.0); EOSINOPHILS # (AUTO) 0.1 (0.0-0.4); EOSINOPHILS % 2.7 % (0.0-6.0); HEMATOCRIT 37.3 % (34.2-44.1); HEMOGLOBIN 11.7 g/dL (12.0-16.0); LYMPHOCYTES # (AUTO) 1.2 (1.0-3.2); LYMPHOCYTES % 23.7 % (18.0-39.1); MEAN CORPUSCULAR HEMOGLOBIN 28.1 pg (28-32); MEAN CORPUSCULAR HGB CONC 31.4 g/dL (31-35); MEAN CORPUSCULAR VOLUME 89.4 fL (81-99); MONOCYTES # (AUTO) 0.4 (0.2-0.8); MONOCYTES % 7.6 % (4.4-11.3); NEUTROPHILS # (AUTO) 3.3 (2.1-6.9); NEUTROPHILS % 64.4 % (38.7-80.0); PLATELET COUNT 237 x10e3/uL (140-360); RED BLOOD COUNT 4.17 x10e6/uL (3.6-5.1)
[2019-07-11 05:48] LABS: ALANINE AMINOTRANSFERASE 15 IU/L (0-55); ALKALINE PHOSPHATASE 108 IU/L (40-150); ANION GAP 12.8 mmol/L (8-16); BLOOD UREA NITROGEN 15 mg/dL (7-26); BUN/CREATININE RATIO 22 (6-25); CALCIUM 8.4 mg/dL (8.4-10.2); CARBON DIOXIDE 23 mmol/L (22-29); CHLORIDE 108 mmol/L (98-107); CREATININE, SERUM 0.68 mg/dL (0.57-1.11); EST GLOMERULAR FILTRATION RATE > 60 ML/MIN (60-); GLUCOSE 107 mg/dL (74-118); POTASSIUM 3.8 mmol/L (3.5-5.1); SODIUM 140 mmol/L (136-145)
[2019-07-11 11:09] LABS: BASOPHILS % 0.4 % (0.0-1.0); EOSINOPHILS # (AUTO) 0.1 (0.0-0.4); HEMATOCRIT 40.9 % (34.2-44.1); HEMOGLOBIN 13.1 g/dL (12.0-16.0); LYMPHOCYTES % 21.6 % (18.0-39.1); MEAN CORPUSCULAR HEMOGLOBIN 28.5 pg (28-32); MEAN CORPUSCULAR VOLUME 88.9 fL (81-99); MONOCYTES # (AUTO) 0.3 (0.2-0.8); MONOCYTES % 6.8 % (4.4-11.3); NEUTROPHILS # (AUTO) 3.2 (2.1-6.9); NEUTROPHILS % 67.3 % (38.7-80.0); PLATELET COUNT 257 x10e3/uL (140-360); RED CELL DISTRIBUTION WIDTH 14.2 % (11.7-14.4)
[2019-07-11] MEDS: DEXTROSE 5%/0.45% SOD CHL 1,000 ML IV SCH ×2 (12:24→20:16)
--- NOTE | 2019-07-11 14:01 | History and Physical ---
PRIMARY CARE PHYSICIAN: Dr. Cara Durand with [facility]. CONSULTING PHYSICIAN: Dr. Contreras for GI. CHIEF COMPLAINT: Fever and lower GI bleed with abdominal pain. HISTORY OF PRESENT ILLNESS: This is a 48-year-old female with history of diverticulosis, presented to the ER with complaints of fever and lower GI bleed. She reports being admitted at [facility] on June 29 and was treated for pneumonia and diverticulitis and was discharged on Z-Duc on July 01, 2019. She reports yesterday she had finished her Z-Duc. Antibiotics ordered and started having fever which was increasing as high as 101.5 degrees Fahrenheit. She reports nausea, cough productive with white sputum, abdominal pain, bright red blood in the stool, chest pain, and dyspnea. She denies any vomiting, dizziness, palpitations, change in LOC, or numbness in her arms or neck. In the ER, chest x-ray and CT abdomen were unremarkable and she was admitted for further management. PAST MEDICAL HISTORY: Psoriasis and diverticulosis. PAST SURGICAL HISTORY: She has partial bowel resection, gastric band surgery, appendectomy, hysterectomy, and tonsillectomy. FAMILY HISTORY: Mother has thyroid problems. Father, unknown. SOCIAL HISTORY: She denies any tobacco, alcohol, or illicit drug use. REVIEW OF SYSTEMS: GENERAL: No acute distress. HEENT: No mouth sores. RESPIRATORY: Reports shortness of breath and cough. CARDIOVASCULAR: No palpitations, but reports chest pain with cough. GI: Reports abdominal pain and nausea with bright red stool. NEUROLOGIC: She is alert and oriented. MUSCULOSKELETAL: She has no pallor, extremity pain, or edema. PHYSICAL EXAMINATION: VITAL SIGNS: Temperature 97.8, pulse 71, blood pressure 92/55, respirations 16, and SpO2 of 98% on room air. GENERAL: She is alert, awake, and oriented x3. HEENT/NECK: Neck is supple. PERRLA. LUNGS: With decreased breath sounds. Productive cough. HEART: Regular rate and rhythm. GASTROINTESTINAL: Abdomen is soft, but tender to palpation. MUSCULOSKELETAL: Active range of motion with no edema and normal capillary refills. NEUROLOGY: Alert, awake, and oriented x3. IMAGING: Chest x-ray and CT abdomen which were unremarkable. LABORATORY DATA: Blood culture was sent. IMPRESSION: 1. Fever of unknown source. 2. Gastrointestinal bleed. 3. History of diverticulitis. 4. History of pneumonia. 5. History of psoriasis. PLAN: The patient was started on Levaquin and Zosyn IV. We will continue with pain management and nausea medicine as needed. We will keep n.p.o. until evaluated by GI for the acute GI bleed. We will monitor H and H closely. Latest hemoglobin is 11.7. Further recommendations will follow. Dictated by APRIL Juarez Rafael Khan MD MY/MODL /[id number]
[2019-07-11] MEDS ORDERED: ALBUTEROL/IPRATROPIUM 3 ML NEB NEB PRN (16:15)
[2019-07-11 19:32] LABS: BASOPHILS % 0.7 % (0.0-1.0); EOSINOPHILS # (AUTO) 0.2 (0.0-0.4); EOSINOPHILS % 3.5 % (0.0-6.0); HEMATOCRIT 41.1 % (34.2-44.1); HEMOGLOBIN 12.6 g/dL (12.0-16.0); LYMPHOCYTES # (AUTO) 0.9 (1.0-3.2); LYMPHOCYTES % 15.7 % (18.0-39.1); MEAN CORPUSCULAR HEMOGLOBIN 27.8 pg (28-32); MEAN CORPUSCULAR HGB CONC 30.7 g/dL (31-35); MEAN CORPUSCULAR VOLUME 90.5 fL (81-99); MONOCYTES # (AUTO) 0.4 (0.2-0.8); MONOCYTES % 7.1 % (4.4-11.3); NEUTROPHILS # (AUTO) 4.3 (2.1-6.9); NEUTROPHILS % 72.5 % (38.7-80.0); PLATELET COUNT 222 x10e3/uL (140-360); RED BLOOD COUNT 4.54 x10e6/uL (3.6-5.1); RED CELL DISTRIBUTION WIDTH 14.1 % (11.7-14.4)
[2019-07-11] MEDS: LEVOFLOXACIN 750MG/D5W 150ML 150 ML IV SCH (20:16)
--- NOTE | 2019-07-12 00:13 | Consultation ---
DATE OF CONSULTATION: 07/11/2019 GI consult note. REFERRING PHYSICIAN: Rafael Khan MD. REASON FOR CONSULT: Lower GI bleeding x1 day. HISTORY OF PRESENTING ILLNESS: A 48 years old female with past medical history of obesity status post gastric sleeve surgery couple of years ago, also has a history of recurrent diverticulitis, status post segmental colon resection, who was admitted earlier this month in [facility]. She was treated there for pneumonia. She was discharged home on Z-Duc. Apparently, the patient's respiratory symptoms did not improve. She continues to spike fever. She also started noticing passing bright red blood per rectum, mostly on the wipe as well as seeing the large amount of blood on the ball. This prompted her to seek medical assistance. She ended up in the emergency room here in [facility] [place]. She was noted to have a fever of 101.5. Hemodynamically stable. Not orthostatic or tachycardic. Blood work revealed hemoglobin 11.7, repeat climbed up to 13.1. White count was noted normal. Electrolytes were also pretty much unremarkable. CT of the abdomen and pelvis without contrast showed no acute intraabdominal or pelvic pathology. The patient has had a blood culture drawn, which is not showing any growth in 24 hours. Chest x-ray also did not show any acute cardiopulmonary process. However, the patient is empirically being treated with broad-spectrum intravenous antibiotic. She did not spike any fever today. REVIEW OF SYSTEMS: Twelve point system reviewed. Symptomatology is limited as per HPI. PAST MEDICAL HISTORY: Diverticulosis, psoriasis, and obesity. PAST SURGICAL HISTORY: Segmental colon resection, a gastric sleeve/band surgery, appendectomy, hysterectomy, and tonsillectomy. FAMILY HISTORY: Negative for any GI or ENVIRONMENTAL MARKETING REPRESENTATIVE malignancies. SOCIAL HISTORY: , lives with her . No smoking, alcohol, or any illicit drug use. ALLERGIES: NO KNOWN DRUG ALLERGIES. HOME MEDICATION: Dicyclomine, Zofran, and metronidazole. Inpatient medication list reviewed as per JAN. She is on intravenous levofloxacin as well as Zosyn. PHYSICAL EXAMINATION: VITAL SIGNS: Temperature 98.8, pulse 69, respirations 15, blood pressure 117/69, oxygen saturation 98% on room air. GENERAL: Morbidly obese body habitus, not in any acute distress. HEENT: Oral mucosa is moist. Anicteric sclerae. CARDIOVASCULAR SYSTEM: S1 and S2. Regular. LUNGS: Bilaterally grossly clear, poorly audible breath sounds. ABDOMEN: Soft, abdominal obesity, nondistended, nontender. No palpable mass or hernia. Abdominal examination is quite limited secondary to obese belly. No mass or hernia. Positive bowel sounds. EXTREMITIES: Warm. No leg edema. LABORATORY DATA: Electrolytes grossly normal, liver enzymes normal. BUN 15, creatinine 0.68. WBC 5.94, hemoglobin 12.6, hematocrit 41.1, and platelet count 222. CT of the abdomen and pelvis without contrast showed no acute intraabdominal or pelvic CT abnormalities. Chest x-ray showed no acute cardiopulmonary process. IMPRESSION: 1. Fever, unclear etiology, currently being treated with broad-spectrum intravenous antibiotic. The patient is not spiking fever anymore. 2. Lower gastrointestinal bleeding seems to be hemorrhoidal, on my digital rectal examination, this did not show any blood on the gloved finger, rectal wall is completely empty. No mass or palpable hemorrhoids. PLAN: From GI standpoint, I do not think the patient is having any active GI bleeding. She has noticed bright red blood per rectum on the wipe, which is likely due to hemorrhoids. I recommend a high-fiber diet, sitz bath and Anusol rectal suppositories if the patient continues to have hemorrhoidal bleeding. From my site, the patient should be allowed to eat solid food. Continue rest of the medical management as per primary team. The patient also told me that she has had a colonoscopy couple of years ago to follow up on diverticulosis and segmental colon resection. I thank Dr. Khan for allowing me to participate in the care of this patient. Ronny Holland MD SA/AZUL /[id number]
[2019-07-12] MEDS: MORPHINE SULFATE INJ 4 MG/ML INJ 1ML IV PRN ×2 (00:44→05:30)
[2019-07-12] MEDS: PIPER-TAZ 3.375 GM 50 ML IV SCH ×3 (00:44→12:12)
[2019-07-12 00:53] LABS: BASOPHILS % 0.5 % (0.0-1.0); EOSINOPHILS # (AUTO) 0.2 (0.0-0.4); HEMATOCRIT 40.5 % (34.2-44.1); HEMOGLOBIN 13.1 g/dL (12.0-16.0); LYMPHOCYTES # (AUTO) 0.9 (1.0-3.2); LYMPHOCYTES % 14.3 % (18.0-39.1); MEAN CORPUSCULAR HEMOGLOBIN 28.1 pg (28-32); MEAN CORPUSCULAR HGB CONC 32.3 g/dL (31-35); MONOCYTES # (AUTO) 0.4 (0.2-0.8); MONOCYTES % 6.1 % (4.4-11.3); NEUTROPHILS # (AUTO) 4.5 (2.1-6.9); NEUTROPHILS % 75.4 % (38.7-80.0); PLATELET COUNT 238 x10e3/uL (140-360); RED BLOOD COUNT 4.66 x10e6/uL (3.6-5.1)
[2019-07-12 01:00] LABS: MEAN CORPUSCULAR VOLUME 86.9 fL (81-99)
[2019-07-12 03:43] VITALS: BP 119/77
[2019-07-12 05:20] LABS: BASOPHILS % 0.2 % (0.0-1.0); EOSINOPHILS # (AUTO) 0.2 (0.0-0.4); EOSINOPHILS % 4.1 % (0.0-6.0); HEMATOCRIT 37.8 % (34.2-44.1); HEMOGLOBIN 11.9 g/dL (12.0-16.0); LYMPHOCYTES % 18.6 % (18.0-39.1); MEAN CORPUSCULAR HEMOGLOBIN 27.9 pg (28-32); MEAN CORPUSCULAR HGB CONC 31.5 g/dL (31-35); MEAN CORPUSCULAR VOLUME 88.5 fL (81-99); MONOCYTES # (AUTO) 0.5 (0.2-0.8); MONOCYTES % 8.4 % (4.4-11.3); NEUTROPHILS # (AUTO) 3.7 (2.1-6.9); NEUTROPHILS % 68.1 % (38.7-80.0); PLATELET COUNT 238 x10e3/uL (140-360); RED BLOOD COUNT 4.27 x10e6/uL (3.6-5.1); RED CELL DISTRIBUTION WIDTH 14.1 % (11.7-14.4)
[2019-07-12] MEDS: DEXTROSE 5%/0.45% SOD CHL 1,000 ML IV SCH (06:06)
--- NOTE | 2019-07-12 07:00 | NUR ---
Pt received resting in bed with at bedside. Alert and oriented x4. Oriented to staff and surroundings. Encouraged to press call urbina if help needed. Pt verbalized understanding of teaching. Call urbina within reach. Will monitor
[2019-07-12 07:40] VITALS: BP 138/83
[2019-07-12 11:30] VITALS: BP 121/68
--- NOTE | 2019-07-12 12:49 | NUR ---
Pt given discharge instructions regarding meds, diet, activities, s/s to report and follow up appointment with GI & PCP. Pt and verbalized understanding of teaching. Leaving via wheelchair to private car.
--- NOTE | 2019-07-12 13:03 | NUR ---
Pt left in wheelchair to 's car
--- NOTE | 2019-07-13 08:01 | Discharge Summary ---
PRIMARY CARE DOCTOR: Dr. Ladarius Marroquin with [facility]. CONSULTING PHYSICIAN: Moshe Contreras MD, with GI doctor. CHIEF COMPLAINT: Fever and lower GI bleed. ALLERGIES: NO KNOWN ALLERGIES. FINAL DIAGNOSES: 1. Fever of unknown source, likely due to viral infection. 2. GI bleed. Likely due to internal hemorrhoids. 3. History of diverticulitis. 4. History of recent pneumonia. 5. History of psoriasis. IMAGING STUDIES: CT abdomen and pelvis which was unremarkable. HISTORY: Per history and physical. HOSPITAL COURSE: This is a 48-year-old female with a history of diverticulosis with partial colon resection and recent pneumonia, presented with a fever and lower GI bleed. She was recently admitted and discharged from [facility]. She has completed a treatment of antibiotics, a chest x-ray and CT abdomen and pelvis were unremarkable. Blood cultures were sent and are negative so far. She has not had any more fever since arrival. No shortness of breath, no signs of diverticulitis. Since she has been stable, we will discontinue all antibiotics and advance diet per GI orders. GI evaluated the patient and feels like, since she had a recent colonoscopy and colonoscopy at this time is not indicated. Recommended for sitz bath and preparation H treatment suppositories for treatment and follow up with GI Lisa. PHYSICAL EXAMINATION: GENERAL: Alert and oriented x3. No acute distress. LUNGS: Clear to auscultation. CARDIOVASCULAR: Normal rate and rhythm. ABDOMEN: Soft and mild tenderness in the lower quadrants and tolerating diet. Normal bowel sounds. EXTREMITIES: Active range of motion. NEUROLOGIC: Alert, awake, and oriented x3. CONDITION AT DISCHARGE: Improved and stable. DISCHARGE MEDICATIONS: Please see medication reconciliation list. FOLLOWUP: 1. She needs to follow up with Dr. Ladarius Marroquin at [facility]. 2. She needs to follow up with her GI doctor at [facility] in 1 to 2 weeks. Please send a copy of this discharge summary to Dr. Durand at [facility]. Dictated by APRIL Juarez Yiching Tushar Khan MD MY/MODL /[id number] cc: [facility]
== END 2019-07-12 13:11 | disposition home or self-care (01) | DRG 866 ==
LOC: FSED 19:43 → ERHOLD 21:53 → IMCU 23:05
PROVIDERS: ADMIT Internal Medicine; ATTEND Internal Medicine
DX: B34.9 Viral infection, unspecified (principal); R50.9 Fever, unspecified; K64.8 Other hemorrhoids; Z87.01 Personal history of pneumonia (recurrent); Z90.49 Acquired absence of other specified parts of digestive tract; L40.9 Psoriasis, unspecified
CPT/HCPCS: 36415; 71046; 74176; 80053; 81003; 83605; 85025; 86850; 86900; 87040; 99284; J2270; J2405; J2543; J2550; J7030

== ENCOUNTER 2020-08-08 23:09 | Emergency (ER) | payer BC, OTHER ==
[~2020-08-08] VITALS: Ht 172.7 cm; Wt 131.1 kg
[2020-08-09] MEDS ORDERED: ONDANSETRON HCL INJ 2MG/ML 2ML 2 MG/ML VIAL IV STA ×2 (00:10→01:11)
[2020-08-09] MEDS ORDERED: KETOROLAC TROMETHAMINE 30 MG/ML VIAL IV STA (00:10)
[2020-08-09] MEDS ORDERED: SODIUM CHLORIDE 0.9% 50ML 50 ML ONE (00:41)
[2020-08-09] MEDS ORDERED: IOPAMIDOL 370 MG/ML 200 ML INFUS..BTL INJ ONE (00:41)
[2020-08-09] MEDS ORDERED: ONDANSETRON HCL INJ 2MG/ML 2ML 2 MG/ML VIAL ONE ×2 (00:42→01:20)
[2020-08-09] MEDS ORDERED: KETOROLAC TROMETHAMINE 30 MG/ML VIAL ONE (00:43)
[2020-08-09] MEDS ORDERED: MORPHINE SULFATE INJ 4 MG/ML INJ 1ML IV STA (01:15)
[2020-08-09] MEDS ORDERED: MORPHINE SULFATE INJ 4 MG/ML INJ 1ML ONE (01:21)
--- NOTE | 2020-08-09 01:39 | Diagnostic Imaging Report ---
EXAM: CT Abdomen and Pelvis WITH contrast INDICATION: ^abd pain ^[id number] ^[id number] COMPARISON: CT abdomen/pelvis dated 07/10/2019 TECHNIQUE: Abdomen and pelvis were scanned utilizing a multidetector helical scanner from the lung base to the pubic symphysis after administration of IV contrast. Coronal and sagittal reformations were obtained. Dose modulation, iterative reconstruction, and/or weight based adjustment of the mA/kV was utilized to reduce the radiation dose to as low as reasonably achievable. Routine protocol was performed. Scan was performed when during portal venous phase. IV CONTRAST: 100 mL of Isovue-370 ORAL CONTRAST: Water COMPLICATIONS: None RADIATION DOSE: Total DLP: 857.50 mGy*cm Estimated effective dose: (DLP x 0.015 x size factor) mSv CTDIvol has been reviewed. It is below the limits set by the Radiation Protocol Committee (RPC). FINDINGS: LINES and TUBES: Gastric lap band. LOWER THORAX: Unremarkable HEPATOBILIARY: No focal hepatic lesions. No biliary ductal dilation. GALLBLADDER: No radio-opaque stones or sludge. No wall thickening. SPLEEN: No splenomegaly. PANCREAS: No focal masses or ductal dilatation. ADRENALS: No adrenal nodules KIDNEYS/URETERS: Kidneys enhance symmetrically. No hydronephrosis. 1.8 cm left renal superior pole cyst. No stones. GI TRACT: No abnormal distention, wall thickening, or evidence of bowel obstruction. Appendix is not visualized. Gastric lap band in place with small sliding hiatal hernia PELVIC ORGANS/BLADDER: Unremarkable. LYMPH NODES: No lymphadenopathy. VESSELS: Unremarkable. PERITONEUM / RETROPERITONEUM: No free air or fluid. BONES: Lower lumbar spine degenerative changes. SOFT TISSUES: Unremarkable. IMPRESSION: 1. No acute inflammatory process in the abdomen/pelvis. Signed by: Dr. Elliott Lopez MD on 08/09/2020 1:36 AM
[2020-08-09] MEDS ORDERED: TYLENOL # 31 EA PO (02:04)
--- NOTE | 2020-08-09 02:10 | Emergency Department Note ---
History of Present Illnes History of Present Illness Chief Complaint: Abdominal Complaints History of Present Illness This is a 50 year old female presents with gradually increasing right- sided abdominal pain since 8 PM today. Patient's had multiple episodes of diverticulitis, and the patient states that this feels similar to her diverticulitis pain except that it's on the wrong side. The patient has had a total hysterectomy, gastric sleeve, appendectomy, and a colon resection after a ruptured diverticulum from diverticulitis. She's had nausea but no vomiting. No dysuria no hematuria. Last bowel movement was this evening before the onset of the pain and was "a little hard". She's had no cough sore throat runny nose congestion or lack of smell/taste. She's had no sick contacts. She is not eaten any known bad food. Core Drilling Supervisor Required: No Onset (how long ago): hour(s) Location: rt mid abdomen Quality: sharp Radiation: Reports non-radiation Severity: moderate Onset quality: gradual Duration (how long): hour(s) Timing of current episode: constant Progression: worsening Context: Denies trauma/injury Relieving factors: eating Exacerbating factors: other (lay on back or left side) Associated symptoms: Reports nausea/vomiting (N +, But no vomiting); Denies confusion, Denies chest pain, Denies cough, Denies diaphoresis, Denies fever/chills, Denies headaches, Denies loss of appetite, Denies malaise, Denies shortness of breath Past Medical/Family History Physician Review I have reviewed the patient's past medical and family history. Any updates have been documented here. Past Medical History Recent Fever: No New/Unexplained Change in Ment: No Past Medical History: GERD Other Medical History: ARTHRITIS DIVERTICOLOSIS Past Surgical History: Appendectomy, Hysterectomy, Bariatric Surgery, Colon Resection Other Surgery: tonsilectomy Social History Smoking Cessation: Never Smoker Any Illegal Drug Use: No Other Last Tetanus: UNK Review of Systems Review of Systems Constitutional: Denies chills, Denies diaphoresis, Denies fever, Denies weakness EENTM: Denies nose congestion, Denies throat pain Cardiovascular: Denies chest pain, Denies edema Respiratory: Reports no symptoms Gastrointestinal: Reports as per HPI Genitourinary: Denies dysuria, Denies hematuria Musculoskeletal: Denies back pain, Denies muscle pain Integumentary: Denies rash Neurological: Denies headache, Denies numbness Endocrine: Denies increased thirst, Denies increased urination Hematological/Lymphatic: Denies easy bleeding, Denies easy bruising Physical Exam Related Data Allergies: Coded Allergies: No Known Allergies (Unverified , 12/09/18) Physical Exam CONSTITUTIONAL Constitutional: Present well-developed, Present well-nourished HENT HENT: Present normocephalic, Present atraumatic, Present oropharynx clear/moist, Present nose normal EYES Eyes: Reports PERRL, Reports conjunctivae normal NECK Neck: Present ROM normal PULMONARY Pulmonary: Present effort normal, Present breath sounds normal CARDIOVASCULAR Cardiovascular: Present regular rhythm, Present heart sounds normal, Present capillary refill normal, Present normal rate GASTROINTESTINAL Abdominal: Present bowel sounds normal, Present tender (Tender rt mid abdomen at umbillical line. No Yen's), Present other; Absent distension, Absent guarding, Absent mass, Absent rebound, Absent left CVA tenderness, Absent right CVA tenderness GENITOURINARY SKIN Skin: Absent rash MUSCULOSKELETAL Musculoskeletal: Absent edema, Absent deformity, Absent tenderness NEUROLOGICAL Neurological: Present alert, Present oriented x 3, Present no gross motor or sensory deficits PSYCHOLOGICAL Psychological: Present mood/affect normal, Present judgement normal Results Laboratory Lab results reviewed: Yes Laboratory comments CMP WNL, WBC 7.8, UA negative Imaging Imaging Comments EXAM: CT Abdomen and Pelvis WITH contrast INDICATION: ^abd pain ^[id number] ^[id number] COMPARISON: CT abdomen/pelvis dated 07/10/2019 TECHNIQUE: Abdomen and pelvis were scanned utilizing a multidetector helical scanner from the lung base to the pubic symphysis after administration of IV contrast. Coronal and sagittal reformations were obtained. Dose modulation, iterative reconstruction, and/or weight based adjustment of the mA/kV was utilized to reduce the radiation dose to as low as reasonably achievable. Routine protocol was performed. Scan was performed when during portal venous phase. IV CONTRAST: 100 mL of Isovue-370 ORAL CONTRAST: Water COMPLICATIONS: None RADIATION DOSE: Total DLP: 857.50 mGy*cm Estimated effective dose: (DLP x 0.015 x size factor) mSv CTDIvol has been reviewed. It is below the limits set by the Radiation Protocol Committee (RPC). FINDINGS: LINES and TUBES: Gastric lap band. LOWER THORAX: Unremarkable HEPATOBILIARY: No focal hepatic lesions. No biliary ductal dilation. GALLBLADDER: No radio-opaque stones or sludge. No wall thickening. SPLEEN: No splenomegaly. PANCREAS: No focal masses or ductal dilatation. ADRENALS: No adrenal nodules KIDNEYS/URETERS: Kidneys enhance symmetrically. No hydronephrosis. 1.8 cm left renal superior pole cyst. No stones. GI TRACT: No abnormal distention, wall thickening, or evidence of bowel obstruction. Appendix is not visualized. Gastric lap band in place with small sliding hiatal hernia PELVIC ORGANS/BLADDER: Unremarkable. LYMPH NODES: No lymphadenopathy. VESSELS: Unremarkable. PERITONEUM / RETROPERITONEUM: No free air or fluid. BONES: Lower lumbar spine degenerative changes. SOFT TISSUES: Unremarkable. IMPRESSION: 1. No acute inflammatory process in the abdomen/pelvis. Signed by: Dr. Elliott Navarro MD on 08/09/2020 1:36 AM Dictated By: ELLIOTT NAVARRO MD Assessment & Plan Medical Decision Making MDM Differential Dx includes, but not limited to cholecystitis, cholelithisis, Hasmukh- Yonis Daniel, SBO, Ureter/kidney stone, Pancreatitis, PUD, Gastritis, Gastroenteritis. TELECOM COORDINATOR aware checked for patient. CT negative. Patient to follow up with PCP for possible out patient ultrasound of gallbladder. No signs of cholecystitis and need for acute ultrasound (afebrile, normal WBC, normal LFT's, neg CT) Reassessment Reassessment time: 01:53 Reassessment pain improved Assessment & Plan Final Impression: (1) Abdominal pain Depart Disposition: HOME, S[facility]F-[facility] Meds Active Scripts Acetaminophen/Codeine* (TYLENOL # 3*) 1 Ea Tab, 1 TAB PO Q6H PRN for SEVERE PAIN (7-10), #14 Prov:DANIA PAIZ MD 08/09/20 Dicyclomine Hcl (DICYCLOMINE HCL) 20 Mg Tablet, 20 MG PO TID, #15 TAB 0 Refills Prov:YONATAN PARKER MD 07/30/18 Ondansetron (ZOFRAN ODT) 4 Mg Tab.rapdis, 8 MG SL Q8H PRN for Nausea, #20 0 Refills may sub with 8mg tablets in place of ODT Prov:YONATAN PARKER MD 07/30/18 Reported Medications Metronidazole (FLAGYL) 250 Mg Tablet, 500 MG PO TID for 7 Days, #21 02/15/19 Medications in the ED Ondansetron HCl 4 mg NOW STAT IV ; Start 08/09/20 at 00:10; Stop 08/09/20 at 00:14; Status DC Ketorolac Tromethamine 30 mg ONCE STAT IV ; Start 08/09/20 at 00:10; Stop 08/09/20 at 00:14; Status DC DANIA PAIZ MD Aug 09, 2020 00:41
--- OUTSIDE RECORDS SUMMARY | 2020-08-09 16:51 | XMS REPORT | Clinical Summary ---
Author Author [facility] Organization [facility] Address Unknown Phone Unavailable Care Team Providers Care [employer] Superintendent Name Role Phone Cara Durand MD PCP Allergies Comments Active Allergy Reactions Severity Noted Date Vision (depth) Gabapentin Other (See 01/15/2020 Comments) Medications End Date Status Medication Sig Dispensed Refills Start Date Active betamethasone Apply 1 0 dipropionate 0.05 % application 8 lotion topically 2 (two) times a day. APPLY TO SCALP Active desoximetasone (TOPICORT) Apply 1 0 05/0 0.25 % ointment application 8 topically 2 (two) times a day. Monday THRU Monday ONLY. LEGS, KNEE CAP, ELBOW Active mometasone (ELOCON) 0.1 % Apply 1 0 05/0 ointment application 8 topically 2 (two) times a day. Monday THRMonday ONLY. TAIL BONE, STOMACH AND BACK OF EARS Active acetaminophen (TYLENOL) Take 325 mg 0 325 MG tablet by mouth every 6 (six) hours as needed for fever. Active STELARA 90 mg/mL 0 injection 9 Active ibuprofen (ADVIL) 800 MG Take 800 mg 0 tablet by mouth every 8 (eight) hours as needed for mild pain. Active calcium carbonate (TUMS) Chew 1 tablet 0 200 mg calcium (500 mg) as needed for chewable tablet indigestion or heartburn. Active calcium carb/magnesium Take by mouth 0 hydrox (ROLAIDS ORAL) as needed. 01/15/2020 Discontinued (Alternate ther apy) etanercept (ENBREL) 50 Inject 50 mg 0 01 mg/mL (0.98 mL) injection under the 8 skin 2 times weekly. 10/08/2019 vancomycin (FIRVANQ) 50 Take 5 mL 200 mL 0 mg/mL recon soln oral (250 mg 9 solution total) by mouth every 6 (six) hours for 10 days. 10/08/2019 acetaminophen-codeine Take 1 tablet 10 tablet 0 (TYLENOL WITH CODEINE #3) by mouth 9 300-30 mg per every 4 tabletIndications: acute (four) hours pain as needed for moderate pain for up to 10 days .Acute Pain. 12/19/2019 traMADol (ULTRAM) 50 mg Take 1 tablet 21 tablet 0 tabletIndications: acute (50 mg total) 0 pain by mouth every 8 (eight) hours as needed for moderate pain or severe pain for up to 7 days .acute pain. 12/21/2019 vancomycin (FIRVANQ) 50 Take 2.5 mL 90 mL 0 mg/mL recon soln oral (125 mg 0 solution total) by mouth 4 (four) times a day for 9 days. Active Problems Problem Noted Date Intractable abdominal pain 12/10/2019 Left lower quadrant abdominal pain 12/10/2019 History of laparoscopic adjustable gastric banding 0 12/10/2019 Class 3 severe obesity due to excess calories without serious comorbidity 12/10/2019 with body mass index (BMI) of 40.0 to 4 4.9 in adult Norovirus 09/25/2019 Clostridium difficile colitis 09/25/2019 Gastroenteritis, infectious 09/24/2019 Rectal bleeding 06/30/2019 Colitis due to Clostridium difficile 08/20/2018 C. difficile enteritis 08/17/2018 Generalized abdominal pain 04/26/2018 Encounters Care Team Description Date Type Specialty Naye Lindo MA Gastric band malfunction (Primary Dx); Gastroesophageal reflux disease with esophagitis; Morbid obesity due to excess calories (HCC); Obstructive sleep apnea; Generalized abdominal pain; Bariatric surgery status; Pre-operative laboratory examination; BMI 45.0-49.9, adult (HCC) 02/07/2020 Orders Only General Surgery Mahad Mccallum MD Gastric band malfunction (Primary Dx); Gastroesophageal reflux disease with esophagitis; Morbid obesity due to excess calories (HCC); Obstructive sleep apnea 01/15/2020 Office Visit General Surgery Anthony Dunham MD COLONOSCOPY 12/12/2019 Surgery Gastroenterology Kristel Wheeler MD 12/12/2019 Anesthesia Gastroenterology Event Isaac, DO Lyudmila Alfredo Sidharth, MD Acres, Omar Winston, MD Intractable abdominal pain (Primary Dx) 12/09/2019 Emergency General Internal Ne dicine - 12/12/2019 Song Stewart MD Kohlnhofer, Matthew, MD Gastroenteritis, infectious (Primary Dx) ; Clostridium difficile colitis 09/24/2019 Hospital General Internal Ne dicine - Encounter 09/28/2019 after 08/09/2019 Family History Medical History Relation Name Comments Anemia Father Hypothyroidism Mother Irritable bowel syndrome Sister Anemia Sister Hypothyroidism Sister Relation Name Status Comments Father Alive Mother Alive Sister Alive Sister Alive Social History Date Tobacco Use Types Packs/Day Years Used Never Smoker Smokeless Tobacco: Never Used Drinks/Week oz/Week Comments Alcohol Use No Sex Assigned at Date Recorded Not on file Last Filed Vital Signs Reading Time Taken Comments Vital Sign 129/83 01/15/2020 9:23 AM [facility] Blood Pressure 79 01/15/2020 9:23 AM [facility] Pulse 36.7 C (98.1 F) 01/15/2020 9:23 AM [facility] Temperature 18 01/15/2020 9:23 AM [facility] Respiratory Rate 98% 01/15/2020 9:23 AM [facility] Oxygen Saturation - - Inhaled Oxygen Concentration 139 kg (307 lb 0.3 oz) 01/15/2020 9:23 AM [facility] Weight 172.7 cm (5' 8") 01/15/2020 9:23 AM [facility] Height 46.68 01/15/2020 9:23 AM [facility] Body Mass Index Plan of Treatment Health Maintenance Due Date Last Done Comments CERVICAL CANCER SCREENING 1993 INFLUENZA VACCINE 06/13/2020 09/05/2019 Procedures Comments Procedure Name Priority Date/Time Associated Diag nosis GASTROINTESTINAL PANEL Routine 12/12/2019 12:40 PM [facility] SURGICAL PATHOLOGY Routine 12/12/2019 REQUEST 11:37 AM [facility] COLONOSCOPY 12/12/2019 ABDOMINAL PAIN 11:28 AM [facility] ECG PRE/POST OP STAT 12/12/2019 6:43 AM [facility] FECAL CALPROTECTIN Routine 12/12/2019 12:40 AM [facility] US GALLBLADDER Today 12/10/2019 11:27 [address] [facility] [address] ABDOMEN W STAT 12/09/2019 CONTRAST-POST OP 11:34 PM [facility] BARIATRIC URINALYSIS SCREEN AND STAT 12/09/2019 MICROSCOPY, WITH REFLEX 10:11 PM [facility] TO CULTURE HCG QUALITATIVE, URINE STAT 12/09/2019 SCREEN 10:11 PM [facility] URINE CULTURE STAT 12/09/2019 10:11 PM [facility] ESTIMATED GFR STAT 12/09/2019 10:00 PM [facility] LIPASE LEVEL STAT 12/09/2019 10:00 PM [facility] COMPREHENSIVE METABOLIC STAT 12/09/2019 PANEL 10:00 PM [facility] HC COMPLETE BLD COUNT STAT 12/09/2019 W/AUTO DIFF 10:00 PM [facility] ESTIMATED GFR Routine 09/28/2019 5:04 AM [facility] COMPREHENSIVE METABOLIC Routine 09/28/2019 PANEL 5:04 AM [facility] HC COMPLETE BLD COUNT Routine 09/28/2019 W/AUTO DIFF 5:04 AM [facility] ESTIMATED GFR Routine 09/27/2019 5:22 AM [facility] MAGNESIUM LEVEL Routine 09/27/2019 5:22 AM [facility] BASIC METABOLIC PANEL Routine 09/27/2019 5:22 AM [facility] ESTIMATED GFR Routine 09/25/2019 6:27 AM [facility] BASIC METABOLIC PANEL Routine 09/25/2019 6:27 AM [facility] HC COMPLETE BLD COUNT Routine 09/25/2019 W/AUTO DIFF 6:27 AM [facility] LACTIC ACID LEVEL, SEPSIS Timed 09/24/2019 - NOW AND REPEAT 2X EVERY 11:10 PM [facility] 3 HOURS BLOOD CULTURE, AEROBIC & Routine 09/24/2019 ANAEROBIC 11:10 PM [facility] BLOOD CULTURE, AEROBIC & Routine 09/24/2019 ANAEROBIC 11:10 PM [facility] LACTIC ACID LEVEL, SEPSIS Timed 09/24/2019 - NOW AND REPEAT 2X EVERY 5:44 PM [facility] 3 HOURS PROTHROMBIN TIME WITH INR STAT 09/24/2019 5:44 PM [facility] PARTIAL THROMBOPLASTIN STAT 09/24/2019 TIME (PTT) 5:44 PM [facility] ESTIMATED GFR Routine 09/24/2019 5:44 PM [facility] BASIC METABOLIC PANEL Routine 09/24/2019 5:44 PM [facility] CBC HEMOGRAM Routine 09/24/2019 5:44 PM [facility] LACTIC ACID LEVEL, SEPSIS STAT 09/24/2019 - NOW AND REPEAT 2X EVERY 1:00 PM [facility]FACE [facility] 3 HOURS GASTROINTESTINAL PANEL Routine 09/24/2019 12:41 PM [facility] ESTIMATED GFR STAT 09/24/2019 11:56 AM [facility] COMPREHENSIVE METABOLIC STAT 09/24/2019 PANEL 11:56 AM [facility] after 08/09/2019 Results * Gastrointestinal panel (12/12/2019 12:40 PM [facility]FACE [facility]) Only the most recent of 2 results within the time period is included. Gastrointestina Negative for all pathogens [facility] panel tested: [facility] Negative for Salmonella HOSPITAL Negative for Campylobacter Negative for Diarrheagenic E coli/Shigella Negative for Shiga-like toxin-producing E coli Negative for Plesiomonas shigelloides Negative for Yersinia enterocolitica Negative for Vibrio species Negative for Clostridium difficile (Toxin A/B) Negative for Cryptosporidium Negative for Giardia lamblia Negative for Cyclospora cayeteanensis Negative for Entamoeba histolytica Negative for Adenovirus F 40/41 Negative for Astrovirus Negative for Norovirus GI/GII Negative for Rotavirus A Negative for Sapovirus Negative for Clostridium difficile toxin Negative for E coli 0157 This real-time PCR assay detects the presence of nucleic acids (RNA or DNA) for the gastrointestinal pathogens listed. A result of "Not-detected" does not exclude the possibility of the presence of one or more pathogens at concentrations less than the detectable limits of the assay. Comment: Specimen Information Specimen Source: Stool Specimen Site: Nonpreserved Specimen Stool - Nonpreserved Performing Organization Address [facility]/ZIP Code P ashley Number [facility] [address] [place] [address] PATHOLOGY AND GENOMIC MEDICINE [place] [id number] [facility] * Surgical pathology request (12/12/2019 11:37 AM SURFACE ROOM [facility]) [facility] DEPARTMENT OF PATHOLOGY AND GENOMIC MEDICINE Surgical See link below for PDF Lab [facility] pathology Report DEPARTMENT OF report PATHOLOGY AND GENOMIC MEDICINE Result status This is Final Report for [facility] [id number] DEPARTMENT OF PATHOLOGY AND GENOMIC MEDICINE Specimen Performing Organization Address [facility] P ashley Number [address] [place], [place] [address] PATHOLOGY AND GENOMIC MEDICINE * ECG Pre/Post Op (12/12/2019 6:43 AM SURFACE ROOM [facility]) Ventricular 61 [facility] rate Atrial rate 61 [facility] OH interval 178 [facility] QRSD interval 80 [facility] QT interval 430 [facility] QTC interval 432 [facility] P axis 1 55 [facility] QRS axis 1 41 [facility] T wave axis 38 [facility] EKG impression Normal sinus rhythm-Low [facility] voltage QRS-Borderline ECG-In automated comparison with ECG of 23-JUN-2018 01:50,-Minimal criteria for Anterior infarct are no longer present-No significant change was found- Specimen Narrative Performed At This result has an attachment that is n ot available. Performing Organization Address City/[facility]/ZIP Code P ashley Number [address] [address] * Fecal calprotectin (12/12/2019 12:40 AM SURFACE ROOM [facility]) Fecal 7.94 <15.6-120 mg/kg [facility] calprotectin [facility] Specimen Blood Performing Organization Address City/[facility] Code P ashley Number [place] [address] [place] [address] PATHOLOGY AND GENOMIC MEDICINE [facility] [address] [place] [id number] [facility] * US Gallbladder (12/10/2019 11:27 AM SURFACE ROOM [facility]) Specimen Narrative Performed At EXAMINATION: US GALLBLADDER [facility] CLINICAL HISTORY: RUQ pain no fever no elev WBC COMPARISON: Gallbladder ultrasound 08/2018 FINDINGS: Gallbladder: The gallbladder is without evidence of calculi. The gallbladder wall is not thickened and there is no p ericholecystic fluid. CBD: 4 mm , within normal limits. Portal vein: The portal vein demonstrat es normal hepatopetal flow. The portal vein measures 1.2 cm, within normal marsh its. Incidental note is made of diffuse incr eased echotexture throughout the liver likely due to hepatic steatosis. IMPRESSION: Negative gallbladder ultrasound examina tion. Moderate to severe hepatic steatosis. [id number] Procedure Note Interface, Radiology Results Incoming - 12/10/2019 11:32 AM SURFACE ROOM [facility] EXAMINATION: US GALLBLADDER CLINICAL HISTORY: RUQ pain no fever no elev WBC COMPARISON: Gallbladder ultrasound 06/22/2018 FINDINGS: Gallbladder: The gallbladder is without evidence of calculi. The gallbladder wall is not thickened and there is no pericholecystic fluid. CBD: 4 mm , within normal limits. Portal vein: The portal vein demonstrates normal hepatopetal flow. The portal vein measures 1.2 cm, within normal limits. Incidental note is made of diffuse increased echotexture throughout the liver likely due to hepatic steatosis. IMPRESSION: Negative gallbladder ultrasound examination. Moderate to severe hepatic steatosis. [facility]-[id number] Performing Organization Address City/State/ZIP Code P ashley Number [facility] [address] [place] [address] * CT Abdomen W Contrast Post-OP Bariatric (12/09/2019 11:34 PM SURFACE ROOM [facility]) Specimen Narrative Performed At EXAMINATION: CT ABDOMEN W CONTRAST-POST OP BARIATRI C [facility] CLINICAL HISTORY: 49 yearsFemale abdomi nal pain blood stools TECHNIQUE: Multiple axial images of the abdomen and pelvis were obtained following intravenous administration of iodinated contrast. Sagittal and coronal computerized reformatted images were al so obtained. CT imaging was performed with iterative reconstruction techniques and/or automa amanda exposure control to reduce radiation dose. COMPARISON: 06/29/2019 IMPRESSION: LUNG BASES: Tiny peripheral nodular densities in th e right lung base are unchanged and likely reflect the sequela of chronic i nflammation. Similar changes are present in the posteromedial left lung base. Th ere are no acute consolidations or effusions. ABDOMEN: Liver: There is mild decreased hepatic attenuation. No focal hepatic mass. Gallbladder/Biliary: The gallbladder is contracted. Spleen: The spleen is not enlarged. Pancreas: The pancreas is unremarkable. Adrenal Glands: The adrenal glands are unremarkable. Kidneys: A small 2.2 cm cyst is present in the upper pole of the left kidney. There are no suspicious renal masses. N o renal calculi. No hydronephrosis. Vascular: The abdominal aorta is nonane urysmal. Nodes: No enlarged retroperitoneal or m esenteric lymphadenopathy. Bowel: The appendix has been surgically removed. There are changes related to laparoscopic gastric banding. The port overlies the left mid abdomen. The tube is intact. There is mild thickening of the lower esophagus. There is no evidence of intestinal obstruction or free intraperitoneal air . Ascites/fluid collections: No ascites o r fluid collections. PELVIS: Status post hysterectomy. No evidence o f pelvic mass, fluid collection, or pelvic lymphadenopathy. The urinary minh dder is grossly unremarkable. MUSCULOSKELETAL: Degenerative changes are present in the lower lumbar spine and lumbosacral junction. There are no suspicious bony abnormalities. SUMMARY: 1.Status post laparoscopic gastric band ing. Mild thickening of the distal esophagus likely reflects esophagitis. 2.Mild hepatic steatosis. 3.Benign left upper pole renal cyst. 4.Status post appendectomy. 5.Status post hysterectomy. [facility]-[id number] Procedure Note [facility], Radiology Results Incoming - 12/09/2019 11:44 PM SURFACE ROOM [facility] EXAMINATION: CT ABDOMEN W CONTRAST-POST OP BARIATRIC CLINICAL HISTORY: 49 yearsFemale abdominal pain blood stools TECHNIQUE: Multiple axial images of the abdomen and pelvis were obtained following intravenous administration of iodinated contrast. Sagittal and coronal computerized reformatted images were also obtained. CT imaging was performed with iterative reconstruction techniques and/or automated exposure control to reduce radiation dose. COMPARISON: 06/29/2019 IMPRESSION: LUNG BASES: Tiny peripheral nodular densities in the right lung base are unchanged and likely reflect the sequela of chronic inflammation. Similar changes are present in the posteromedial left lung base. There are no acute consolidations or effusions. ABDOMEN: Liver: There is mild decreased hepatic attenuation. No focal hepatic mass. Gallbladder/Biliary: The gallbladder is contracted. Spleen: The spleen is not enlarged. Pancreas: The pancreas is unremarkable. Adrenal Glands: The adrenal glands are unremarkable. Kidneys: A small 2.2 cm cyst is present in the upper pole of the left kidney. There are no suspicious renal masses. No renal calculi. No hydronephrosis. Vascular: The abdominal aorta is nonaneurysmal. Nodes: No enlarged retroperitoneal or mesenteric lymphadenopathy. Bowel: The appendix has been surgically removed. There are changes related to laparoscopic gastric banding. The port overlies the left mid abdomen. The tube is intact. There is mild thickening of the lower esophagus. There is no evidence of intestinal obstruction or free intraperitoneal air. Ascites/fluid collections: No ascites or fluid collections. PELVIS: Status post hysterectomy. No evidence of pelvic mass, fluid collection, or pelvic lymphadenopathy. The urinary bladder is grossly unremarkable. MUSCULOSKELETAL: Degenerative changes are present in the lower lumbar spine and lumbosacral junction. There are no suspicious bony abnormalities. SUMMARY: 1.Status post laparoscopic gastric lucia ng. Mild thickening of the distal esophagus likely reflects esophagitis. 2.Mild hepatic steatosis. 3.Benign left upper pole renal cyst. 4.Status post appendectomy. 5.Status post hysterectomy. [facility]-[id number] Performing Organization Address City/State/ZIP Code P ashley Number [facility] [address] [place] [address] * Urinalysis screen and microscopy, with reflex to culture (12/09/2019 10:11 PM SURFACE ROOM [facility]) Specimen site Clean catch [facility] Color, UA Yellow [facility] Appearance, UA Clear [facility] Specific 1.017 1.001 - 1.035 [facility] gravity, [facility] pH, UA 5.0 5.0 - 8.5 [facility] Protein, UA Negative Negative [facility] Glucose, UA Negative Negative [facility] Ketones, UA Negative Negative [facility] Bilirubin, UA Negative Negative [facility] Blood, UA Negative Negative [facility] Nitrite, UA Negative Negative [facility] Urobilinogen, Negative <2.0 [facility] Leukocyte Negative Negative [facility] esterase, [facility] Epithelial Few Few /HPF SONI cells, [facility] WBC, UA 0-5 0 - 4 /HPF [facility] RBC, UA 0-5 0 - 5 /HPF [facility] Bacteria, UA Few None seen [facility] Yeast, UA None seen [facility] Yeast with None seen [facility] pseudohyphae, [facility] Specimen Urine Performing Organization Address [facility]/ZIP Code P ashley Number [address] [place] [address] PATHOLOGY AND GENOMIC MEDICINE [address] * hCG qualitative, urine screen (12/09/2019 10:11 PM SURFACE ROOM [facility]) Pathologist [facility] hCG Negative Negative [facility] qualitative, Comment: [facility] urine The manufacturers stated [facility] L sensitivity of HcG test for serum is >/= 10 mIU/ml and urine is >/= 20mIU/ml. Specimen Urine Performing Organization Address [facility] P ashley Number [address] [place] [address] PATHOLOGY AND [facility] MEDICINE [address] * Urine culture (12/09/2019 10:11 PM SURFACE ROOM [facility]) Pathologist [facility] Urine culture SEE COMMENTComment: [facility] Bacteriuria screen negative. [facility] Specimen Urine Performing Organization Address City/[facility] P ashley Number [address] [place] [address] PATHOLOGY AND GENOMIC MEDICINE [address] * Estimated GFR (12/09/2019 10:00 PM SURFACE ROOM [facility]) Only the most recent of 6 results within the time period is included. Estimated GFR >=90 mL/min/1.73 m2 [facility] Comment: [facility] Interpretation G1 >=90 Normal or high G2 60-89 Mildly decreased G3a 45-59 Mildly to moderately decreased G3b 30-44 Moderately to severely decreased G4 15-29 Severely decreased G5 <15 Kidney failure The eGFR was calculated using the Chronic Kidney Disease Epidemiology Collaboration (CKD-EPI) equation. Interpretation is based on recommendations of the National Kidney Foundation-Kidney Disease Outcomes Quality Initiative (NKF-KDOQI) published in 2014. Specimen Plasma specimen Performing Organization Address City/[facility]/ZIP Code P ashley Number [facility] DEPARTMENT [address] [place], [place] [address] PATHOLOGY AND GENOMIC MEDICINE [address] [place] [address] * CBC with platelet and differential (12/09/2019 10:00 PM SURFACE ROOM [facility]) Only the most recent of 3 results within the time period is included. WBC 6.33 4.50 - 11.00 k/uL [facility] RBC 5.14 4.20 - 5.50 m/uL [facility] HGB 14.4 12.0 - 16.0 g/dL [facility] HCT 44.9 37.0 - 47.0 % [facility] MCV 87.4 82.0 - 100.0 fL [facility] MCH 28.0 27.0 - 34.0 pg [facility] MCHC 32.1 31.0 - 37.0 g/dL [facility] RDW - SD 43.8 37.0 - 55.0 fL [facility] MPV 9.2 8.8 - 13.2 fL [facility] Platelet count 279 150 - 400 k/uL [facility] Nucleated RBC 0.00 /100 WBC [facility] Neutrophils 64.5 39.0 - 69.0 % [facility] Lymphocytes 26.2 25.0 - 45.0 % [facility] Monocytes 6.0 0.0 - 10.0 % [facility] Eosinophils 2.5 0.0 - 5.0 % [facility] Basophils 0.5 0.0 - 1.0 % [facility] Specimen Blood Performing Organization Address City/[facility]/ZIP Code P ashley Number [address] [place], [place] [address] PATHOLOGY AND GENOMIC MEDICINE [address] * Lipase level (12/09/2019 10:00 PM SURFACE ROOM [facility]) Lipase 38 13 - 60 U/L [facility] Specimen Plasma specimen Performing Organization Address City/[facility]/ZIP [facility] [place] P ashley Number [facility] [place] [id number] [place] [address] [place], [place] [address] PATHOLOGY AND GENOMIC MEDICINE [facility] [id number] [place] [address] [place] [address] [facility] * Comprehensive metabolic panel (12/09/2019 10:00 PM SURFACE ROOM [facility]) Only the most recent of 3 results within the time period is included. Sodium 143 135 - 148 mEq/L [facility] Potassium 4.1 3.5 - 5.0 mEq/L [facility] Chloride 104 98 - 112 mEq/L [facility] CO2 26 24 - 31 mEq/L [facility] Anion gap 13@ANIO 7 - 15 mEq/L [facility] BUN 16 6 - 20 mg/dL [facility] [place] Creatinine 0.60 0.50 - 0.90 mg/dL [facility] Glucose 101 (H) 65 - 99 mg/dL [facility] Calcium 10.6 (H) 8.3 - 10.2 mg/dL [facility] Protein 8.1 6.3 - 8.3 g/dL [facility] Comment: [facility]9994.6-7.0 g/dL [facility] 1 kaao3421.4-7.6 g/dL 7 months-3dgtm336.1-7.3 g/dL 1-2 .6-7.5 g/dL >3 vsiho558.0-8.0 g/dL 18-3546488.3-8.3 g/dL Albumin 4.8 3.5 - 5.0 g/dL [facility] A/G ratio 1.5 0.7 - 3.8 [facility] Alkaline 137 (H) 35 - 104 U/L [facility]ST phosphatase [facility] AST 28 10 - 35 U/L [facility] ALT 28 5 - 50 U/L [facility] Total bilirubin 0.3 0.0 - 1.2 mg/dL [facility] Specimen Plasma specimen Performing Organization Address City/State/ZIP Code P ahsley Number [facility] DEPARTMENT OF [address] [place] [address] [place], [place] [address] PATHOLOGY AND GENOMIC MEDICINE [address] [place] [address] * Magnesium level (09/27/2019 5:22 AM SURFACE ROOM [facility]) Magnesium 2.2 1.6 - 2.6 mg/dL [facility] Specimen Plasma specimen Performing Organization Address [facility] P ashley Number [facility] DEPARTMENT [place] [address] [address] [place] [place], [place] [address] PATHOLOGY AND GENOMIC MEDICINE [address] * Basic metabolic panel (09/27/2019 5:22 AM SURFACE ROOM [facility]) Only the most recent of 3 results within the time period is included. Sodium 140 135 - 148 mEq/L [facility] Potassium 3.6 3.5 - 5.0 mEq/L [facility] Chloride 105 98 - 112 mEq/L [facility] CO2 23 (L) 24 - 31 mEq/L [facility] Anion gap 12@ANIO 7 - 15 mEq/L [facility] BUN 12 6 - 20 mg/dL [facility] Creatinine 0.60 0.50 - 0.90 mg/dL [facility] Glucose 94 65 - 99 mg/dL [facility] Calcium 9.0 8.3 - 10.2 mg/dL [facility] Specimen Plasma specimen Performing Organization Address [facility] P ashley Number [facility] [place] [address] [address] [place] [address] PATHOLOGY AND [facility] MEDICINE [address] * Lactic acid level, SEPSIS - Now and repeat 2x every 3 hours (09/24/2019 11:10 PM SURFACE ROOM [facility]) Only the most recent of 3 results within the time period is included. Lactic acid 0.7 0.5 - 2.2 mmol/L [facility] Specimen Plasma specimen Performing Organization Address City/[facility] P ashley Number [facility] DEPARTMENT [place] [address] [address] [place], [place] [address] PATHOLOGY AND GENOMIC MEDICINE [place] [address] [address] * Blood culture, aerobic & anaerobic (09/24/2019 11:10 PM SURFACE ROOM [facility]) Only the most recent of 2 results within the time period is included. Pathologist [facility] Blood culture No growth after 5 days of [facility]ST isolate incubation. [place] Comment: HOSPITAL Specimen Information Specimen Source: Blood Specimen Site: Unspecified Specimen Blood Performing Organization Address City/[facility]/ZIP Code P ashley Number [facility] DEPARTMENT OF [address] [place] [address] PATHOLOGY AND [facility] MEDICINE [address] * Partial thromboplastin time, activated (09/24/2019 5:44 PM SURFACE ROOM [facility]) Pathologist [facility] PTT 34.3 23.0 - 36.0 sec WEST Comment: [place] CLEAR PTT therapeutic range for [facility] unfractionated heparin is 61.0-112.0 seconds which corresponds to Anti-Xa 0.3-0.7 U/ml. Specimen Blood Performing Organization Address [facility] P ashley Number [facility] DEPARTMENT [address] [place] [address] PATHOLOGY AND [address] * Prothrombin time with INR (09/24/2019 5:44 PM SURFACE ROOM [facility]) [facility] Prothrombin 14.2 11.5 - 14.5 sec [facility] INR 1.1 [facility]ST Comment: [place] The International Normalized [facility] Ratio (INR) is a therapeutic monitoring tool for patients who are stable on oral anticoagulant therapy. An INR of 2.0-3.0 is suggested for deep vein thrombosis/pulmonary embolism. Specimen Blood Performing Organization Address City/[facility] P ashley Number [facility] DEPARTMENT [address] [place] [address] PATHOLOGY [facility] MEDICINE [address] * CBC hemogram (09/24/2019 5:44 PM SURFACE ROOM [facility]) [facility] WBC 8.72 4.50 - 11.00 k/uL [facility] RBC 4.48 4.20 - 5.50 m/uL [facility] HGB 12.6 12.0 - 16.0 g/dL [facility] HCT 40.4 37.0 - 47.0 % [facility] MCV 90.2 82.0 - 100.0 fL [facility] MCH 28.1 27.0 - 34.0 pg [facility] MCHC 31.2 31.0 - 37.0 g/dL [facility] RDW - SD 44.9 37.0 - 55.0 fL [facility] MPV 9.3 8.8 - 13.2 fL [facility] Platelet count 238 150 - 400 k/uL [facility] Nucleated RBC 0.00 /100 WBC [facility] Specimen Blood Performing Organization Address City/State/ZIP Code [place] [address] [address] [place], [place] [address] PATHOLOGY AND GENOMIC MEDICINE [facility] [address] [place] [address] [facility] after 08/09/2019 Additional Health Concerns Last Indicated Resolved Time Infection Onset Date 08/21/2018 C.Difficile (E) 08/19/2018 Insurance Type Payer Benefit Subscriber ID Effective Phone Address Plan / Dates Group O BCBS BCBS [id number] 2019-P 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
--- OUTSIDE RECORDS SUMMARY | 2020-08-09 16:51 | XMS REPORT | Clinical Summary ---
Author Author [facility] Address Unknown Phone Unavailable Care Team Providers Care Wood Turner Name Role Phone Cara Durand MD PCP [...] Not on file Results Not on fileafter 08/09/2019 Insurance Payer Benefit Subscriber ID Type Phone Address Plan / Group [facility] xxxxxxxxxxxxx [facility] [address] Keiry lagunas (Home) [place], [place] [address] [address] Personal/F Self [id number] [place]iry [place] (Home) [place], [place] [address] Advance Directives For more information, please contact: [facility] [address] [place] [address] Date Inactivated Comments Code Status Date Activated 02/07/2017 6:32 PM Full Code 02/06/2017 7:44 PM This code status was determined by: Patient
--- OUTSIDE RECORDS SUMMARY | 2020-08-09 16:52 | XMS REPORT | Continuity of Care Document ---
Author Author [facility] t Organization [facility] Address [address] [place] [address] Phone Unavailable Care Team Providers Care Photographic Developer And Printer Name Role Phone IMTIAZTDE PCP Phong PAIZ Attphys Unavailable Guicho CLOUD, Naye Attphys Unavailable Alessio HARO, Mahad Attphys Isaac DO, Antonia Stratton Attphys Lyudmila HARO, Jason Attphys Roberth HARO, Sanjeev Schmitt Attphys Roly HARO, Maciel Cruz Attphys Summer HARO, Aurea Humphries Attphys Terry HARO, Apolonia Attphys Daisy HARO, Horacio Attphys Angie SURESH Attphys Unavailable Buck LEMONS Attphys Unavailable Vitaly EGAN Attphys Unavailable Honey MCCLAIN Attphys Unavailable Cristian PARKER Attphys Unavailable Vitaly WHITE Attphys Unavailable Hunter CAMP Attphys Unavailable JASON DE LA ROSA Admphys Unavailable APOLONIA ROMAN Admphys Unavailable SYLVAIN MORELAND Admphys Unavailable Payers Payer Name Policy Type Policy Number Effective Date Expiration Date Rodolfo [employer] [place] o [id number] [facility] BCBSBCBS [id number] 2019 00:00:00 Zachariah Loera [facility] Health [facility] [id number] 2018 00:00:00 2019 00:00:00 [facility] Problems Condition Name Condition Details Condition Category Status Onset Date Resolution Date Last Treatment Date Treating Clinician Comments Source Intractable abdominal pain Intractable abdominal pain Disease Active 2019-12-10 00:00:[address] Left lower quadrant abdominal pain Left lower quadrant abdominal pain Disease Active 2019-12-10 00:00:00 Melissa Cuiist History of laparoscopic adjustable gastric banding His tory of laparoscopic adjustable gastric banding Disease Active 2019-12-10 00:00:00 Zachariah Loera Class 3 severe obesity due to excess ra ories without serious comorbidity with body mass index (BMI) of 40.0 to 44.9 in adult Class 3 severe obesity due to excess calories without serious comorbidity with body mass index (BMI) of 40.0 to 44.9 in adult Disease Active 2019-12-10 00:00:00 Zachariah Loera Norovirus Norovirus Disease Active 2019-09-25 00:00:00 Zachariah Loera Clostridium difficile colitis Clostridium difficile colitis Disease Active 2019-09-25 00:00:00 Zachariah Cuiist Gastroenteritis, infectious Gastroenteritis, infectious Disease Active 2019-09-24 00:00:00 Zachariah Loera Rectal bleeding Rectal bleeding Disease Active 2019-06-30 00:00:00 Zachariah Loera Colitis due to Clostridium difficile Colitis due to Clostrid ium difficile Disease Active 2018-08-20 00:00:00 Zachariah Loera C. difficile enteritis C. difficile enteritis Disease Active 2018-08-17 00:00:[address] Generalized abdominal pain Generalized abdominal pain Disease Active 2018-04-26 00:00:[address] Chest pain, unspecified type Chest pain, unspecified type Disease Active 2017-02-06 00:00:00 [facility] Abdominal pain Abdominal pain Problem Active [facility] Hemorrhagic diarrhea Bloody diarrhea Problem Active [facility] Allergies, Adverse Reactions, Alerts Allergy Name Allergy Type Status Severity Reaction(s) Onset Date Inacti ve Date Treating Clinician Comments Source Gabapentin Propensity to adverse reactions to drug Active Other (See Comments) 2020-01-15 00:00:00 Vision (depth) Tanvi Loera Family History Family Member Diagnosis Comments Start Date Stop Date Source Natural father Anemia [facility] Natural mother Hypothyroidism Tanvi Loera Natural sister Irritable bowel syndrome Zachariah Loera Natural sister Anemia [facility] Natural sister Hypothyroidism Tanvi Loera Social History Social Habit Start Date Stop Date Quantity Comments Source Sex Assigned At Talisha geeping Loera Tobacco use and exposure 2020-01-15 00:00:00 2020-01-15 00:00:00 Chavez kent used Zachariah Loera Alcohol intake 2020-01-15 00:00:00 2020-01-15 00:00:00 Current non-drinker of alcohol (finding) Zachariah Loera Smoking Status Start Date Stop Date Source Never smoker Zachariah contreras Medications Ordered Medication Name Filled Medication Name Start Date Stop Da te Current Medication? Ordering Clinician Indication Dosage Frequency Signature (SIG) Comments Components Source Acetaminophen/Codeine Phosphate (Tylenol # 3*) 1 Ea TA B Acetaminophen/Codeine Phosphate (Tylenol # 3*) 1 Ea TAB 2020-08-09 02:04:00 Yes 1 Every 6 Hours as needed for Severe Pain (7-10) C [facility] ibuprofen (ADVIL) 800 MG tablet 2020-01-15 09:41:09 Yes 800mg Q8H Take 800 mg by mouth every 8 (eight) hours as needed for mild pain. Zachariah Loera calcium carbonate (TUMS) 200 mg calcium (500 mg) chewable ta blet 2020-01-15 09:41:09 Yes 1{tbl} Chew 1 tab let as needed for indigestion or heartburn. Zachariah Loera calcium carb/magnesium hydrox (ROLAIDS ORAL) 2020-01-15 09:41:09 Yes Take by mouth as needed. Zachariah Loera acetaminophen (TYLENOL) 325 MG tablet 2020-01-15 09:26:06 Y es 325mg Q6H Take 325 mg by mouth every 6 (six) hours as needed for fever. Zachariah Loera vancomycin (FIRVANQ) 50 mg/mL recon soln oral solution 2019-12-12 00:00:00 2019-12-21 23:59:00 No 125mg Q.25D Take 2.5 mL (125 mg total) by mouth 4 (four) times a day for 9 days. Zachariah Lassiter ethodi traMADol (ULTRAM) 50 mg tablet 2019-12-12 00:00:00 6 23:59:00 No acute pain 50mg Q8H Take 1 tablet (50 mg total) by mouth every 8 (eight) hours as needed for moderate pain or severe pain for up to 7 days .acute pain. Zachariah Loera STELARA 90 mg/mL injection 2019-10-21 00:00:00 Yes Zachariah Loera vancomycin (FIRVANQ) 50 mg/mL recon soln oral solution 2019-09-28 00:00:00 2019-10-08 23:59:00 No 250mg Q6H Take 5 mL (250 mg total) by mouth every 6 (six) hours for 10 days. Zachariah mead acetaminophen-codeine (TYLENOL WITH CODEINE #3) 300-30 mg pe r tablet 2019-09-28 00:00:00 2019-10-08 23:59:00 No acute pain 1{tbl} Q4H Take 1 tablet by mouth every 4 (four) hours as needed for moderate pain for up to 10 days .Acute Pain. Zachariah Loera Dicyclomine Hcl Dicyclomine Hcl 2018-07-30 17:08:00 Yes 20 Three Times A Day [facility] Ondansetron (Zofran Odt) 4 [facility] ( Zofran Odt) 4 Mg TAB.RAPDIS 2018-07-30 17:08:00 Yes 8 E very 8 Hours as needed for Nausea [facility] etanercept (ENBREL) 50 mg/mL (0.98 mL) injection 2018-03-30 00:00:00 2020-01-15 00:00:00 No 50mg Q84H Injec t 50 mg under the skin 2 times weekly. Zachariah Loera betamethasone dipropionate 0.05 % lotion 2018-03-20 00:00:00 Yes 1{application} Q.5D Apply 1 application topicall y 2 (two) times a day. APPLY TO SCALP Zachariah Loera desoximetasone (TOPICORT) 0.25 % ointment 2018-03-20 00:00:00 Yes 1{application} Q.5D Apply 1 application topicall y 2 (two) times a day. Monday THRU Monday ONLY. LEGS, KNEE CAP, ELBOW Zachariah Loera mometasone (ELOCON) 0.1 % ointment 2018-03-20 00:00:00 Y es 1{application} Q.5D Apply 1 application topicall y 2 (two) times a day. Monday THRU Monday ONLY. TAIL BONE, STOMACH AND BACK OF EARS Zachariah Loera pantoprazole (PROTONIX) 40 MG tablet 2017-02-07 00:00:00 Ye s 40mg Q.5D Take 1 tablet (40 mg total) by mouth 2 (two) times daily. [facility] Metronidazole (Flagyl) 250 Mg TABLET Metronidazole (Flagyl) 250 Mg TABLET Yes 500 Three Times A Day [facility] Doxepin Hcl Doxepin Hcl 2016-01-15 00:00:00 No 1 D aily [facility] Sertraline Hcl (Zoloft) 100 Mg TABLET Sertraline Hcl (Zoloft) 10 0 Mg TABLET 2016-01-15 00:00:00 No 1 Qhs [facility] Atizan Atjuventinoan 2013-08-16 00:00:00 No [facility] Bupropion Hcl (Wellbutrin) 100 Mg TABLET Bupropion Hcl (Wellbutrin) 100 Mg TABLET 2013-08-16 00:00:00 No 1 Daily [facility] Depression Medication Depression Medication 2013-08-16 00:00:00 No [facility] Sertraline Hcl (Zoloft) 100 Mg TABLET Sertraline Hcl (Zoloft) 10 0 Mg TABLET 2013-08-16 00:00:00 No 1 Daily [facility] Citalopram Hydrobromide (Citalopram Hbr) 40 Mg TABLET Citalopram Hydrobromide (Citalopram Hbr) 40 Mg TABLET 2012-10-11 00:00:00 No Daily [facility] Omeprazole (Prilosec) 20 Mg CAPSULE. Omeprazole (Prilosec) 20 Mg CAPSULE. 2012-10-11 00:00:00 No 1 Daily [facility] Vital Signs Vital Name Observation Time Observation Value Comments Source Weight 2020-08-08 23:20:00 289 [lb_av] [facility] BMI (Body Mass Index) 2020-08-08 23:20:00 43.9 kg/m2 [facility] Systolic blood pressure 2020-01-15 09:23:00 129 mm[Hg] Soni [facility] Diastolic blood pressure 2020-01-15 09:23:00 83 mm[Hg] Zachariah Loera Heart rate 2020-01-15 09:23:00 79 [facility] 2020-01-15 09:23:00 36.72 Connie [place] [facility] Respiratory rate 2020-01-15 09:23:00 18 /min [place] [facility] Body height 2020-01-15 09:23:00 172.7 cm [facility] weight 2020-01-15 09:23:00 139.263 kg Zachariah Loera BMI 2020-01-15 09:23:00 46.68 kg/m2 Zachariah Loera Oxygen saturation in Arterial blood by Pulse oximetry 01-14 09:23:00 98 /min Zachariah Loera Procedures Procedure Date / Time Performed Performing Clinician [facility] e GASTROINTESTINAL PANEL 2019-12-12 12:40:00 Anthony Dunham [facility] SURGICAL PATHOLOGY REQUEST 2019-12-12 11:37:00 Christiano Stevens on Calvin [facility] COLONOSCOPY 2019-12-12 11:28:00 Anthony Dunham Meth odbecki ECG PRE/POST OP 2019-12-12 06:43:27 Anthony Dunham Meth odbecki FECAL CALPROTECTIN 2019-12-12 00:40:00 Anthony Dunham M ethodi US GALLBLADDER 2019-12-10 11:27:[address] ABDOMEN W CONTRAST-POST OP BARIATRIC 2019-12-09 23:34:18 Viral Gray URINE CULTURE 2019-12-09 22:11:00 Viral Gray HCG QUALITATIVE, URINE SCREEN 2019-12-09 22:11:00 Viral Gray URINALYSIS SCREEN AND MICROSCOPY, WITH REFLEX TO CULTURE 22:11:00 Viral Gray HC COMPLETE BLD COUNT W/AUTO DIFF 2019-12-09 22:00:00 Wendy Gray COMPREHENSIVE METABOLIC PANEL 2019-12-09 22:00:00 Viral Gray LIPASE LEVEL 2019-12-09 22:00:00 Viral Gray [facility] ESTIMATED GFR 2019-12-09 22:00:00 Viral Gray HC COMPLETE BLD COUNT W/AUTO DIFF 2019-09-28 05:04:00 Darrion Moreno COMPREHENSIVE METABOLIC PANEL 2019-09-28 05:04:00 Allie Moreno [facility] ESTIMATED GFR 2019-09-28 05:04:00 Allie Moreno [facility] BASIC METABOLIC PANEL 2019-09-27 05:22:00 Kendy Fuchs MAGNESIUM LEVEL 2019-09-27 05:22:00 Kendy Fuchs on [facility] ESTIMATED GFR 2019-09-27 05:22:00 Kendy Fuchs on [facility] HC COMPLETE BLD COUNT W/AUTO DIFF 2019-09-25 06:27:00 St saira Fuchs [facility] BASIC METABOLIC PANEL 2019-09-25 06:27:00 Kendy Fuchs [facility] ESTIMATED GFR 2019-09-25 06:27:00 Kendy Fuchs on [facility] BLOOD CULTURE, AEROBIC & ANAEROBIC 2019-09-24 23:10:00 Rodolfo Fuchs LACTIC ACID LEVEL, SEPSIS - NOW AND REPEAT 2X EVERY 3 HOURS 2019-09-24 23:10:00 Kendy Fuchs CBC HEMOGRAM 2019-09-24 17:44:00 Kendy Fuchs on [facility] BASIC METABOLIC PANEL 2019-09-24 17:44:00 Kendy Fuchs ESTIMATED GFR 2019-09-24 17:44:00 Kendy Fuchs on [facility] PARTIAL THROMBOPLASTIN TIME (PTT) 2019-09-24 17:44:00 JefSt chávez Neeru Loera PROTHROMBIN TIME WITH INR 2019-09-24 17:44:00 Kendy Fuchs LACTIC ACID LEVEL, SEPSIS - NOW AND REPEAT 2X EVERY 3 HOURS 2019-09-24 17:44:00 Kendy Fuchs LACTIC ACID LEVEL, SEPSIS - NOW AND REPEAT 2X EVERY 3 HOURS 2019-09-24 13:00:00 Kendy Fuchs GASTROINTESTINAL PANEL 2019-09-24 12:41:00 Anthony Dunham on [facility] COMPREHENSIVE METABOLIC PANEL 2019-09-24 11:56:00 Jef Pippa balbina Neeru Loera ESTIMATED GFR 2019-09-24 11:56:00 Kendy Fuchs on [facility] Plan of Care Planned Activity Planned Date Details Comments Source Future Scheduled Test 2020-06-13 00:00:00 INFLUENZA VACCINE [code = INFLUENZA VACCINE] Zachariah Loera Future Scheduled Test 1993 00:00:00 Screening for dia gnant neoplasm of cervix (procedure) [code = 793828724] Zachariah Quinonez t Instructions Abdominal Pain - Adult [facility] Encounters Start Date/Time End Date/Time Encounter Type Admission Type [facility] Care Department Encounter ID Source 2020-08-08 23:18:00 2020-08-09 02:08:00 Departed Emergency Room 1 DANIA PAIZ [facility] [id number] [facility] 2020-01-15 00:00:00 2020-01-15 00:00:00 Outpatient MARIELLA PATRICIA [facility] [id number] [place] [facility] 2019-12-09 00:00:00 2019-12-12 00:00:00 Outpatient [facility]RISTIANO [facility]EV[facility] [id number] Zachariah Loera 2019-09-24 00:00:00 2019-09-28 00:00:00 Inpatient PEDRO LUIS GARCIA TTHEW [facility] [id number] [facility] 2019-07-10 21:53:00 2019-07-12 13:11:00 Discharged Inpatient 1 EDWARD SURESH [facility] [id number] [facility] 2019-05-29 22:06:00 2019-05-30 00:52:00 Departed Emergency Room 1 CHU LEMONS [facility] [id number] [facility] 2019-02-14 12:40:00 2019-02-15 14:23:00 Discharged Inpatient (obs) 1 FELTON EGAN [facility] [id number] [facility] 2018-12-09 11:04:00 2018-12-09 15:24:00 Departed Emergency Room 1 ABRAHMADANIA CORNEJO [facility] [id number] [facility] 2018-07-30 13:42:00 2018-07-30 17:34:00 Departed Emergency Room 1 YONATAN PARKER [facility] [id number] [facility] Results Test Description Test Time Test Comments Results Result Comments Source CT ABD/PEL WITH CONTRAST-HOPD 2020-08-09 01:28:00 [facility] [address] [place] [address] Patient Name: SUYAPA BELTRAN MR #: [id number] : 1970 Age/Sex: 50/F Req #: [id number] Adm Physician: Ordered by: DANIA PAIZ MD Report #: [id number] Location: [facility] Room/Bed: Procedure: [id number] HOPD/CT ABD/PEL WITH CONTRAST-HOPD Exam Date: 08/09/20 Exam Time: 104 REPORT STATUS: Signed EXAM: CT Abdomen and Pelvis WITH contrast INDICATION: abd pain [id number] COMPARISON: CT abdomen/pelvis dated 07/10/2019 TECHNIQUE: Abdomen and pelvis were scanned utilizing a multidetector helical scanner from the lung base to the pubic symphysis after administration of IV contrast. Coronal and sagittal reformations were obtained. Dose modulation, iterative reconstruction, and/or weight based adjustment of the mA/kV was utilized to reduce the radiation dose to as low as reasonably achievable. Routine protocol was performed. Scan was performed when during portal venous phase. IV CONTRAST: 100 mL of Isovue-370 ORAL CONTRAST: Water COMPLICATIONS: None RADIATION DOSE: Total DLP: 857.50 mGy*cm Estimated effective dose: (DLP x 0.015 x size factor) mSv CTDIvol has been reviewed. It is below the limits set by the Radiation Protocol Committee (RPC). FINDINGS: LINES and TUBES: Gastric lap band. LOWER THORAX: Unremarkable HEPATO BILIARY: No focal hepatic lesions. No biliary ductal dilation. GALLBLADDER: No radio-opaque stones or sludge. No wall thickening. SPLEEN: No splenomegaly. PANCREAS: No focal masses or ductal dilatation. ADRENALS: No adrenal nodules KIDNEYS/URETERS: Kidneys enhance symmetrically. No hydronephrosis. 1.8 cm left renal superior pole cyst. No stones. GI TRACT: No abnormal distention, wall thickening, or evidence of bowel obstruction. Appendix is not visualized. Gastric lap band in place with small sliding hiatal hernia PELVIC ORGANS/BLADDER: Unremarkable. LYMPH NODES: No lymphadenopathy. VESSELS: Unremarkable. PERITONEUM / RETROPERITONEUM: No free air or fluid. BONES: Lower lumbar spine degenerative changes. SOFT TISSUES: Unremarkable. IMPRESSION: 1. No acute inflammatory process in the abdomen/pelvis. Signed by: Dr. Imer Navarro MD on 08/09/2020 1:36 AM Dictated By: IMER NAVARRO MD 5 Transcribed By: SIMONA on 08/09/20135 COPY TO: DANIA PAIZ MD Surgical pathology request 2019-12-13 16:22:59 Test Item Case number (test code = [id number]) [id number] Surgical pathology report (test code = 2255) See link below for PDF Lab Report Result status (test code = 2349795) This is Final Report for [id number] Calvin [facility] Witnesscal [id number] 15:16:13* Test Item Value Reference Range Interpretation Comments Fecal calprotectin (test code = 29456-2) 7.94 <15.6-120 mg/ kg [facility] [id number] 00:33:10Gastrointestinal panelNegative for all pathogens tested:Negative for SalmonellaNegative for CampylobacterNegative for Diarrheagenic E coli/ShigellaNegative for Shiga-like toxin-producing E coliNegative for Plesiomonas shigelloidesNegative for Yersinia enterocoliticaNegative for Vibrio speciesNegative for Clostridium difficile (Toxin A/B)Negative for CryptosporidiumNegative for Giardia lambliaNegative for Cyclospora cayeteanensisNegative for Entamoeba histolyticaNegative for A denovirus F 40/41Negative for AstrovirusNegative for Norovirus GI/GIINegative fo r Rotavirus ANegative for SapovirusNegative for Clostridium difficile toxinNegat ok for E coli 0157This real-time PCR assay detects the presence of nucleic acid s (RNA or DNA) for the gastrointestinal pathogens listed.A result of "Not-detect ed" does not exclude the possibility of the presence of one or more pathogens at concentrations less than the detectable limits of the assay. Comment: Specimen InformationSpecimen Source: StoolSpecimen Site: Nonpreserved [facility] Pre/Post [id number] 06:48:54* Test Item Value Reference Range Interpretation Comments Ventricular rate (test code = 253) 61 Atrial rate (test code = 255) 61 ID interval (test code = 266) 178 QRSD interval (test code = 260) 80 QT interval (test code = 264) 430 QTC interval (test code = 265) 432 P axis 1 (test code = 267) 55 QRS axis 1 (test code = 268) 41 T wave axis (test code = 270) 38 EKG impression (test code = 273) Normal sinus rhythm-L ow voltage QRS-Borderline ECG-In automated comparison with ECG of 23-JUN-2018 01:50,-Minimal criteria for Anterior infarct are no longer present-No significant change was found-Elec tronically Signed By Milton HARO, Milton ([id number]) on 12/12/2019 6:48:52 AM Zachariah Nath [id number] 11:29:32Hm Interface, Radiology Results Incoming - 12/10/2019 11:32 AM CSTEXAMINATION: US GALLBLADDERCLINICAL HISTORY: RUQ pain no fever no elev WBCCOMPARISON: Gallbladder ultrasound 06/22/2018FINDINGS:Gallbladder: The gallbladder is without evidence of calculi. The gallbladder wall is not thickened and there is no pericholecystic fluid.CBD: 4 mm , within normal limits.Portal vein: The portal vein demonstrates normal hepatopetal flow. The portal vein measures 1.2 cm, within normal limits.Incidental note is made of diffuse increased echotexture throughout the liver likely due to hepatic steatosis.IMPRESSION:Negative gallbladder ultrasound examination.Moderate to severe hepatic steatosis.[facility]-[id number] MethodistCT Abdomen W Contrast Post-OP [id number] 23:41:03Hm Interface, Radiology Results Incoming - 12/09/2019 11:44 PM CSTEXAMINATION: CT ABDOMEN W CONTRAST-POST OP BARIATRICCLINICAL HISTORY: 49 yearsFemale abdominal pain blood stoolsTECHNIQUE: Multiple axial images of the abdomen and pelvis were obtained following intravenous administration of iodinated contrast. Sagittal and coronal computerized reformatted images were also obtained. CT imaging was performed with iterative reconstruction techniques and/or automated exposure control to reduce radiation dose. COMPARISON: 06/29/2019IMPRESSION:LUNG BASES:Tiny peripheral nodular densities in the right lung base are unchanged and likely re flect the sequela of chronic inflammation. Similar changes are present in the po steromedial left lung base. There are no acute consolidations or effusions.ABDOM EN:Liver: There is mild decreased hepatic attenuation. No focal hepatic mass.Gal lbladder/Biliary: The gallbladder is contracted.Spleen: The spleen is not enlarg ed.Pancreas: The pancreas is unremarkable.Adrenal Glands: The adrenal glands are unremarkable.Kidneys: A small 2.2 cm cyst is present in the upper pole of the l eft kidney. There are no suspicious renal masses. No renal calculi. No hydroneph rosis.Vascular: The abdominal aorta is nonaneurysmal.Nodes: No enlarged retroper itoneal or mesenteric lymphadenopathy.Bowel: The appendix has been surgically re moved. There are changes related to laparoscopic gastric banding. The port overl ies the left mid abdomen. The tube is intact. There is mild thickening of the lo wer esophagus. There is no evidence of intestinal obstruction or free intraperit charlton air.Ascites/fluid collections: No ascites or fluid collections.PELVIS:Stat us post hysterectomy. No evidence of pelvic mass, fluid collection, or pelvic ly mphadenopathy. The urinary bladder is grossly unremarkable. MUSCULOSKELETAL: Deg enerative changes are present in the lower lumbar spine and lumbosacral junction . There are no suspicious bony abnormalities. SUMMARY:1.Status post laparoscopic gastric banding. Mild thickening of the distal esophagus likely reflects esopha gitis.2.Mild hepatic steatosis.3.Benign left upper pole renal cyst.4.Status post appendectomy.5.Status post hysterectomy. [facility]-[id number] MethodistComprehensive metabolic [id number] 22:51:37* Test Item Value Reference Range Interpretation Comments Sodium (test code = 2951-2) 143 135- 148 mEq/L Potassium (test code = 2823-3) 4.1 3.5- 5.0 mEq/L Chloride (test code = 2075-0) 104 98- 112 mEq/L CO2 (test code = 2027-9) 26 24- 31 mEq/L Anion gap (test code = 65713-3) 13@ANIO 7- 15 mEq/L BUN (test code = 3094-0) 16 mg/dL 6-20 Creatinine (test code = 2160-0) 0.60 mg/dL 0.5-0.9 Glucose (test code = 2345-7) 101 mg/dL 65-99 H Calcium (test code = 32099-3) 10.6 mg/dL 8.3-10.2 H Protein (test code = 2885-2) 8.1 g/dL 6.3-8.3 Pipubnr3011.6-7.0 g/dL1 bpzy2707.4-7.6 g/dL7 months-0gzjf326.1-7.3 g/dL1-2 gnerd822.6-7.5 g/dL>3 lczol820.0-8.0 g/qL35-3940614.3-8.3 g/dL Albumin (test code = 1751-7) 4.8 g/dL 3.5-5 A/G ratio (test code = 1759-0) 1.5 0.7-3.8 Alkaline phosphatase (test code = 6768-6) 137 U/L 35-104 H AST (test code = 1920-8) 28 U/L 10-35 ALT (test code = 1742-6) 28 U/L 5-50 Total bilirubin (test code = 1974-2) 0.3 mg/dL 0-1.2 Lab Interpretation (test code = 09334-9) Abnormal Calvin MethodistLipase [id number] 22:51:36* Test Item Value Reference Range Interpretation Comments Lipase (test code = 3040-3) 38 U/L 13-60 Calvin MethodistEstimated [id number] 22:51:35* Test Item Value Reference Range Interpretation Comments Estimated GFR (test code = 5488) >=90 mL/min/1.73 m2 Catergory Units InterpretationG1 >=90 Normal or highG2 60-89 Mildly dxiafdjkwL1v 45-59 Mildly to moderately lpfzrnfnrZ0b 30-44 Moderately to severely decreasedG4 15-29 Severely decreasedG5 <15 Kidney failureThe eGFR was calculated using the Chronic Kidney Disease Epidemiology Collaboration (CKD-EPI) equation. Interpretation is based on recommendations of the National Kidney Foundation-Kidney Disease Outcomes Quality Initiative (NKF-KDOQI) published in 2014. Calvin MethodistCBC with platelet and [id number] 22:36:50* Test Item Value Reference Range Interpretation Comments WBC (test code = 88056-3) 6.33 4.50- 11.00 k/uL RBC (test code = 95281-3) 5.14 m/uL 4.2-5.5 HGB (test code = 718-7) 14.4 g/dL 12-16 HCT (test code = 4544-3) 44.9 % 37-47 MCV (test code = 787-2) 87.4 fL 82-100 MCH (test code = 785-6) 28.0 pg 27-34 MCHC (test code = 786-4) 32.1 g/dL 31-37 RDW - SD (test code = 58355-8) 43.8 fL 37-55 MPV (test code = 24634-6) 9.2 fL 8.8-13.2 Platelet count (test code = 07563-1) 279 150- 400 k/uL Nucleated RBC (test code = 12041-2) 0.00 /100 WBC Neutrophils (test code = 21011-3) 64.5 % 39-69 Lymphocytes (test code = 87498-0) 26.2 % 25-45 Monocytes (test code = 77203-2) 6.0 % 0-10 Eosinophils (test code = 73854-6) 2.5 % 0-5 Basophils (test code = 66905-5) 0.5 % 0-1 Zachariah LoeraG qualitative, urine aiavln3319-18-54 22:36:30* Test Item Value Reference Range Interpretation Comments hCG qualitative, urine (test code = 2106-3) Negative Negative The manufacturers stated sensitivity of HcG test for serum is >/= 10 mIU/ml and urine is >/= 20mIU/ml. Zachariah CuiistUrine mjpqcxj2094-46-44 22:34:30* Test Item Value Reference Range Interpretation Comments Urine culture (test code = 1190438) SEE COMMENT Bacteriuria screen negative. Zachariah LoeraUrinalysis screen and microscopy, with reflex to culture 2019-12-09 22:34:27* Test Item Value Reference Range Interpretation Comments Specimen site (test code = 6440850) Clean catch Color, UA (test code = 5778-6) Yellow Appearance, UA (test code = 5767-9) Clear Specific gravity, UA (test code = 5811-5) 1.017 1.001-1.035 pH, UA (test code = 5803-2) 5.0 5.0-8.5 Protein, UA (test code = 60321-0) Negative Negative Glucose, UA (test code = 14935-7) Negative Negative Ketones, UA (test code = 2514-8) Negative Negative Bilirubin, UA (test code = 5770-3) Negative Negative Blood, UA (test code = 5794-3) Negative Negative Nitrite, UA (test code = 5802-4) Negative Negative Urobilinogen, UA (test code = 41842-4) Negative <2.0 Leukocyte esterase, UA (test code = 5799-2) Negative Negative Epithelial cells, UA (test code = 5787-7) Few Few /HPF WBC, UA (test code = 5821-4) 0-5 0- 4 /HPF RBC, UA (test code = 52939-3) 0-5 0- 5 /HPF Bacteria, UA (test code = 71718-8) Few None seen Yeast, UA (test code = 86318-8) None seen Yeast with pseudohyphae, UA (test code = 20485-2) None seen [facility] MethodistBlood culture, aerobic & swkdsbqjd7649-54-65 06:33:03* Test Item Value Reference Range Interpretation Comments Blood culture isolate (test code = 600-7) No growth after 5 days of incubation. Specimen InformationSpecimen Source: BloodSpecimen Site: Unspecified [facility] MethodistBasic metabolic hdcmu6775-99-30 06:14:38* Test Item Value Reference Range Interpretation Comments Sodium (test code = 2951-2) 140 135- 148 mEq/L Potassium (test code = 2823-3) 3.6 3.5- 5.0 mEq/L Chloride (test code = 2075-0) 105 98- 112 mEq/L CO2 (test code = 8-9) 23 24- 31 mEq/L L Anion gap (test code = 05524-3) 12@ANIO 7- 15 mEq/L BUN (test code = 3094-0) 12 mg/dL 6-20 Creatinine (test code = 2160-0) 0.60 mg/dL 0.5-0.9 Glucose (test code = 2345-7) 94 mg/dL 65-99 Calcium (test code = 39460-7) 9.0 mg/dL 8.3-10.2 Lab Interpretation (test code = 81287-6) Abnormal [facility] MethodistMagnesium jwxdh4061-58-40 06:14:38* Test Item Value Reference Range Interpretation Comments Magnesium (test code = 07750-9) 2.2 mg/dL 1.6-2.6 [facility] MethodistLactic acid level, SEPSIS - Now and repeat 2x every 3 hours 2019-09-24 23:52:29* Test Item Value Reference Range Interpretation Comments Lactic acid (test code = 05580-4) 0.7 mmol/L 0.5-2.2 [facility] MethodistProthrombin time with THK1274-03-32 18:10:58* Test Item Value Reference Range Interpretation Comments Prothrombin time (test code = 5902-2) 14.2 11.5- 14.5 sec INR (test code = 33216-7) 1.1 Th e International Normalized Ratio (INR) is a therapeutic monitoring tool for patients who are stable on oral anticoagulant therapy. An INR of 2.0-3.0 is suggested for deep vein thrombosis/pulmonary embolism. [facility] time, pltprrlil5518-10-97 18:10:58* Test Item Value Reference Range Interpretation Comments PTT (test code = 75781-1) 34.3 23.0- 36.0 sec PTT therapeutic range for unfractionated heparin is61.0-112.0 seconds which corresponds to Anti-Xa0.3-0.7 U/ml. [facility] ozupuyxm6839-46-21 18:00:02* Test Item Value Reference Range Interpretation Comments WBC (test code = 52397-4) 8.72 4.50- 11.00 k/uL RBC (test code = 36138-2) 4.48 m/uL 4.2-5.5 HGB (test code = 718-7) 12.6 g/dL 12-16 HCT (test code = 4544-3) 40.4 % 37-47 MCV (test code = 787-2) 90.2 fL 82-100 MCH (test code = 785-6) 28.1 pg 27-34 MCHC (test code = 786-4) 31.2 g/dL 31-37 RDW - SD (test code = 21719-9) 44.9 fL 37-55 MPV (test code = 15825-4) 9.3 fL 8.8-13.2 Platelet count (test code = 88890-7) 238 150- 400 k/uL Nucleated RBC (test code = 82582-1) 0.00 /100 WBC [facility] Lnhyk1285-98-00 05:23:00* Test Item Value Reference Range Interpretation Comments White Blood Count (test code = 6690-2) 5.37 4.8-10.8 [facility] Blood Whmxo6001-76-49 05:23:00* Test Item Value Reference Range Interpretation Comments Red Blood Count (test code = 789-8) 4.27 3.6-5.1 [facility] HospitalHemoglobin2019-08-30 05:23:00* Test Item Value Reference Range Interpretation Comments Hemoglobin (test code = 62557-2) 11.9 12.0-16.0 L [facility] HospitalHematocrit2019-08-30 05:23:00* Test Item Value Reference Range Interpretation Comments Hematocrit (test code = 4544-3) 37.8 34.2-44.1 [facility] HospitalMean Corpuscular Fjsgod9025-84-96 05:23:00* Test Item Value Reference Range Interpretation Comments Mean Corpuscular Volume (test code = 787-2) 88.5 81-99 [facility] HospitalMean Corpuscular Sxzylhmmje9062-69-06 05:23:00* Test Item Value Reference Range Interpretation Comments Mean Corpuscular Hemoglobin (test code = 785-6) 27.9 28-32 L [facility] HospitalMean Corpuscular Hemoglobin Concent 2019-07-12 05:23:00* Test Item Value Reference Range Interpretation Comments Mean Corpuscular Hemoglobin Concent (test code = 786-4) 31.5 31-35 [facility] HospitalRed Cell Distribution Vaojl7946-89-89 05:23:00* Test Item Value Reference Range Interpretation Comments Red Cell Distribution Width (test code = 82611-8) 14.1 11.7 -14.4 [facility] HospitalPlatelet Ptksg3312-24-07 05:23:00* Test Item Value Reference Range Interpretation Comments Platelet Count (test code = 777-3) 238 140-360 [facility] HospitalNeutrophils (%) (Auto)2019-07-12 05:23:00 * Test Item Value Reference Range Interpretation Comments Neutrophils (%) (Auto) (test code = 34755-3) 68.1 38.7-80.0 [facility] HospitalLymphocytes (%) (Auto)2019-07-12 05:23:00 * Test Item Value Reference Range Interpretation Comments Lymphocytes (%) (Auto) (test code = 736-9) 18.6 18.0-39.1 [facility] HospitalMonocytes (%) (Auto)2019-07-12 05:23:00* Test Item Value Reference Range Interpretation Comments Monocytes (%) (Auto) (test code = 5905-5) 8.4 4.4-11.3 [facility] HospitalEosinophils (%) (Auto)2019-07-12 05:23:00 * Test Item Value Reference Range Interpretation Comments Eosinophils (%) (Auto) (test code = 713-8) 4.1 0.0-6.0 [facility] HospitalBasophils (%) (Auto)2019-07-12 05:23:00* Test Item Value Reference Range Interpretation Comments Basophils (%) (Auto) (test code = 706-2) 0.2 0.0-1.0 [facility] HospitalIM GRANULOCYTES %2019-07-12 05:23:00* Test Item Value Reference Range Interpretation Comments IM GRANULOCYTES % (test code = IM GRANULOCYTES %) 0.6 0.0- 1.0 [facility] HospitalNeutrophils # (Auto)2019-07-12 05:23:00* Test Item Value Reference Range Interpretation Comments Neutrophils # (Auto) (test code = 751-8) 3.7 2.1-6.9 [facility] HospitalLymphocytes # (Auto)2019-07-12 05:23:00* Test Item Value Reference Range Interpretation Comments Lymphocytes # (Auto) (test code = 84197-4) 1.0 1.0-3.2 [facility] HospitalMonocytes # (Auto)2019-07-12 05:23:00* Test Item Value Reference Range Interpretation Comments Monocytes # (Auto) (test code = 742-7) 0.5 0.2-0.8 [facility] HospitalEosinophils # (Auto)2019-07-12 05:23:00* Test Item Value Reference Range Interpretation Comments Eosinophils # (Auto) (test code = 711-2) 0.2 0.0-0.4 [facility] HospitalBasophils # (Auto)2019-07-12 05:23:00* Test Item Value Reference Range Interpretation Comments Basophils # (Auto) (test code = 704-7) 0.0 0.0-0.1 [facility] HospitalAbsolute Immature Granulocyte (auto 2019-07-12 05:23:00* Test Item Value Reference Range Interpretation Comments Absolute Immature Granulocyte (auto (rica t code = Absolute Immature Granulocyte (auto) 0.03 0-0.1 [facility] HospitalBlood Xjgiuio2038-28-08 22:05:00* Test Item Value Reference Range Interpretation Comments Blood Culture (test code = 40606807) NO GROWTH AFTER 24 HOURS [facility] Bswcm6175-76-08 05:55:00* Test Item Value Reference Range Interpretation Comments Sodium Level (test code = 2951-2) 140 136-145 [facility] HospitalPotassium Fqgdx4120-38-66 05:55:00* Test Item Value Reference Range Interpretation Comments Potassium Level (test code = 2823-3) 3.8 3.5-5.1 [facility] HospitalChloride Wyclp3261-62-27 05:55:00* Test Item Value Reference Range Interpretation Comments Chloride Level (test code = 2075-0) 108 98-107 H [facility] HospitalCarbon Dioxide Zxnsu7566-06-15 05:55:00* Test Item Value Reference Range Interpretation Comments Carbon Dioxide Level (test code = 2028-9) 23 - [facility] HospitalAnion Weh4953-00-06 05:55:00* Test Item Value Reference Range Interpretation Comments Anion Gap (test code = 26408-2) 12.8 8-16 [facility] HospitalBlood Urea Krqqrdun5048-23-08 05:55:00* Test Item Value Reference Range Interpretation Comments Blood Urea Nitrogen (test code = 3094-0) 15 7-26 [facility] HospitalCreatinine2019-08-29 05:55:00* Test Item Value Reference Range Interpretation Comments Creatinine (test code = 2160-0) 0.68 0.57-1.11 [facility] HospitalBUN/Creatinine Etcxu1786-75-90 05:55:00* Test Item Value Reference Range Interpretation Comments BUN/Creatinine Ratio (test code = 3097-3) 22 6-25 [facility] HospitalEstimat Glomerular Filtration Rate 2019-07-11 05:55:00* Test Item Value Reference Range Interpretation Comments Estimat Glomerular Filtration Rate (test code = 273232848) > 60 >60 Ranges were taken from the National Kidney Disease Education Program and the [facility] literature.Reference ranges:60 or greater: Geotlp93-98 ( for 3 consecutive months): Chronic kidney disease 15 or less: Kidney failureCHI St. [facility] – Memorial LufkinGlucose Hhsni0071-27-35 05:55:00* Test Item Value Reference Range Interpretation Comments Glucose Level (test code = XRT7696) 107 74-118 [facility] HospitalCalcium Yigpz7737-61-16 05:55:00* Test Item Value Reference Range Interpretation Comments Calcium Level (test code = 10184-9) 8.4 8.4-10.2 [facility] HospitalTotal Wvzduaplk0395-00-55 05:55:00* Test Item Value Reference Range Interpretation Comments Total Bilirubin (test code = 1975-2) 0.4 0.2-1.2 [facility] HospitalAspartate Amino Transf (AST/SGOT) 2019-07-11 05:55:00* Test Item Value Reference Range Interpretation Comments Aspartate Amino Transf (AST/SGOT) (test code = Aspartate Amino Transf (AST/SGOT)) 16 5-34 [facility] HospitalAlanine Aminotransferase (ALT/SGPT) 2019-07-11 05:55:00* Test Item Value Reference Range Interpretation Comments Alanine Aminotransferase (ALT/SGPT) (test code = 1742-6) 15 0-55 [facility] HospitalTotal Nnpvkzv8560-67-97 05:55:00* Test Item Value Reference Range Interpretation Comments Total Protein (test code = 2885-2) 5.9 6.5-8.1 L [facility] HospitalAlbumin2019-08-29 05:55:00* Test Item Value Reference Range Interpretation Comments Albumin (test code = 1751-7) 3.0 3.5-5.0 L [facility] HospitalGlobulin2019-08-29 05:55:00* Test Item Value Reference Range Interpretation Comments Globulin (test code = 01756-1) 2.9 2.3-3.5 [facility] HospitalAlbumin/Globulin Tfwqb4613-77-59 05:55:00 * Test Item Value Reference Range Interpretation Comments Albumin/Globulin Ratio (test code = 1759-0) 1.0 0.8-2.0 [facility] HospitalAlkaline Wrzlwvykxmm7550-81-69 05:55:00* Test Item Value Reference Range Interpretation Comments Alkaline Phosphatase (test code = 6768-6) 108 40-150 [facility] HospitalLactic Acid Qujzc8999-89-35 22:19:00* Test Item Value Reference Range Interpretation Comments Lactic Acid Level (test code = Lactic Acid Level) 12.9 4.5- 19.8 [facility] HospitalCXR 2 VIEW - NCND4936-69-09 21:26:00 [facility] [address] [place] [address] Patient Name: SUYAPA BELTRAN MR #: [id number] : 1970 Age/Sex: 48/F Req #: [id number] Adm Physician: Ordered by: EDWARD SURESH MD Report #: [id number] Location: [facility] Room/Bed: Procedure: 0 828-0013 HOPD/CXR 2 VIEW - HOPD Exam Date: 07/10/19 Exam Time: 2104 REPORT STATUS: Sign ed EXAMINATION: PA and lateral views of the chest. COMPARISON: Chest radiograph 12/09/2018 CLINICAL HISTORY: Chest and abdominal pain DISCUSSION: Lines/tubes: None. Lungs: The lungs are well inflated an d clear. There is no evidence of pneumonia or pulmonary edema. Pleura: T here is no pleural effusion or pneumothorax. Heart and mediastinum: The ca rdiomediastinal silhouette is normal. Bones and soft tissues: No acute bon y abnormalities. Gastric band apparatus is noted in the upper abdomen. I MPRESSION: No acute cardiopulmonary abnormalities. Signed by : Dr. Regan Jones M.D. on 07/10/2019 9:27 PM Dictated By: REGAN JONES MD 26 Transcribed By: SIMONA on 07/10/192126 COPY TO: EDWARD SURESH MD CT ABD/PEL WO GGEZLBMU-PMNT3305-84-28 21:19:00 [place] [address] Patient Name: SUYAPA BELTRAN MR #: [id number] : 1970 Age/Sex: 48/F Req #: [id number] Adm Physician: Ordered by: EDWARD SURESH MD Report #: [id number] Location: [facility] Room/Bed: Procedure: 0 828-0014 HOPD/CT ABD/PEL WO CONTRAST-HOPD Exam Date: 07/10/19 Exam Time: 2104 ST ATUS: Signed EXAMINATION: CT of the abdomen and pelvis without contrast. TECHNIQUE: Spiral CT images of the abdomen and pelvis were performed from the lung bases to the lesser trochanters. No intravenous contrast was given per referring physician request. Coronal and sagittal reformatted images were obt ained. COMPARISON: CT abdomen and pelvis with contrast 02/14/2019 CLINIC AL HISTORY:Rectal bleeding, left lower quadrant abdominal pain DISCUSS ION: ABSENCE OF INTRAVENOUS CONTRAST DECREASES SENSITIVITY FOR DETECTION OF FO RA LESIONS AND VASCULAR PATHOLOGY. ABDOMEN/PELVIS: LOWER THORAX: Grou ndglass opacity compatible with subsegmental atelectasis laterally within the right lower lobe, improved relative to 02/14/2019. Similar opacity in the lingul a is unchanged. HEPATOBILIARY:No focal hepatic lesions. No biliary ductal dilation. The gallbladder is normal. SPLEEN: No splenomegaly. PANC REAS: No focal masses or ductal dilatation. ADRENALS: No adrenal nodules. KIDNEYS/URETERS: Left renal cyst is again noted, though is less conspicuous on the current study in the absence of intravenous contrast. No hydronephrosis or calculus. PELVIC ORGANS/BLADDER: Urinary bladder is collapsed and poo rly evaluated. Uterus is not identified and has presumably been resected. No a dnexal mass. PERITONEUM/RETROPERITONEUM: No free air or fluid. LYMPH N ODES: No pelvic sidewall, retroperitoneal, or mesenteric lymphadenopathy. VESSELS: Limited evaluation without intravenous contrast. The abdominal aorta is nonaneurysmal. GI TRACT: Gastric band apparatus encircles the proximal stomach, with reservoir in the left upper quadrant subcutaneous fat. The large bowel shows no evidence of distention or wall thickening. The appendix is not definitively identified. No right lower quadrant inflammation. There is no sm all bowel dilatation to suggest obstruction. BONES AND SOFT TISSUES: No f ocal soft tissue abnormalities. No osseous destructive lesion. Mild degenerati ve disc changes and facet arthropathy of the lower lumbar spine. IMPRESSI ON: No acute intra-abdominal or pelvic CT abnormalities. Signed by: Elena Jones M.D. on 07/10/2019 9:25 PM Dictated By: REGAN JONES MD 24 Transcribed By: Buck FLORES on 07/10/192124 COPY TO: EDWARD SURESH MD GALL LKRKLAN-IQCT5884-79-18 00:19:00 [place] [address] Patient Name: SUYAPA WALTER MR #: [id number] : 1970 Age/Sex: 48/F Req #: [id number] [facility] Physician: Ordered by: CHU LEMONS MD Report #: [id number] Location: [facility] Room/Bed: Proce dure: [id number] HOPD/US GALL BLADDER-HOPD Exam Date: 05/29/19 Exam Time: [address] ATUS: Signed RIGHT UPPER QUADRANT ULTRASOUND TECHNIQUE: Ultrasound bulmaro luation of the right upper quadrant abdomen. Color Doppler evaluation was uti lized to supplement the evaluation. Per the technologist performing the exam, the exam is markedly limited secondary to body habitus and regional bowel gas. HISTORY: Right upper quadrant pain. COMPARISON: CT of the abdomen February 14, 2019. DISCUSSION: LIVER: No focal lesion identified. The liver measures 18 cm in length in the right mid-clavicular line. Diffusely increased echogenicity. BILIARY: The gallbladder is contracted, no definitive shadowing calculus. The sonographic Yen's sign is reported as negative. Common bile duct measures 0.5 cm. RIGHT KIDNEY: 13 cm in length. No hydronephrosis, solid mass, or cystic lesion identified. PANCREAS: Pa rtially obscured by regional bowel gas, but no abnormality identified within t his limitation. PERITONEUM: No free fluid. VASCULATURE: The vi sualized portions of the aorta and inferior vena cava appear unremarkable. T he portal vein is patent with hepatopedal flow. IMPRESSION: 1. Contr acted gallbladder without a visible stone. 2. Hepatomegaly and hepatic steato sis. Signed by: Dr. Andriy Caro D.O., M.M.M. on 05/30/2019 12:22 AM Dictated By: ANDRIY CARO DO COPY TO: MONGE MD CT ABD/PEL WITH SOVSANRG-BTUY3052-32-04 12:00:00 [place] [address] Patient Name: SUYAPA WALTER MR #: [id number] : 1970 Age/Sex: 48/F [id number] Req #: [id number] Adm Physician: Ordered by: FELTON EGAN MD Report #: [id number] Location: [facility] Room/Bed: Procedur e: [id number] HOPD/CT ABD/PEL WITH CONTRAST-HOPD Exam Date: Exam Time: REPORT STATUS: Signed EXAM: CT ABDOMEN AND PELVIS with IV CONTRAST DATE: 02/14/2019 Time sta mp on Exam: 10:48 AM INDICATION: Left lower quadrant pain and rectal bleeding COMPARISON: Abdominal and pelvic CT dated 07/30/2018 TECHNIQUE: The abdomen and pelvis were scanned using a multidetector helical scanner. Coronal and sa gittal reformations were obtained. Routine protocol performed. Technique modification to maintain the lowest dose to the patient was accomplished. IV Contrast: 100 cc of Isovue-300 Oral Contrast: None Radiation Dose: Total DLP 814.26 mGy*cm Estimated effective dose: DLP x 0.015 x size factor FI NDINGS: LOWER THORAX: No consolidations LIVER: No masses BILIARY: The g allbladder is unremarkable. No ductal dilatation. SPLEEN: No masses PANC REAS: No masses ADRENALS: No nodules KIDNEYS: Symmetric perfusion. No enh ancing masses. No hydronephrosis. Stable left upper pole renal cyst. GI TRA CT: No distention, wall thickening or evidence of obstruction. There is a lance hoang lap band and the reservoir present. Postoperative changes of a sigmoid bow el resection. VESSELS: Unremarkable PERITONEUM/RETROPERITONEUM: No free a ir or fluid LYMPH NODES: No lymphadenopathy REPRODUCTIVE ORGANS: Unremark able BLADDER: Unremarkable SOFT TISSUES: Unremarkable BONES: No suspici ous bone lesions. IMPRESSION: No acute abnormality within the abdomen or pelvis. No obvious findings to explain rectal bleeding. Signed by: Dr. Alvin Sanchez DO on 02/14/2019 12:11 PM Dictated By: LEIGH ANN SANCHEZ DO Elect ronically Signed By: LEIGH ANN SANCHEZ DO on 02/14/19 1211 Transcribed By: SIMONA on 02/14/19 1211 COPY TO: FELTON EGAN MD CHEST 2 VIEWS 2018-12-09 17:26:00 [place] [address] Patient Name: SUYAPA BELTRAN MR #: [id number] : 1970 Age/Sex: 48/F Req #: [id number] Adm Physician: Ordered by: QUOC JACOBSEN TAX ADJUSTER Report #: [id number] Location: ER Room/Bed: Procedure: DX/CHEST 2 VIEWS Exam Date: 12/09/18 Exam Ti me: 1220 REPORT STATUS: Signed M [id number] EXAMINATION: 2 view chest x-ray INDICATION: Chest pain and shortness of breath. COMPARISON: None FINDINGS: PA and lateral views TUBES and LINES: None. LUNGS: Limited by body habitus. Lungs are well inflated. There is no evidence of pneumonia or pulmonary letitia a. PLEURA: No pleural effusion or pneumothorax. HEART AND MEDIASTINUM : The cardiomediastinal silhouette is unremarkable. BONES AND SOFT TIS SUES: No acute osseous lesion. Soft tissues are unremarkable. UPPER ABD OMEN: No free air under the diaphragm. IMPRESSION: No acute thoracic abnormality. Signed by: Dr. Imer Navarro MD on 12/09/2018 7:16 PM Dictated By: IMER NAVARRO MD 15 COPY TO: BONNIE JACOBSEN L TAX ADJUSTER Creatine Kinase EZ0093-12-60 12:44:00* Test Item Value Reference Range Interpretation Comments Creatine Kinase MB (test code = 43420-5) 1.00 0-5.0 [place] 03368019-01-27 12:44:00* Test Item Value Reference Range Interpretation Comments Troponin I (test code = VWV0459) < 0.001 0-0.300 [facility] HospitalCreatine Kinase BX3767-10-84 12:44:00* Test Item Value Reference Range Interpretation Comments Creatine Kinase MB (test code = 39871-6) 1.00 0-5.0 [place] 03368019-01-27 12:44:00* Test Item Value Reference Range Interpretation Comments Troponin I (test code = HLN7285) < 0.001 0-0.300 [facility] HospitalCreatine Kinase HW4573-75-94 12:44:00* Test Item Value Reference Range Interpretation Comments Creatine Kinase MB (test code = 15249-6) 1.00 0-5.0 [place] 03368019-01-27 12:44:00* Test Item Value Reference Range Interpretation Comments Troponin I (test code = ITH5375) < 0.001 0-0.300 [facility] HospitalCreatine Kinase YK6062-04-11 12:44:00* Test Item Value Reference Range Interpretation Comments Creatine Kinase MB (test code = 40764-3) 1.00 0-5.0 [place] 03368019-01-27 12:44:00* Test Item Value Reference Range Interpretation Comments Troponin I (test code = GPT1338) < 0.001 0-0.300 [facility] HospitalD-Dimer Quantitative (PE/DVT)2018-12-09 12:28:00* Test Item Value Reference Range Interpretation Comments D-Dimer Quantitative (PE/DVT) (test code = 25489-2) 0.14 0. 00-0.45 As with all in vitro diagnostic tests, the test results should be interpreted by the physician in conjunction with clinical findings and other test results.Test results are reported in NEW D-dimer units(ug/mLFEU).[facility] HospitalD-Dimer Quantitative (PE/DVT)2018-12-09 12:28:00* Test Item Value Reference Range Interpretation Comments D-Dimer Quantitative (PE/DVT) (test code = 79997-4) 0.14 0. 00-0.45 As with all in vitro diagnostic tests, the test results should be interpreted by the physician in conjunction with clinical findings and other test results.Test results are reported in NEW D-dimer units(ug/mLFEU).[facility] HospitalD-Dimer Quantitative (PE/DVT)2018-12-09 12:28:00* Test Item Value Reference Range Interpretation Comments D-Dimer Quantitative (PE/DVT) (test code = 63931-5) 0.14 0. 00-0.45 As with all in vitro diagnostic tests, the test results should be interpreted by the physician in conjunction with clinical findings and other test results.Test results are reported in NEW D-dimer units(ug/mLFEU).[facility]D-Dimer Quantitative (PE/DVT)2018-12-09 12:28:00* Test Item Value Reference Range Interpretation Comments D-Dimer Quantitative (PE/DVT) (test code = 81454-5) 0.14 0. 00-0.45 As with all in vitro diagnostic tests, the test results should be interpreted by the physician in conjunction with clinical findings and other test results.Test results are reported in NEW D-dimer units(ug/mLFEU).[facility]2019-01-27 12:19:00* Test Item Value Reference Range Interpretation Comments Sodium Level (test code = 2951-2) 141 136-145 [facility] HospitalPotassium Vfnog5267-62-08 12:19:00* Test Item Value Reference Range Interpretation Comments Potassium Level (test code = 2823-3) 3.9 3.5-5.1 [facility] HospitalChloride Ptcib2891-31-82 12:19:00* Test Item Value Reference Range Interpretation Comments Chloride Level (test code = 2075-0) 107 98-107 [facility] HospitalCarbon Dioxide Cbgjx8620-29-53 12:19:00* Test Item Value Reference Range Interpretation Comments Carbon Dioxide Level (test code = 2028-9) 23 22-29 [facility] HospitalAnion Iav1569-41-55 12:19:00* Test Item Value Reference Range Interpretation Comments Anion Gap (test code = 11956-0) 14.9 8-16 [facility] HospitalBlood Urea Wzfjxovq2283-54-29 12:19:00* Test Item Value Reference Range Interpretation Comments Blood Urea Nitrogen (test code = 3094-0) 19 7-26 [facility] HospitalCreatinine2019-01-27 12:19:00* Test Item Value Reference Range Interpretation Comments Creatinine (test code = 2160-0) 0.66 0.57-1.11 [facility] HospitalBUN/Creatinine Ezqcy2571-73-27 12:19:00* Test Item Value Reference Range Interpretation Comments BUN/Creatinine Ratio (test code = 3097-3) 29 6-25 H [facility] HospitalEstimat Glomerular Filtration Rate 2018-12-09 12:19:00* Test Item Value Reference Range Interpretation Comments Estimat Glomerular Filtration Rate (test code = 020601519) > 60 >60 Ranges were taken from the National Kidney Disease Education Program and the [facility] literature.Reference ranges:60 or greater: Cgpunf21-53 ( for 3 consecutive months): Chronic kidney disease 15 or less: Kidney failureMethodist [facility] HospitalGlucose Xasko0592-04-98 12:19:00* Test Item Value Reference Range Interpretation Comments Glucose Level (test code = XBS6188) 82 74-118 [facility] HospitalCalcium Assvo5649-83-19 12:19:00* Test Item Value Reference Range Interpretation Comments Calcium Level (test code = 39873-9) 9.3 8.4-10.2 [facility] HospitalMagnesium Hwtil1938-61-97 12:19:00* Test Item Value Reference Range Interpretation Comments Magnesium Level (test code = 72653-6) 2.3 1.3-2.1 H [facility] HospitalTotal Prrnonvxi1709-11-79 12:19:00* Test Item Value Reference Range Interpretation Comments Total Bilirubin (test code = 1975-2) 0.7 0.2-1.2 [facility] HospitalAspartate Amino Transf (AST/SGOT) 2018-12-09 12:19:00* Test Item Value Reference Range Interpretation Comments Aspartate Amino Transf (AST/SGOT) (test code = Aspartate Amino Transf (AST/SGOT)) 16 5-34 [facility] HospitalAlanine Aminotransferase (ALT/SGPT) 2018-12-09 12:19:00* Test Item Value Reference Range Interpretation Comments Alanine Aminotransferase (ALT/SGPT) (test code = 1742-6) 19 0-55 [facility] Djfjrkq4895-61-24 12:19:00* Test Item Value Reference Range Interpretation Comments Total Protein (test code = 2885-2) 7.1 6.5-8.1 [facility] HospitalAlbumin2019-01-27 12:19:00* Test Item Value Reference Range Interpretation Comments Albumin (test code = 1751-7) 3.9 3.5-5.0 [facility] HospitalGlobulin2019-01-27 12:19:00* Test Item Value Reference Range Interpretation Comments Globulin (test code = 31800-5) 3.2 2.3-3.5 [facility] HospitalAlbumin/Globulin Oxqze1183-21-36 12:19:00 * Test Item Value Reference Range Interpretation Comments Albumin/Globulin Ratio (test code = 1759-0) 1.2 0.8-2.0 [facility] HospitalAlkaline Gspqwenmptq1638-67-77 12:19:00* Test Item Value Reference Range Interpretation Comments Alkaline Phosphatase (test code = 6768-6) 141 40-150 [facility] HospitalCreatine Dhvjkv9660-19-78 12:19:00* Test Item Value Reference Range Interpretation Comments Creatine Kinase (test code = 2157-6) 76 29-168 [facility] Ocvdl7989-44-27 12:19:00* Test Item Value Reference Range Interpretation Comments Sodium Level (test code = 2951-2) 141 136-145 [facility] HospitalPotassium Iddlj0632-21-17 12:19:00* Test Item Value Reference Range Interpretation Comments Potassium Level (test code = 2823-3) 3.9 3.5-5.1 [facility] HospitalChloride Vawub7977-08-63 12:19:00* Test Item Value Reference Range Interpretation Comments Chloride Level (test code = 2075-0) 107 98-107 [facility] HospitalCarbon Dioxide Rkqke9118-38-87 12:19:00* Test Item Value Reference Range Interpretation Comments Carbon Dioxide Level (test code = 2028-9) 23 22-29 [facility] HospitalAnion Jcr8675-35-69 12:19:00* Test Item Value Reference Range Interpretation Comments Anion Gap (test code = 49134-8) 14.9 8-16 [facility] HospitalBlood Urea Ephfhtqd3925-90-16 12:19:00* Test Item Value Reference Range Interpretation Comments Blood Urea Nitrogen (test code = 3094-0) 19 7-26 [facility] HospitalCreatinine2019-01-27 12:19:00* Test Item Value Reference Range Interpretation Comments Creatinine (test code = 2160-0) 0.66 0.57-1.11 [facility] HospitalBUN/Creatinine Dglhy4433-80-92 12:19:00* Test Item Value Reference Range Interpretation Comments BUN/Creatinine Ratio (test code = 3097-3) 29 6-25 H [facility] HospitalEstimat Glomerular Filtration Rate 2018-12-09 12:19:00* Test Item Value Reference Range Interpretation Comments Estimat Glomerular Filtration Rate (test code = 960538646) > 60 >60 Ranges were taken from the National Kidney Disease Education Program and the [facility] literature.Reference ranges:60 or greater: Wfpspl93-03 ( for 3 consecutive months): Chronic kidney disease 15 or less: Kidney failureMethodist Southlake HospitalGlucose Vowsr0082-88-71 12:19:00* Test Item Value Reference Range Interpretation Comments Glucose Level (test code = WNB6251) 82 74-118 [facility] HospitalCalcium Pfwnq0086-90-26 12:19:00* Test Item Value Reference Range Interpretation Comments Calcium Level (test code = 06262-1) 9.3 8.4-10.2 [facility] HospitalMagnesium Qvnfe8979-76-13 12:19:00* Test Item Value Reference Range Interpretation Comments Magnesium Level (test code = 60378-3) 2.3 1.3-2.1 H [facility] HospitalTotal Fweslombb2363-83-28 12:19:00* Test Item Value Reference Range Interpretation Comments Total Bilirubin (test code = 1975-2) 0.7 0.2-1.2 [facility] HospitalAspartate Amino Transf (AST/SGOT) 2018-12-09 12:19:00* Test Item Value Reference Range Interpretation Comments Aspartate Amino Transf (AST/SGOT) (test code = Aspartate Amino Transf (AST/SGOT)) 16 5-34 [facility] HospitalAlanine Aminotransferase (ALT/SGPT) 2018-12-09 12:19:00* Test Item Value Reference Range Interpretation Comments Alanine Aminotransferase (ALT/SGPT) (test code = 1742-6) 19 0-55 [facility] HospitalTotal Pnobovp9386-61-83 12:19:00* Test Item Value Reference Range Interpretation Comments Total Protein (test code = 2885-2) 7.1 6.5-8.1 [facility] HospitalAlbumin2019-01-27 12:19:00* Test Item Value Reference Range Interpretation Comments Albumin (test code = 1751-7) 3.9 3.5-5.0 [facility] HospitalGlobulin2019-01-27 12:19:00* Test Item Value Reference Range Interpretation Comments Globulin (test code = 61153-1) 3.2 2.3-3.5 [facility] HospitalAlbumin/Globulin Qdifb9432-95-05 12:19:00 * Test Item Value Reference Range Interpretation Comments Albumin/Globulin Ratio (test code = 1759-0) 1.2 0.8-2.0 [facility] HospitalAlkaline Gaqhtmcvkny7110-68-36 12:19:00* Test Item Value Reference Range Interpretation Comments Alkaline Phosphatase (test code = 6768-6) 141 40-150 [facility] HospitalCreatine Pyelll4953-10-06 12:19:00* Test Item Value Reference Range Interpretation Comments Creatine Kinase (test code = 2157-6) 76 29-168 [facility] Gmcze6705-35-68 12:19:00* Test Item Value Reference Range Interpretation Comments Sodium Level (test code = 2951-2) 141 136-145 [facility] HospitalPotassium Qvkkb0813-12-48 12:19:00* Test Item Value Reference Range Interpretation Comments Potassium Level (test code = 2823-3) 3.9 3.5-5.1 [facility] HospitalChloride Odnjt8821-71-05 12:19:00* Test Item Value Reference Range Interpretation Comments Chloride Level (test code = 2075-0) 107 98-107 [facility] HospitalCarbon Dioxide Ezgtx3052-02-85 12:19:00* Test Item Value Reference Range Interpretation Comments Carbon Dioxide Level (test code = 2028-9) 23 22-29 [facility] HospitalAnion Qhn8215-61-13 12:19:00* Test Item Value Reference Range Interpretation Comments Anion Gap (test code = 21898-9) 14.9 8-16 [facility] HospitalBlood Urea Gxqovnsv9406-08-87 12:19:00* Test Item Value Reference Range Interpretation Comments Blood Urea Nitrogen (test code = 3094-0) 19 7-26 [facility] HospitalCreatinine2019-01-27 12:19:00* Test Item Value Reference Range Interpretation Comments Creatinine (test code = 2160-0) 0.66 0.57-1.11 [facility] HospitalBUN/Creatinine Svnbo4674-15-72 12:19:00* Test Item Value Reference Range Interpretation Comments BUN/Creatinine Ratio (test code = 3097-3) 29 6-25 H [facility] HospitalEstimat Glomerular Filtration Rate 2018-12-09 12:19:00* Test Item Value Reference Range Interpretation Comments Estimat Glomerular Filtration Rate (test code = 805131774) > 60 >60 Ranges were taken from the National Kidney Disease Education Program and the [facility] literature.Reference ranges:60 or greater: Wkhtgy19-19 ( for 3 consecutive months): Chronic kidney disease 15 or less: Kidney failureMethodist Southlake HospitalGlucose Fdvob5236-69-88 12:19:00* Test Item Value Reference Range Interpretation Comments Glucose Level (test code = DIT1381) 82 74-118 [facility] HospitalCalcium Ivwya2085-75-88 12:19:00* Test Item Value Reference Range Interpretation Comments Calcium Level (test code = 64018-4) 9.3 8.4-10.2 [facility] HospitalMagnesium Qmhve0825-51-76 12:19:00* Test Item Value Reference Range Interpretation Comments Magnesium Level (test code = 15347-5) 2.3 1.3-2.1 H [facility] HospitalTotal Pxoyzwxee0266-12-15 12:19:00* Test Item Value Reference Range Interpretation Comments Total Bilirubin (test code = 1975-2) 0.7 0.2-1.2 [facility] HospitalAspartate Amino Transf (AST/SGOT) 2018-12-09 12:19:00* Test Item Value Reference Range Interpretation Comments Aspartate Amino Transf (AST/SGOT) (test code = Aspartate Amino Transf (AST/SGOT)) 16 5-34 [facility] HospitalAlanine Aminotransferase (ALT/SGPT) 2018-12-09 12:19:00* Test Item Value Reference Range Interpretation Comments Alanine Aminotransferase (ALT/SGPT) (test code = 1742-6) 19 0-55 [facility] HospitalTotal Temayhj1052-22-46 12:19:00* Test Item Value Reference Range Interpretation Comments Total Protein (test code = 2885-2) 7.1 6.5-8.1 [facility] HospitalAlbumin2019-01-27 12:19:00* Test Item Value Reference Range Interpretation Comments Albumin (test code = 1751-7) 3.9 3.5-5.0 [facility] HospitalGlobulin2019-01-27 12:19:00* Test Item Value Reference Range Interpretation Comments Globulin (test code = 43506-3) 3.2 2.3-3.5 [facility] HospitalAlbumin/Globulin Qcekv9555-68-40 12:19:00 * Test Item Value Reference Range Interpretation Comments Albumin/Globulin Ratio (test code = 1759-0) 1.2 0.8-2.0 [facility] HospitalAlkaline Cyykcnoswzu3691-44-54 12:19:00* Test Item Value Reference Range Interpretation Comments Alkaline Phosphatase (test code = 6768-6) 141 40-150 [facility] HospitalCreatine Gtsget7113-86-44 12:19:00* Test Item Value Reference Range Interpretation Comments Creatine Kinase (test code = 2157-6) 76 29-168 [facility] HospitalMagnesium Ciaoj9731-66-12 12:19:00* Test Item Value Reference Range Interpretation Comments Magnesium Level (test code = 58635-7) 2.3 1.3-2.1 H [facility] HospitalCreatine Aocrha7730-68-67 12:19:00* Test Item Value Reference Range Interpretation Comments Creatine Kinase (test code = 2157-6) 76 29-168 [facility] HospitalUrine DQZ7636-51-71 12:18:00* Test Item Value Reference Range Interpretation Comments Urine WBC (test code = 5821-4) NONE 0-5 [facility] HospitalUrine CKT0573-25-19 12:18:00* Test Item Value Reference Range Interpretation Comments Urine RBC (test code = 64274-8) NONE 0-5 [facility] HospitalUrine Mbgiidno1919-13-12 12:18:00* Test Item Value Reference Range Interpretation Comments Urine Bacteria (test code = 60996-6) FEW NONE [facility] Epithelial Pjeyj8135-66-70 12:18:00 * Test Item Value Reference Range Interpretation Comments Urine Epithelial Cells (test code = 92536-5) FEW NONE [facility] RFG9722-63-20 12:18:00* Test Item Value Reference Range Interpretation Comments Urine WBC (test code = 5821-4) NONE 0-5 [facility] BMT5984-35-79 12:18:00* Test Item Value Reference Range Interpretation Comments Urine RBC (test code = 27819-1) NONE 0-5 [facility] Hobvidqf9133-01-54 12:18:00* Test Item Value Reference Range Interpretation Comments Urine Bacteria (test code = 05462-4) FEW NONE [facility] Epithelial Fubxs9272-09-07 12:18:00 * Test Item Value Reference Range Interpretation Comments Urine Epithelial Cells (test code = 47293-7) FEW NONE [facility] XLU9766-20-18 12:18:00* Test Item Value Reference Range Interpretation Comments Urine WBC (test code = 5821-4) NONE 0-5 [facility] NET8575-76-89 12:18:00* Test Item Value Reference Range Interpretation Comments Urine RBC (test code = 25420-8) NONE 0-5 [facility] Caxgathu7767-11-12 12:18:00* Test Item Value Reference Range Interpretation Comments Urine Bacteria (test code = 09637-2) FEW NONE [facility] Epithelial Vwalz8990-02-61 12:18:00 * Test Item Value Reference Range Interpretation Comments Urine Epithelial Cells (test code = 63084-9) FEW NONE [facility] EVD6565-67-16 12:18:00* Test Item Value Reference Range Interpretation Comments Urine WBC (test code = 5821-4) NONE 0-5 [facility] GXO0604-78-30 12:18:00* Test Item Value Reference Range Interpretation Comments Urine RBC (test code = 64907-0) NONE 0-5 [facility] Nlfafahb6743-94-03 12:18:00* Test Item Value Reference Range Interpretation Comments Urine Bacteria (test code = 29236-0) FEW NONE [facility] HospitalUrine Epithelial Kwmro5697-02-71 12:18:00 * Test Item Value Reference Range Interpretation Comments Urine Epithelial Cells (test code = 09170-0) FEW NONE [facility] HospitalProthrombin Xetb4571-05-43 12:09:00* Test Item Value Reference Range Interpretation Comments Prothrombin Time (test code = 5902-2) 12.6 11.9-14.5 [facility] HospitalProthromb Time International Ratio 2018-12-09 12:09:00* Test Item Value Reference Range Interpretation Comments Prothromb Time International Ratio (test code = 6301-6) 0.87 Oral Anticoagulant Therapy INR Values:1. Low Intensity Therapy 1.5 - 2.02 . Moderate Intensity Therapy 2.0 - 3.03. High Intensity Therapy(1) 2.5 - 3. 54. High Intensity Therapy(2) 3.0 - 4.05. Panic Value INR > 5.0 [facility] HospitalActivated Partial Thromboplast Time 2018-12-09 12:09:00* Test Item Value Reference Range Interpretation Comments Activated Partial Thromboplast Time (test code = 74833-3) 29.7 23.8-35.5 [facility] HospitalProthrombin Hrel7193-02-03 12:09:00* Test Item Value Reference Range Interpretation Comments Prothrombin Time (test code = 5902-2) 12.6 11.9-14.5 [facility] HospitalProthromb Time International Ratio 2018-12-09 12:09:00* Test Item Value Reference Range Interpretation Comments Prothromb Time International Ratio (test code = 6301-6) 0.87 Oral Anticoagulant Therapy INR Values:1. Low Intensity Therapy 1.5 - 2.02 . Moderate Intensity Therapy 2.0 - 3.03. High Intensity Therapy(1) 2.5 - 3. 54. High Intensity Therapy(2) 3.0 - 4.05. Panic Value INR > 5.0 [facility] HospitalActivated Partial Thromboplast Time 2018-12-09 12:09:00* Test Item Value Reference Range Interpretation Comments Activated Partial Thromboplast Time (test code = 55979-2) 29.7 23.8-35.5 [facility] HospitalProthrombin Ltnh4473-73-13 12:09:00* Test Item Value Reference Range Interpretation Comments Prothrombin Time (test code = 5902-2) 12.6 11.9-14.5 [facility] HospitalProthromb Time International Ratio 2018-12-09 12:09:00* Test Item Value Reference Range Interpretation Comments Prothromb Time International Ratio (test code = 6301-6) 0.87 Oral Anticoagulant Therapy INR Values:1. Low Intensity Therapy 1.5 - 2.02 . Moderate Intensity Therapy 2.0 - 3.03. High Intensity Therapy(1) 2.5 - 3. 54. High Intensity Therapy(2) 3.0 - 4.05. Panic Value INR > 5.0 [facility] HospitalActivated Partial Thromboplast Time 2018-12-09 12:09:00* Test Item Value Reference Range Interpretation Comments Activated Partial Thromboplast Time (test code = 27432-4) 29.7 23.8-35.5 [facility] HospitalProthrombin Wdel2563-07-98 12:09:00* Test Item Value Reference Range Interpretation Comments Prothrombin Time (test code = 5902-2) 12.6 11.9-14.5 [facility] HospitalProthromb Time International Ratio 2018-12-09 12:09:00* Test Item Value Reference Range Interpretation Comments Prothromb Time International Ratio (test code = 6301-6) 0.87 Oral Anticoagulant Therapy INR Values:1. Low Intensity Therapy 1.5 - 2.02 . Moderate Intensity Therapy 2.0 - 3.03. High Intensity Therapy(1) 2.5 - 3. 54. High Intensity Therapy(2) 3.0 - 4.05. Panic Value INR > 5.0 [facility] HospitalActivated Partial Thromboplast Time 2018-12-09 12:09:00* Test Item Value Reference Range Interpretation Comments Activated Partial Thromboplast Time (test code = 84362-4) 29.7 23.8-35.5 [facility] HospitalUrine Kjuey0448-21-05 12:00:00* Test Item Value Reference Range Interpretation Comments Urine Color (test code = 5778-6) YELLOW YELLOW [facility] HospitalUrine Jovfync5590-43-34 12:00:00* Test Item Value Reference Range Interpretation Comments Urine Clarity (test code = 15766-1) CLEAR CLEAR [facility] HospitalUrine Specific Qrvwjex6445-44-39 12:00:00 * Test Item Value Reference Range Interpretation Comments Urine Specific [place] (test code = 5811-5) 1.025 1.010-1.02 5 [facility] HospitalUrine gC2041-27-76 12:00:00* Test Item Value Reference Range Interpretation Comments Urine pH (test code = 73857-8) 6 5-7 [facility] HospitalUrine Leukocyte Hbwuvjyv6259-70-87 12:00:00* Test Item Value Reference Range Interpretation Comments Urine Leukocyte Esterase (test code = 5799-2) NEGATIVE NEGATIVE [facility] HospitalUrine Sqldnpg7194-46-52 12:00:00* Test Item Value Reference Range Interpretation Comments Urine Nitrite (test code = 68663-8) NEGATIVE NEGATIVE [facility] HospitalUrine Zktqbbk4042-27-52 12:00:00* Test Item Value Reference Range Interpretation Comments Urine Protein (test code = 5804-0) NEGATIVE NEGATIVE [facility] HospitalUrine Glucose (UA)2018-12-09 12:00:00* Test Item Value Reference Range Interpretation Comments Urine Glucose (UA) (test code = 2349-9) NEGATIVE NEGATIVE [facility] HospitalUrine Kikjadp9618-31-47 12:00:00* Test Item Value Reference Range Interpretation Comments Urine Ketones (test code = 85231-9) NEGATIVE NEGATIVE [facility] HospitalUrine Tmxsakeodurk9182-86-46 12:00:00* Test Item Value Reference Range Interpretation Comments Urine Urobilinogen (test code = 65639-7) 0.2 0.2-1 [facility] HospitalUrine Uompfdqxb2322-13-93 12:00:00* Test Item Value Reference Range Interpretation Comments Urine Bilirubin (test code = 1978-6) NEGATIVE NEGATIVE [facility] HospitalU[facility] Ymqel3946-85-60 12:00:00* Test Item Value Reference Range Interpretation Comments Urine Blood (test code = 62454-7) TRACE NEGATIVE H [facility] HospitalUrine Idmhk3258-63-05 12:00:00* Test Item Value Reference Range Interpretation Comments Urine Color (test code = 5778-6) YELLOW YELLOW [facility] HospitalUrine Scrctpb5816-09-19 12:00:00* Test Item Value Reference Range Interpretation Comments Urine Clarity (test code = 56595-9) CLEAR CLEAR [facility] HospitalUrine Specific Zbjhpyx7497-52-81 12:00:00 * Test Item Value Reference Range Interpretation Comments Urine Specific [place] (test code = 5811-5) 1.025 1.010-1.02 5 [facility] HospitalUrine qO3068-27-34 12:00:00* Test Item Value Reference Range Interpretation Comments Urine pH (test code = 81774-8) 6 5-7 [facility] HospitalUrine Leukocyte Efimucxf6603-53-34 12:00:00* Test Item Value Reference Range Interpretation Comments Urine Leukocyte Esterase (test code = 5799-2) NEGATIVE NEGATIVE [facility] Csdtycs5004-46-28 12:00:00* Test Item Value Reference Range Interpretation Comments Urine Nitrite (test code = 52910-2) NEGATIVE NEGATIVE [facility] HospitalU[facility] Jvrhrak0554-29-01 12:00:00* Test Item Value Reference Range Interpretation Comments Urine Protein (test code = 5804-0) NEGATIVE NEGATIVE [facility] HospitalUrine Glucose (UA)2018-12-09 12:00:00* Test Item Value Reference Range Interpretation Comments Urine Glucose (UA) (test code = 2349-9) NEGATIVE NEGATIVE [facility] HospitalU[facility] Eomolxn4822-35-05 12:00:00* Test Item Value Reference Range Interpretation Comments Urine Ketones (test code = 73182-4) NEGATIVE NEGATIVE [facility] Rlnwfrhpuyeu8999-11-89 12:00:00* Test Item Value Reference Range Interpretation Comments Urine Urobilinogen (test code = 77886-2) 0.2 0.2-1 [facility] HospitalU[facility] Filqwvqtk3421-10-85 12:00:00* Test Item Value Reference Range Interpretation Comments Urine Bilirubin (test code = 1978-6) NEGATIVE NEGATIVE [facility] Ntyvl9648-03-26 12:00:00* Test Item Value Reference Range Interpretation Comments Urine Blood (test code = 33353-1) TRACE NEGATIVE H [facility] HospitalU[facility] Uuyyk4722-56-50 12:00:00* Test Item Value Reference Range Interpretation Comments Urine Color (test code = 5778-6) YELLOW YELLOW [facility] HospitalU[facility] Vhrhiyu0400-74-56 12:00:00* Test Item Value Reference Range Interpretation Comments Urine Clarity (test code = 59941-3) CLEAR CLEAR [facility] HospitalUrine Specific Lcscsjz5073-62-24 12:00:00 * Test Item Value Reference Range Interpretation Comments Urine Specific [place] (test code = 5811-5) 1.025 1.010-1.02 5 [facility] nE7975-11-35 12:00:00* Test Item Value Reference Range Interpretation Comments Urine pH (test code = 27941-7) 6 5-7 [facility] HospitalU[facility] Leukocyte Ljatoxda5992-87-55 12:00:00* Test Item Value Reference Range Interpretation Comments Urine Leukocyte Esterase (test code = 5799-2) NEGATIVE NEGATIVE [facility] Vhnpoyb1862-74-32 12:00:00* Test Item Value Reference Range Interpretation Comments Urine Nitrite (test code = 86580-3) NEGATIVE NEGATIVE [facility] Eprzxeg3044-11-96 12:00:00* Test Item Value Reference Range Interpretation Comments Urine Protein (test code = 5804-0) NEGATIVE NEGATIVE [facility] HospitalUrine Glucose (UA)2018-12-09 12:00:00* Test Item Value Reference Range Interpretation Comments Urine Glucose (UA) (test code = 2349-9) NEGATIVE NEGATIVE [facility] Egflikx2248-68-92 12:00:00* Test Item Value Reference Range Interpretation Comments Urine Ketones (test code = 23823-9) NEGATIVE NEGATIVE [facility] Auqvficofnyb4894-86-61 12:00:00* Test Item Value Reference Range Interpretation Comments Urine Urobilinogen (test code = 84669-7) 0.2 0.2-1 [facility] Moddewwpq2844-45-06 12:00:00* Test Item Value Reference Range Interpretation Comments Urine Bilirubin (test code = 1978-6) NEGATIVE NEGATIVE [facility] Pihlc1421-95-29 12:00:00* Test Item Value Reference Range Interpretation Comments Urine Blood (test code = 77126-3) TRACE NEGATIVE H [facility] Pytcg3025-33-68 12:00:00* Test Item Value Reference Range Interpretation Comments Urine Color (test code = 5778-6) YELLOW YELLOW [facility] HospitalU[facility] Ydnxick7956-62-84 12:00:00* Test Item Value Reference Range Interpretation Comments Urine Clarity (test code = 94586-4) CLEAR CLEAR [facility] [id number] 12:00:00 * Test Item Value Reference Range Interpretation Comments Urine Specific [place] (test code = 5811-5) 1.025 1.010-1.02 5 [facility] [id number] 12:00:00* Test Item Value Reference Range Interpretation Comments Urine pH (test code = 46467-4) 6 5-7 [facility] Leukocyte Ybfyaykj3358-84-41 12:00:00* Test Item Value Reference Range Interpretation Comments Urine Leukocyte Esterase (test code = 5799-2) NEGATIVE NEGATIVE [facility] Kzbsgtb6502-16-91 12:00:00* Test Item Value Reference Range Interpretation Comments Urine Nitrite (test code = 88877-1) NEGATIVE NEGATIVE [facility] Wfutumk9282-21-26 12:00:00* Test Item Value Reference Range Interpretation Comments Urine Protein (test code = 5804-0) NEGATIVE NEGATIVE [facility] Glucose (UA)2018-12-09 12:00:00* Test Item Value Reference Range Interpretation Comments Urine Glucose (UA) (test code = 2349-9) NEGATIVE NEGATIVE [facility] [id number] 12:00:00* Test Item Value Reference Range Interpretation Comments Urine Ketones (test code = 84372-9) NEGATIVE NEGATIVE [facility] Fopcdjttpovb1194-36-52 12:00:00* Test Item Value Reference Range Interpretation Comments Urine Urobilinogen (test code = 63172-8) 0.2 0.2-1 [facility] Qigjqragy4219-12-45 12:00:00* Test Item Value Reference Range Interpretation Comments Urine Bilirubin (test code = 1978-6) NEGATIVE NEGATIVE [facility] Tongc1515-27-78 12:00:00* Test Item Value Reference Range Interpretation Comments Urine Blood (test code = 48310-8) TRACE NEGATIVE H [facility]White Blood Udlqn1036-35-19 11:59:00* Test Item Value Reference Range Interpretation Comments White Blood Count (test code = 6690-2) 6.04 4.8-10.8 [facility] Mgxqi1011-41-36 11:59:00* Test Item Value Reference Range Interpretation Comments Red Blood Count (test code = 789-8) 4.79 3.6-5.1 [facility]Hemoglobin2019-01-27 11:59:00* Test Item Value Reference Range Interpretation Comments Hemoglobin (test code = 14249-8) 14.3 12.0-16.0 [facility]Hematocrit2019-01-27 11:59:00* Test Item Value Reference Range Interpretation Comments Hematocrit (test code = 4544-3) 41.2 34.2-44.1 [facility] HospitalMean Corpuscular Vqhwug1953-93-78 11:59:00* Test Item Value Reference Range Interpretation Comments Mean Corpuscular Volume (test code = 787-2) 86.0 81-99 [facility]Mean Corpuscular Aziawevwej3123-99-15 11:59:00* Test Item Value Reference Range Interpretation Comments Mean Corpuscular Hemoglobin (test code = 785-6) 29.9 28-32 [facility]Mean Corpuscular Hemoglobin Concent 2018-12-09 11:59:00* Test Item Value Reference Range Interpretation Comments Mean Corpuscular Hemoglobin Concent (test code = 786-4) 34.7 31-35 [facility]Red Cell Distribution Vxgxt4693-01-31 11:59:00* Test Item Value Reference Range Interpretation Comments Red Cell Distribution Width (test code = 44043-2) 13.2 11.7 -14.4 [facility] HospitalPlatelet Goukb0940-79-69 11:59:00* Test Item Value Reference Range Interpretation Comments Platelet Count (test code = 777-3) 263 140-360 [facility]Neutrophils (%) (Auto)2018-12-09 11:59:00 * Test Item Value Reference Range Interpretation Comments Neutrophils (%) (Auto) (test code = 91135-0) 67.0 38.7-80.0 [facility] HospitalLymphocytes (%) (Auto)2018-12-09 11:59:00 * Test Item Value Reference Range Interpretation Comments Lymphocytes (%) (Auto) (test code = 736-9) 25.3 18.0-39.1 [facility]Monocytes (%) (Auto)2018-12-09 11:59:00* Test Item Value Reference Range Interpretation Comments Monocytes (%) (Auto) (test code = 5905-5) 4.5 4.4-11.3 [facility]Eosinophils (%) (Auto)2018-12-09 11:59:00 * Test Item Value Reference Range Interpretation Comments Eosinophils (%) (Auto) (test code = 713-8) 2.2 0.0-6.0 [facility]Basophils (%) (Auto)2018-12-09 11:59:00* Test Item Value Reference Range Interpretation Comments Basophils (%) (Auto) (test code = 706-2) 0.5 0.0-1.0 [facility] HospitalIM GRANULOCYTES %2018-12-09 11:59:00* Test Item Value Reference Range Interpretation Comments IM GRANULOCYTES % (test code = IM GRANULOCYTES %) 0.5 0.0- 1.0 [facility] HospitalNeutrophils # (Auto)2018-12-09 11:59:00* Test Item Value Reference Range Interpretation Comments Neutrophils # (Auto) (test code = 751-8) 4.1 2.1-6.9 [facility] HospitalLymphocytes # (Auto)2018-12-09 11:59:00* Test Item Value Reference Range Interpretation Comments Lymphocytes # (Auto) (test code = 50064-3) 1.5 1.0-3.2 [facility]Monocytes # (Auto)2018-12-09 11:59:00* Test Item Value Reference Range Interpretation Comments Monocytes # (Auto) (test code = 742-7) 0.3 0.2-0.8 [facility]Eosinophils # (Auto)2018-12-09 11:59:00* Test Item Value Reference Range Interpretation Comments Eosinophils # (Auto) (test code = 711-2) 0.1 0.0-0.4 [facility]Basophils # (Auto)2018-12-09 11:59:00* Test Item Value Reference Range Interpretation Comments Basophils # (Auto) (test code = 704-7) 0.0 0.0-0.1 [facility] HospitalAbsolute Immature Granulocyte (auto 2018-12-09 11:59:00* Test Item Value Reference Range Interpretation Comments Absolute Immature Granulocyte (auto (rica t code = Absolute Immature Granulocyte (auto) 0.03 0-0.1 [facility] HospitalWhite Blood Ggsxs7369-89-73 11:59:00* Test Item Value Reference Range Interpretation Comments White Blood Count (test code = 6690-2) 6.04 4.8-10.8 [facility]Red Blood Vrowc3746-87-17 11:59:00* Test Item Value Reference Range Interpretation Comments Red Blood Count (test code = 789-8) 4.79 3.6-5.1 [facility] HospitalHemoglobin2019-01-27 11:59:00* Test Item Value Reference Range Interpretation Comments Hemoglobin (test code = 02992-2) 14.3 12.0-16.0 [facility] HospitalHematocrit2019-01-27 11:59:00* Test Item Value Reference Range Interpretation Comments Hematocrit (test code = 4544-3) 41.2 34.2-44.1 [facility] HospitalMean Corpuscular Lakdcf6697-59-09 11:59:00* Test Item Value Reference Range Interpretation Comments Mean Corpuscular Volume (test code = 787-2) 86.0 81-99 [facility] HospitalMean Corpuscular Tepqqjoumh8056-46-87 11:59:00* Test Item Value Reference Range Interpretation Comments Mean Corpuscular Hemoglobin (test code = 785-6) 29.9 28-32 [facility] Corpuscular Hemoglobin Concent 2018-12-09 11:59:00* Test Item Value Reference Range Interpretation Comments Mean Corpuscular Hemoglobin Concent (test code = 786-4) 34.7 31-35 [facility] HospitalRed Cell Distribution Tocsb9342-33-23 11:59:00* Test Item Value Reference Range Interpretation Comments Red Cell Distribution Width (test code = 86046-4) 13.2 11.7 -14.4 [facility] HospitalPlatelet Ctxlc3274-82-11 11:59:00* Test Item Value Reference Range Interpretation Comments Platelet Count (test code = 777-3) 263 140-360 [facility] HospitalNeutrophils (%) (Auto)2018-12-09 11:59:00 * Test Item Value Reference Range Interpretation Comments Neutrophils (%) (Auto) (test code = 92423-0) 67.0 38.7-80.0 [facility] HospitalLymphocytes (%) (Auto)2018-12-09 11:59:00 * Test Item Value Reference Range Interpretation Comments Lymphocytes (%) (Auto) (test code = 736-9) 25.3 18.0-39.1 [facility] HospitalMonocytes (%) (Auto)2018-12-09 11:59:00* Test Item Value Reference Range Interpretation Comments Monocytes (%) (Auto) (test code = 5905-5) 4.5 4.4-11.3 [facility] HospitalEosinophils (%) (Auto)2018-12-09 11:59:00 * Test Item Value Reference Range Interpretation Comments Eosinophils (%) (Auto) (test code = 713-8) 2.2 0.0-6.0 [facility] HospitalBasophils (%) (Auto)2018-12-09 11:59:00* Test Item Value Reference Range Interpretation Comments Basophils (%) (Auto) (test code = 706-2) 0.5 0.0-1.0 [facility] HospitalIM GRANULOCYTES %2018-12-09 11:59:00* Test Item Value Reference Range Interpretation Comments IM GRANULOCYTES % (test code = IM GRANULOCYTES %) 0.5 0.0- 1.0 [facility] HospitalNeutrophils # (Auto)2018-12-09 11:59:00* Test Item Value Reference Range Interpretation Comments Neutrophils # (Auto) (test code = 751-8) 4.1 2.1-6.9 [facility] HospitalLymphocytes # (Auto)2018-12-09 11:59:00* Test Item Value Reference Range Interpretation Comments Lymphocytes # (Auto) (test code = 62029-5) 1.5 1.0-3.2 [facility] HospitalMonocytes # (Auto)2018-12-09 11:59:00* Test Item Value Reference Range Interpretation Comments Monocytes # (Auto) (test code = 742-7) 0.3 0.2-0.8 [facility] HospitalEosinophils # (Auto)2018-12-09 11:59:00* Test Item Value Reference Range Interpretation Comments Eosinophils # (Auto) (test code = 711-2) 0.1 0.0-0.4 [facility] HospitalBasophils # (Auto)2018-12-09 11:59:00* Test Item Value Reference Range Interpretation Comments Basophils # (Auto) (test code = 704-7) 0.0 0.0-0.1 [facility] HospitalAbsolute Immature Granulocyte (auto 2018-12-09 11:59:00* Test Item Value Reference Range Interpretation Comments Absolute Immature Granulocyte (auto (rica t code = Absolute Immature Granulocyte (auto) 0.03 0-0.1 [facility] HospitalWhite Blood Undao8726-47-79 11:59:00* Test Item Value Reference Range Interpretation Comments White Blood Count (test code = 6690-2) 6.04 4.8-10.8 [facility] HospitalRed Blood Jolpa1292-80-30 11:59:00* Test Item Value Reference Range Interpretation Comments Red Blood Count (test code = 789-8) 4.79 3.6-5.1 [facility] HospitalHemoglobin2019-01-27 11:59:00* Test Item Value Reference Range Interpretation Comments Hemoglobin (test code = 29159-0) 14.3 12.0-16.0 [facility] HospitalHematocrit2019-01-27 11:59:00* Test Item Value Reference Range Interpretation Comments Hematocrit (test code = 4544-3) 41.2 34.2-44.1 [facility] HospitalMean Corpuscular Tleenn1750-01-38 11:59:00* Test Item Value Reference Range Interpretation Comments Mean Corpuscular Volume (test code = 787-2) 86.0 81-99 [facility] HospitalMean Corpuscular Qhassrhhwg6487-49-48 11:59:00* Test Item Value Reference Range Interpretation Comments Mean Corpuscular Hemoglobin (test code = 785-6) 29.9 28-32 [facility] HospitalMean Corpuscular Hemoglobin Concent 2018-12-09 11:59:00* Test Item Value Reference Range Interpretation Comments Mean Corpuscular Hemoglobin Concent (test code = 786-4) 34.7 31-35 [facility] HospitalRed Cell Distribution Nzixy3312-49-12 11:59:00* Test Item Value Reference Range Interpretation Comments Red Cell Distribution Width (test code = 44120-5) 13.2 11.7 -14.4 [facility] HospitalPlatelet Jclzo0151-03-00 11:59:00* Test Item Value Reference Range Interpretation Comments Platelet Count (test code = 777-3) 263 140-360 [facility] HospitalNeutrophils (%) (Auto)2018-12-09 11:59:00 * Test Item Value Reference Range Interpretation Comments Neutrophils (%) (Auto) (test code = 60803-1) 67.0 38.7-80.0 [facility] HospitalLymphocytes (%) (Auto)2018-12-09 11:59:00 * Test Item Value Reference Range Interpretation Comments Lymphocytes (%) (Auto) (test code = 736-9) 25.3 18.0-39.1 [facility] HospitalMonocytes (%) (Auto)2018-12-09 11:59:00* Test Item Value Reference Range Interpretation Comments Monocytes (%) (Auto) (test code = 5905-5) 4.5 4.4-11.3 [facility] HospitalEosinophils (%) (Auto)2018-12-09 11:59:00 * Test Item Value Reference Range Interpretation Comments Eosinophils (%) (Auto) (test code = 713-8) 2.2 0.0-6.0 [facility] HospitalBasophils (%) (Auto)2018-12-09 11:59:00* Test Item Value Reference Range Interpretation Comments Basophils (%) (Auto) (test code = 706-2) 0.5 0.0-1.0 [facility] HospitalIM GRANULOCYTES %2018-12-09 11:59:00* Test Item Value Reference Range Interpretation Comments IM GRANULOCYTES % (test code = IM GRANULOCYTES %) 0.5 0.0- 1.0 [facility] HospitalNeutrophils # (Auto)2018-12-09 11:59:00* Test Item Value Reference Range Interpretation Comments Neutrophils # (Auto) (test code = 751-8) 4.1 2.1-6.9 [facility] HospitalLymphocytes # (Auto)2018-12-09 11:59:00* Test Item Value Reference Range Interpretation Comments Lymphocytes # (Auto) (test code = 09609-5) 1.5 1.0-3.2 [facility] HospitalMonocytes # (Auto)2018-12-09 11:59:00* Test Item Value Reference Range Interpretation Comments Monocytes # (Auto) (test code = 742-7) 0.3 0.2-0.8 [facility] HospitalEosinophils # (Auto)2018-12-09 11:59:00* Test Item Value Reference Range Interpretation Comments Eosinophils # (Auto) (test code = 711-2) 0.1 0.0-0.4 [facility] HospitalBasophils # (Auto)2018-12-09 11:59:00* Test Item Value Reference Range Interpretation Comments Basophils # (Auto) (test code = 704-7) 0.0 0.0-0.1 [facility] HospitalAbsolute Immature Granulocyte (auto 2018-12-09 11:59:00* Test Item Value Reference Range Interpretation Comments Absolute Immature Granulocyte (auto (rica t code = Absolute Immature Granulocyte (auto) 0.03 0-0.1 [facility] HospitalCT [facility]/PEL WITH FZKBASFO-[id number] 15:46:00 [place] [address] Patient Name: SUYAPA BELTRAN MR #: [id number] : 1970 Age/Sex: 48/F Req #: [id number] Adm Physician: Ordered by: YONATAN PARKER MD Report #: [id number] Location: [facility] Room/Bed: Procedure: [id number] HOPD/CT ABD/PEL WITH CONTRAST-HOPD Exam Date: Exam Time: REP ORT STATUS: Signed EXAMINATION: CT of the abdomen and pelvis with contrast. TECHNIQUE: Helical CT images of the abdomen and pelvis were performed from the lung bases to the lesser trochanters after the intravenous administration of 100 cc of Isovue 300 and the oral administration of none. Coronal and sa gittal reformatted images were obtained. COMPARISON: September 19, 2017 CLINICAL HISTORY:Abdominal pain DISCUSSION: ABDOMEN/PELVIS: LOWER THORAX:Unremarkable. HEPATOBILIARY: Hepatic steatosis No intra-or extrahepatic biliary ductal dilation. The gallbladder is normal. SPLE EN: No splenomegaly. PANCREAS: No focal masses or ductal dilatation. ADRENALS: No adrenal nodules. KIDNEYS/URETERS: 2 cm left renal hypodensity, likely cyst and is stable. PELVIC ORGANS/BLADDER: The bladder is normal. Hysterectomy. PERITONEUM/RETROPERITONEUM: No free air or fluid. LYMPH NODES: No intra-abdominal, retroperitoneal, pelvic or inguinal lymphadenopath y. VESSELS: The celiac trunk,superior and inferior mesenteric and bilateral renal arteries are patent The portal, superior mesenteric and splenic veins are patent. GI TRACT: No distention or wall thickening. Appendix appears absent. Lap band at the gastroesophageal junction appears intact. No slippage. BONES AND SOFT TISSUE: No bony destructive lesions. Sclerosis at the sacroiliac joint related to prior stress response. IMPRESSION: No ac katty CT finding. Hepatic steatosis. Lap band without slippage. Signed by : Dr. Zeus Borrero M.D. on 07/30/2018 3:50 PM Dictated By: ZEUS MCCLAIN MD [id number] Transcr ibed By: SIMONA on 07/30/18 1531 COPY TO: YONATAN PARKER MD POCT-GLUCOSE [id number] 13:23:00* Test Item Value Reference Range Interpretation Comments POC-GLUCOSE METER (BEAKER) (test code = 1538) 103 mg/dL 70-[address] [facility] [address] [facility] [address] CREATINE KINASE (CK), TOTAL AND [id number] 12:59:00* Test Item Value Reference Range Interpretation Comments CREATINE KINASE TOTAL (BEAKER) (test code = 380) 49 U/L 29-20 0 CREATINE KINASE-MB (BEAKER) (test code = 750) 0.6 ng/mL 0.0-6.6 CREATINE KINASE-MB INDEX (BEAKER) (test code = 395) 1.2 % Effective 09/30/2014: CK-MB Reference Range ChangeNew: 0.0-6.6 Previous: 0.0- 4.9CK-MB Reference Range:<6.7 Normal6.7-10.0 Borderline>10.0 Abnormal HEMOGLOBIN [id number] 10:01:00* Test Item Value Reference Range Interpretation Comments HEMOGLOBIN A1C (FITZAKER) (test code = 368) 5.3 % 4.3-6.1 CREATINE KINASE (CK), TOTAL AND [id number] 07:12:00* Test Item Value Reference Range Interpretation Comments CREATINE KINASE TOTAL (BEAKER) (test code = 380) 39 U/L 29-20 0 CREATINE KINASE-MB (BEAKER) (test code = 750) 0.5 ng/mL 0.0-6.6 CREATINE KINASE-MB INDEX (BEAKER) (test code = 395) 1.3 % Effective 09/30/2014: CK-MB Reference Range ChangeNew: 0.0-6.6 Previous: 0.0- 4.9CK-MB Reference Range:<6.7 Normal6.7-10.0 Borderline>10.0 Abnormal TROPONIN [id number] 07:12:00* Test Item Value Reference Range Interpretation Comments TROPONIN I (VESTA) (test code = 397) < ng/mL 0.00-0.03 Effective 09/30/2014: Reference Range ChangeNew: 0.00-0.03 Previous 0.00-0.15T roponin I (TnI) levels must be interpreted in the context of the presenting symp toms and the clinical findings. Elevated TnI levels indicate myocardial damage, but are not specific for ischemic heart disease. Elevated TnI levels are seen in patients with other cardiac conditions (including myocarditis and congestive he art failure), and slight TnI elevations occur in patients with other conditions, including sepsis, renal failure, acidosis, acute neurological disease, and pers istent tachyarrhythmia.LIPID [id number] 07:05:00* Test Item Value Reference Range Interpretation Comments TRIGLYCERIDES (BEAKER) (test code = 540) 106 mg/dL CHOLESTEROL (BEAKER) (test code = 631) 193 mg/dL HDL CHOLESTEROL (BEAKER) (test code = 976) 43 mg/dL LDL CHOLESTEROL CALCULATED (BEAKER) (test code = 633) 129 mg/dL Triglyceride Reference Range: Low Risk <150 Borderline 150-199 High Risk 200-499 Very High Risk >=500Cholesterol Reference Range: Low Risk <200 Borderline 200-239 High Risk >240HDL Cholesterol Reference Range: Low Risk >=60 High Risk <40LDL Cholesterol Reference Range: Optimal <100 Near Optimal 100-129 Borderline 130-159 High 160-189 Very High >=190 BASIC METABOLIC [id number] 07:05:00* Test Item Value Reference Range Interpretation Comments SODIUM (BEAKER) (test code = 381) 138 meq/L 136-145 POTASSIUM (BEAKER) (test code = 379) 4.0 meq/L 3.5-5.1 CHLORIDE (BEAKER) (test code = 382) 107 meq/L 98-107 CO2 (BEAKER) (test code = 355) 20 meq/L 22-29 L BLOOD UREA NITROGEN (BEAKER) (test code = 354) 20 mg/dL 7-21 CREATININE (BEAKER) (test code = 358) 0.68 mg/dL 0.57-1.25 GLUCOSE RANDOM (BEAKER) (test code = 652) 92 mg/dL 70-105 CALCIUM (BEAKER) (test code = 697) 9.0 mg/dL 8.4-10.2 EGFR (BEAKER) (test code = 1092) 94 mL/min/1.73 sq m ESTIMATED GFR IS NOT ACCURATE CREATININE CLEARANCE IN PREDICTING GLOMERULAR FILTRATION RATE. ESTIMATED GFR IS NOT APPLICABLE FOR DIALYSIS PATIENTS. CREATINE KINASE (CK), TOTAL AND [id number] 01:00:00* Test Item Value Reference Range Interpretation Comments CREATINE KINASE TOTAL (BEAKER) (test code = 380) 33 U/L 29-20 0 CREATINE KINASE-MB (BEAKER) (test code = 750) 0.4 ng/mL 0.0-6.6 CREATINE KINASE-MB INDEX (BEAKER) (test code = 395) 1.2 % Effective 09/30/2014: CK-MB Reference Range ChangeNew: 0.0-6.6 Previous: 0.0- 4.9CK-MB Reference Range:<6.7 Normal6.7-10.0 Borderline>10.0 Abnormal TROPONIN [id number] 01:00:00* Test Item Value Reference Range Interpretation Comments TROPONIN I (BEAKER) (test code = 397) < ng/mL 0.00-0.03 Effective 09/30/2014: Reference Range ChangeNew: 0.00-0.03 Previous 0.00-0.15T roponin I (TnI) levels must be interpreted in the context of the presenting symp toms and the clinical findings. Elevated TnI levels indicate myocardial damage, but are not specific for ischemic heart disease. Elevated TnI levels are seen in patients with other cardiac conditions (including myocarditis and congestive he art failure), and slight TnI elevations occur in patients with other conditions, including sepsis, renal failure, acidosis, acute neurological disease, and pers istent tachyarrhythmia.HEPATIC FUNCTION [id number] 00:57:00* Test Item Value Reference Range Interpretation Comments TOTAL PROTEIN (BEAKER) (test code = 770) 7.7 gm/dL 6.0-8.3 Specimen slightly hemolyzed ALBUMIN (BEAKER) (test code = 1145) 4.2 g/dL 3.5-5.0 Specimen slightly hemolyzed BILIRUBIN TOTAL (BEAKER) (test code = 377) 0.6 mg/dL 0.2-1.2 Specimen slightly hemolyzed BILIRUBIN DIRECT (BEAKER) (test code = 706) 0.2 mg/dL 0.1-0.5 Specimen slightly hemolyzed ALKALINE PHOSPHATASE (BEAKER) (test code = 346) 129 U/L 40-150 AST (SGOT) (BEAKER) (test code = 353) 14 U/L 5-34 Specimen slightly hemolyzed ALT (SGPT) (BEAKER) (test code = 347) 16 U/L 6-55 Specimen slightly hemolyzed CBC W/PLT COUNT & AUTO [id number] 22:06:00* Test Item Value Reference Range Interpretation Comments WHITE BLOOD CELL COUNT (BEAKER) (test code = 775) 6.7 K/ L 4.0- 10.0 RED BLOOD CELL COUNT (BEAKER) (test code = 761) 4.41 M/ L 4.00-5 .00 HEMOGLOBIN (BEAKER) (test code = 410) 13.6 GM/DL 12.0-15.0 HEMATOCRIT (BEAKER) (test code = 411) 39.7 % 36.0-45.0 MEAN CORPUSCULAR VOLUME (BEAKER) (test code = 753) 90.0 fL 82. 0-99.0 MEAN CORPUSCULAR HEMOGLOBIN (BEAKER) (test code = 751) 30.9 pg 27.0-33.0 MEAN CORPUSCULAR HEMOGLOBIN CONC (BEAKER) (test code = 752) 34.3 GM/DL 32.0-36.0 RED CELL DISTRIBUTION WIDTH (BEAKER) (test code = 412) 12.3 % 10.3-14.2 PLATELET COUNT (BEAKER) (test code = 756) 245 K/CU MM 150-430 MEAN PLATELET VOLUME (BEAKER) (test code = 754) 7.0 fL 6.5-10 .5 NUCLEATED RED BLOOD CELLS (BEAKER) (test code = 413) 0 /100 WBC 0 -0 NEUTROPHILS RELATIVE PERCENT (BEAKER) (test code = 429) 65 % LYMPHOCYTES RELATIVE PERCENT (BEAKER) (test code = 430) 27 % MONOCYTES RELATIVE PERCENT (BEAKER) (test code = 431) 6 % EOSINOPHILS RELATIVE PERCENT (BEAKER) (test code = 432) 2 % BASOPHILS RELATIVE PERCENT (BEAKER) (test code = 437) 0 % NEUTROPHILS ABSOLUTE COUNT (BEAKER) (test code = 670) 4.38 K/ L 1.80-8.00 LYMPHOCYTES ABSOLUTE COUNT (BEAKER) (test code = 414) 1.81 K/ L 1.48-4.50 MONOCYTES ABSOLUTE COUNT (BEAKER) (test code = 415) 0.37 K/ L 0. 00-1.30 EOSINOPHILS ABSOLUTE COUNT (BEAKER) (test code = 416) 0.12 K/ L 0.00-0.50 BASOPHILS ABSOLUTE COUNT (BEAKER) (test code = 417) 0.01 K/ L 0. 00-0.20 0.00TROPONIN [id number] 19:51:00* Test Item Value Reference Range Interpretation Comments TROPONIN I (BEAKER) (test code = 397) < ng/mL 0.00-0.03 Effective 09/30/2014: Reference Range ChangeNew: 0.00-0.03 Previous 0.00-0.15T roponin I (TnI) levels must be interpreted in the context of the presenting symp toms and the clinical findings. Elevated TnI levels indicate myocardial damage, but are not specific for ischemic heart disease. Elevated TnI levels are seen in patients with other cardiac conditions (including myocarditis and congestive he art failure), and slight TnI elevations occur in patients with other conditions, including sepsis, renal failure, acidosis, acute neurological disease, and pers istent tachyarrhythmia.B-TYPE NATRIURETIC FACTOR (BNP)2017-02-06 17:49:00* Test Item Value Reference Range Interpretation Comments B-TYPE NATRIURETIC PEPTIDE (BEAKER) (test code = 700) < pg/mL 0-100 CREATINE KINASE (CK), TOTAL AND [id number] 17:47:00* Test Item Value Reference Range Interpretation Comments CREATINE KINASE TOTAL (BEAKER) (test code = 380) 42 U/L 29-20 0 CREATINE KINASE-MB (BEAKER) (test code = 750) 0.4 ng/mL 0.0-6.6 CREATINE KINASE-MB INDEX (BEAKER) (test code = 395) 1.0 % Effective 09/30/2014: CK-MB Reference Range ChangeNew: 0.0-6.6 Previous: 0.0- 4.9CK-MB Reference Range:<6.7 Normal6.7-10.0 Borderline>10.0 Abnormal [id number] 17:40:00* Test Item Value Reference Range Interpretation Comments MAGNESIUM (BEAKER) (test code = 627) 2.5 mg/dL 1.6-2.6 Specimen slightly hemolyzed BASIC METABOLIC [id number] 17:40:00* Test Item Value Reference Range Interpretation Comments SODIUM (BEAKER) (test code = 381) 137 meq/L 136-145 POTASSIUM (BEAKER) (test code = 379) 4.2 meq/L 3.5-5.1 Specimen slightly hemolyzed CHLORIDE (BEAKER) (test code = 382) 108 meq/L 98-107 H CO2 (BEAKER) (test code = 355) 15 meq/L 22-29 L BLOOD UREA NITROGEN (BEAKER) (test code = 354) 15 mg/dL 7-21 CREATININE (BEAKER) (test code = 358) 0.69 mg/dL 0.57-1.25 Specimen slightly hemolyzed GLUCOSE RANDOM (BEAKER) (test code = 652) 130 mg/dL 70-105 H CALCIUM (BEAKER) (test code = 697) 9.8 mg/dL 8.4-10.2 EGFR (BEAKER) (test code = 1092) 92 mL/min/1.73 sq m ESTIMATED GFR IS NOT ACCURATE CREATININE CLEARANCE IN PREDICTING GLOMERULAR FILTRATION RATE. ESTIMATED GFR IS NOT APPLICABLE FOR DIALYSIS PATIENTS. CBC W/PLT COUNT & AUTO [id number] 17:25:00* Test Item Value Reference Range Interpretation Comments WHITE BLOOD CELL COUNT (BEAKER) (test code = 775) 7.9 K/ L 4.0- 10.0 RED BLOOD CELL COUNT (BEAKER) (test code = 761) 5.04 M/ L 4.00-5 .00 H HEMOGLOBIN (BEAKER) (test code = 410) 15.3 GM/DL 12.0-15.0 H HEMATOCRIT (BEAKER) (test code = 411) 45.5 % 36.0-45.0 H MEAN CORPUSCULAR VOLUME (BEAKER) (test code = 753) 90.3 fL 82. 0-99.0 MEAN CORPUSCULAR HEMOGLOBIN (BEAKER) (test code = 751) 30.4 pg 27.0-33.0 MEAN CORPUSCULAR HEMOGLOBIN CONC (BEAKER) (test code = 752) 33.7 GM/DL 32.0-36.0 RED CELL DISTRIBUTION WIDTH (BEAKER) (test code = 412) 12.3 % 10.3-14.2 PLATELET COUNT (BEAKER) (test code = 756) 290 K/CU MM 150-430 MEAN PLATELET VOLUME (BEAKER) (test code = 754) 6.8 fL 6.5-10 .5 NUCLEATED RED BLOOD CELLS (BEAKER) (test code = 413) 0 /100 WBC 0 -0 NEUTROPHILS RELATIVE PERCENT (BEAKER) (test code = 429) 73 % LYMPHOCYTES RELATIVE PERCENT (BEAKER) (test code = 430) 22 % MONOCYTES RELATIVE PERCENT (BEAKER) (test code = 431) 4 % EOSINOPHILS RELATIVE PERCENT (BEAKER) (test code = 432) 1 % BASOPHILS RELATIVE PERCENT (BEAKER) (test code = 437) 1 % NEUTROPHILS ABSOLUTE COUNT (BEAKER) (test code = 670) 5.71 K/ L 1.80-8.00 LYMPHOCYTES ABSOLUTE COUNT (BEAKER) (test code = 414) 1.70 K/ L 1.48-4.50 MONOCYTES ABSOLUTE COUNT (BEAKER) (test code = 415) 0.31 K/ L 0. 00-1.30 EOSINOPHILS ABSOLUTE COUNT (BEAKER) (test code = 416) 0.08 K/ L 0.00-0.50 BASOPHILS ABSOLUTE COUNT (BEAKER) (test code = 417) 0.05 K/ L 0. 00-0.20 0.00URINALYSIS W/ [id number] 12:47:00* Test Item Value Reference Range Interpretation Comments COLOR (BEAKER) (test code = 470) Yellow CLARITY (BEAKER) (test code = 469) Clear SPECIFIC GRAVITY UA (BEAKER) (test code = 468) 1.015 1.001-1 .035 PH UA (BEAKER) (test code = 467) 5.0 5.0-8.0 PROTEIN UA (BEAKER) (test code = 464) Negative Negative GLUCOSE UA (BEAKER) (test code = 365) Negative Negative KETONES UA (BEAKER) (test code = 371) Negative Negative BILIRUBIN UA (BEAKER) (test code = 462) Negative Negative BLOOD UA (BEAKER) (test code = 461) Negative Negative NITRITE UA (BEAKER) (test code = 465) Negative Negative LEUKOCYTE ESTERASE UA (BEAKER) (test code = 466) Negative Negat ok UROBILINOGEN UA (BEAKER) (test code = 463) 0.2 mg/dL 0.2-1.0 RBC UA (BEAKER) (test code = 519) 0 /HPF WBC UA (BEAKER) (test code = 520) 0 /HPF MUCUS (BEAKER) (test code = 1574) Many SQUAMOUS EPITHELIAL (BEAKER) (test code = 516) 1 /HPF SOURCE(BEAKER) (test code = 2795) Urine, Clean Catch [id number] 12:46:00* Test Item Value Reference Range Interpretation Comments PROTIME (BEAKER) (test code = 759) 13.5 seconds 11.7-14.7 INR (BEAKER) (test code = 370) 1.0 <=5.9 PARTIAL THROMBOPLASTIN TIME (BEAKER) (test code = 760) 30.7 seconds 22.5-36.0 RECOMMENDED COUMADIN/WARFARIN INR THERAPY RANGESSTANDARD DOSE: 2.0 - 3.0 Inclu kyung: PROPHYLAXIS for venous thrombosis, systemic embolization; TREATMENT for frank ous thrombosis and/or pulmonary embolus.HIGH RISK: Target INR is 2.5-3.5 for pat ients with mechanical heart valves.CT ABDOMEN/PELVIS W [facility] [address] [address] Patient Name: SUYAPA WALTER MR #: [id number] : 1970 Age/Sex: 47/F Req #: [id number] Adm Physician: Ordered by: AUDREY WHITE MD Report #: [id number] Location: ER Room/Bed: Procedure: [id number] CT/CT ABDOMEN/PELVIS W Exam Date: 09/19/17 Exam Time: 2350 REPORT STATUS: Signed EXAM: CT Abdomen and Pelvis WITH contrast INDICATION: Abdo kristen pain COMPARISON: 06/19/2014 TECHNIQUE: Abdomen and pelvis were scanned u tilizing a multidetector helical scanner from the lung base to the pubic symph ysis after administration of IV contrast. Coronal and sagittal reformations we re obtained. Routine protocol was performed. Scan was performed when during po rtal venous phase. IV CONTRAST: 100 mL of Isovue-370 ORAL CONTRAST: Gastrografin RADIATION DOSE: Total DLP: ... mGy*cm Estimated effective dose: (DLP x 0.015 x size factor) mSv COMPLICATIONS: None FINDINGS: LINES and TUBES: None. LOWER THORAX: Unremarkable HEPATOBILIARY: The liver is diffuse hypodense jesse red to the spleen, consistent with diffuse hepatic diffuse hepatic steatosis. No focal hepatic lesions. No biliary ductal dilation. GALLBLADDER: No r adio-opaque stones or sludge. No wall thickening. SPLEEN: No splenomegaly. PANCREAS: No focal masses or ductal dilatation. ADRENALS: No adren al nodules KIDNEYS/URETERS: Kidneys enhance symmetrically. No hydronep hrosis. 2 cm hypodense lesion in the upper pole of the left kidney most likely a simple cyst No stones. GI TRACT: No abnormal distention, wall thicken ing, or evidence of bowel obstruction. Lap-band is visualized in good positio n and angulation. Appendix is not clearly identified. There is however no fat stranding or adenopathy in the right lower quadrant to suggest appendicitis. PELVIC ORGANS/BLADDER: There are postop changes of hysterectomy and bilateral oophorectomies. LYMPH NODES: No lymphadenopathy. VESSELS: Unremar kable. PERITONEUM / RETROPERITONEUM: No free air or fluid. BONES: Ther e are degenerative changes in the lumbar spine. SOFT TISSUES: Unremarkable. IMPRESSION: 1. No acute intra-abdominal or pelvic abnormal ity. 2. Diffuse hepatic steatosis. 3. Lap-band is well visualized in good alignment and position without slippage 4. Left renal upper pole simple cyst. Signed by: Dr. Jr Hanson M.D. on 09/20/2017 1:33 AM Dictated By: JR JIMENEZ MD 2 COPY TO: LEOBARDO WHITE RD, MD
== END 2020-08-09 02:08 | disposition home or self-care (01) ==
LOC: FSED 23:18
DX: R10.31 Right lower quadrant pain (principal); K21.9 Gastro-esophageal reflux disease without esophagitis; Z87.19 Personal history of other diseases of the digestive system
CPT/HCPCS: 74177; 80053; 81003; 85025; 96374; 96376; 99284; J1885; J2270; J2405; Q9967

== ENCOUNTER 2023-12-03 16:25 | Emergency (ER) | payer BC ==
[~2023-12-03] VITALS: Ht 172.7 cm; Wt 101.9 kg
[~2023-12-03 16:25] MED LIST changes: -TALTZ AUTO80 MG/1 ML
[2023-12-03] MEDS ORDERED: TALTZ AUTO80 MG/1 ML (16:52)
[2023-12-03] MEDS ORDERED: ACETAMINOPHEN 325 MG TAB PO ONE (17:00)
[2023-12-03] MEDS ORDERED: FAMOTIDINE 20 MG/2 ML VIAL IV ONE ×2 (17:00→18:18)
[2023-12-03] MEDS ORDERED: CEFTRIAXONE 1 GM VIAL IV ONE (17:00)
[2023-12-03] MEDS ORDERED: LACTATED RINGER'S 1,000 ML INJ ONE (17:00)
[2023-12-03] MEDS ORDERED: KETOROLAC TROMETHAMINE 30 MG/ML VIAL IV ONE (17:00)
[2023-12-03] MEDS ORDERED: ONDANSETRON HCL INJ 2MG/ML 2ML 2 MG/ML VIAL IV ONE (17:00)
[2023-12-03] MEDS ORDERED: IOPAMIDOL 370 MG/ML 100 ML INFUS..BTL INJ ONE (17:09)
[2023-12-03] MEDS ORDERED: CEFTRIAXONE 2 GM in SODIUM CHLORIDE 0.9% 100 ML IV ONE (17:30)
[2023-12-03] MEDS ORDERED: KETOROLAC TROMETHAMINE 30 MG/ML VIAL ONE (18:17)
[2023-12-03] MEDS ORDERED: LACTATED RINGER'S 1,000 ML ONE (18:17)
[2023-12-03] MEDS ORDERED: ACETAMINOPHEN 325 MG TAB ONE (18:17)
[2023-12-03] MEDS ORDERED: CEFTRIAXONE 1 GM VIAL ONE (18:17)
[2023-12-03] MEDS ORDERED: SODIUM CHLORIDE 0.9% 100 ML ONE (18:17)
[2023-12-03] MEDS ORDERED: ONDANSETRON HCL INJ 2MG/ML 2ML 2 MG/ML VIAL ONE (18:19)
[2023-12-03 19:49] VITALS: BP 143/67; PULSE 58; RESP 17; O2SAT 100
== END 2023-12-03 20:14 | disposition other institution (70) ==
LOC: MERGE 16:47 → FSED 16:47
DX: R51.9 Headache, unspecified (principal); R11.2 Nausea with vomiting, unspecified; G91.9 Hydrocephalus, unspecified; Q01.0 Frontal encephalocele; K21.9 Gastro-esophageal reflux disease without esophagitis; F41.9 Anxiety disorder, unspecified; M06.9 Rheumatoid arthritis, unspecified; Z98.84 Bariatric surgery status
CPT/HCPCS: 70450; 70487; 80053; 81003; 85025; 96374; 96375; 99284; J0696; J1885; J2405; J7050; J7121; Q9967

== ENCOUNTER → 2023-12-03 | Emergency (ER) ==
[~2023-12-03] MED LIST changes: +TALTZ AUTO80 MG/1 ML; +TYLENOL # 31 EA PO
== END | disposition left against medical advice (07) ==
LOC: ER 15:58 → MERGE 15:58
DX: R42 Dizziness and giddiness (principal)